=== PATIENT | male | born 1985 | race Caucasian/White ===

== ENCOUNTER 2022-04-19 17:43 | Inpatient (IN) | payer MEDICAID, SELFPAY ==
[2022-04-19] VITALS (17 sets, daily range): BP systolic 105–155; BP diastolic 72–86; PULSE 92–107; RESP 14–41; TEMP 36.7–38.2; O2SAT 83–100; BMI 80.5; BMI 76.5
--- NOTE | 2022-04-19 18:05 | EKG12_ITS ---
Test Reason : SOB Blood Pressure : / mmHG Vent. Rate : 100 BPM Atrial Rate : 100 BPM P-R Int : 174 ms QRS Dur : 108 ms QT Int : 366 ms P-R-T Axes : 039 -44 072 degrees QTc Int : 472 ms Normal sinus rhythm Possible Left atrial enlargement Left axis deviation Abnormal ECG Confirmed by JOANNA KIRKPATRICK, AGNES ([id number]), editor index ANGELIKA RYAN ([id number]) on 04/22/2022 1:54:27 PM Referred By: Confirmed By:AGNES MARSHALL MD
--- NOTE | 2022-04-19 18:06 | ED.VIS.DYS ---
HPI History of Present Illness Chief Complaint: Shortness of Breath Informant: patient, spouse/S.O. and other Narrative Narrative: Brought in by EMS from home increasing respiratory distress today. He reports this morning had migraine headaches he slept he states he woke up confused, he was on the couch sleeping they report he is taking short fast breaths home. EMS was contacted. History of sleep apnea last hospitalization 18 months ago at [facility] he was told he needed a sleep mask however due to cost over thousand dollars he did not pick this up. He chews tobacco. 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 Reported recent increasing leg swelling. He moved recently to the area with his significant other. Significant others daughter also present. He is hypoxic from EMS arrival. Reports cough when he chews tobacco however no upper respiratory illness. Prior similar symptoms: Yes [facility] Medical History (Updated 04/20/22 @ 00:[address] Yrn Ghosh DO) Horseshoe kidney Sleep apnea Home Medications NK 04/19/22 [History Last Taken Unknown] Allergy/AdvReac Type Severity Reaction Status Date / Time No Known Allergies Allergy Verified 04/19/22 17:45 Social History Smoking Status: Current every day smoker tobacco type: smokeless tobacco ROS ROS ED Constitutional Constitutional ED: Denies chills, fever(s) or sweats Eyes Eyes: Denies change in vision ENT ENT ED: Denies dysphagia or sore throat Cardiovascular Cardiovascular: Denies chest pain, leg edema, palpitations or racing heartbeat Respiratory/Chest Respiratory/Chest: Reports dyspnea; Denies cough or dyspnea on exertion Gastrointestinal Gastrointestinal: Denies abdominal pain, diarrhea, nausea or vomiting Genitourinary Genitourinary ED: Denies dysuria, hematuria or urinary frequency Musculoskeletal Musculoskeletal: Denies back pain, extremity pain or neck pain Integumentary Denies rash or wounds Neurologic Neurologic: Reports headache(s); Denies paresthesias or weakness EXAM Physical Exam Const Vital Signs: 04/19/22 17:45 04/19/22 17:51 04/19/22 17:50 Temperature 98.1 F 98.1 F Temperature Source Temporal Temporal Pulse Rate 107 H 99 Respiratory Rate 41 H 29 H Respiratory Effort Respiratory Pattern Blood Pressure 155/86 H Blood Pressure Mean 109 Pulse Ox 83 99 99 Oxygen Delivery Method Nasal Cannula Non-Rebreather Non-Rebreather Oxygen Flow Rate (L/min) 5 15 15 Fraction of Inspired Oxygen (FIO2) 04/19/22 18:00 04/19/22 18:05 04/19/22 18:45 Temperature Temperature Source Pulse Rate 98 Respiratory Rate 17 Respiratory Effort Respiratory Pattern Tachypnea Normal Blood Pressure Blood Pressure Mean Pulse Ox 94 Oxygen Delivery Method Room Air Oxygen Flow Rate (L/min) Fraction of Inspired Oxygen (FIO2) 50 04/19/22 19:24 04/19/22 19:43 04/19/22 19:46 Temperature Temperature Source Pulse Rate 94 Respiratory Rate 17 15 Respiratory Effort Short of Breath Head Bobbing Respiratory Pattern Gasping Blood Pressure 105/73 Blood Pressure Mean 83 Pulse Ox 97 95 Oxygen Delivery Method Oxygen Flow Rate (L/min) Fraction of Inspired Oxygen (FIO2) 04/19/22 19:50 04/19/22 20:00 04/19/22 19:50 Temperature 99.3 F H Temperature Source Core Pulse Rate 96 94 95 Respiratory Rate 19 H 19 H 16 Respiratory Effort Respiratory Pattern Blood Pressure 105/73 Blood Pressure Mean 83 Pulse Ox 97 95 100 Oxygen Delivery Method Mechanical Ventilator Oxygen Flow Rate (L/min) Fraction of Inspired Oxygen (FIO2) 04/19/22 19:25 Temperature Temperature Source Pulse Rate 100 Respiratory Rate 18 Respiratory Effort Respiratory Pattern Normal Blood Pressure Blood Pressure Mean Pulse Ox 98 Oxygen Delivery Method Oxygen Flow Rate (L/min) Fraction of Inspired Oxygen (FIO2) 100 Positive obese Constitutional Narrative: Nonrebreather 15 L, no respiratory distress. Nutritional Appearance: obese HEENT Reports moist mucous membranes normocephalic and atraumatic Eyes PERRL, EOMs intact bilaterally and conjunctivae normal General Eye ED: Yes normal appearance of both eyes Neck no lymphadenopathy and supple General: Negative for tenderness Chest Wall Chest: Negative for tenderness Resp Resp Narrative: Shallow breath diminished at the bases. Effort and Inspection: Negative for respiratory distress Cardio regular rate, regular rhythm and no murmurs Peripheral Pulses: pulses 2+ throughout GI normal to inspection, nondistended, normoactive bowel sounds and non-tender Palpation: Negative for guarding or rebound tenderness present Back/Spine no CVA tenderness and no thoracic nor lumbar tenderness Extremity normal to inspection Extremity Narrative: Signs andMinimal swelling lower extremities. Tach x4. General Extremety ED: Yes edema; Negative for tenderness General Extremity: edema Neuro oriented x3 and no sensory deficits noted Sensorium / Orientation: awake and alert Skin no rashes or lesions noted and no wounds MDM MDM MDM Narrative Medical decision making narrative: Interventions / MDM: Differential diagnosis: Hypercapnia, hypoxia, SYMONE, OHS, pneumonia Diagnosis considered but do not suspect: Pneumothorax however symmetric breath sounds. My EKG interpretation: Sinus rate of 100, no ST changes, isolated T wave version in aVL. Nonspecific. Imaging independently reviewed and interpreted by myself: 1 view chest x-ray: No infiltrate. Post chest x-ray x-ray confirms ET tube above the kishan. KUB 1 view notes OG tube in place. External documents reviewed: N/A Test considered but not ordered:N/A ED course: Arrival hypoxic on nasal cannula he was placed on a nonrebreather with improved oxygenation. He is alert and oriented during my evaluation. History concern for hypercapnia with reported confusion throughout the day. He denies any cough symptoms except when he chews tobacco there is been no fevers. Chest x-ray is no infiltrates. ABG noted pH of 7.08, CO2 of 136 PO2 of 222. He is placed on a BiPAP by respiratory due to hypercapnia. Labs with a white count 11 hemoglobin 14.4 creatinine 1.13.4 EKG did not have any abnormality. BNP 58. Re-evaluation: While on the BiPAP, patient unresponsive, more obtunded. Decision was made to intubate. Post chest x-ray confirmed positioning. Reported by respiratory while moving the patient, tube did progress therefore pulled back. COVID testing negative. I discussed with hospitalist for admission to ICU. Butterfield catheter placed for I's and O's. Disposition discussed with patient/family/significant other: Family Case discussed with consulting clinician: Hospitalist, Dr. Plasencia Procedure note: Intubation: Emergent due to hypercapnia now obtunded. Patient preoxygenated with his BiPAP in the 90s. Maintain an upright position, after mass was removed, plan with out sedation, however manipulation jawline he was clenching his eyes start opening he was not responsive. He was given 30 mg of etomidate, sedation achieved, MAC 4 blade was used direct visualization of the cords, 7.5 [place] tube was placed 26 cm at the lips. Held and secured by hand, I cannot auscultate bilateral breath sounds due to patient's body habitus. During this time, there was condensation pulse ox briefly dipped to the 60s went up to the 80s and low 90s. Prior to securing the tube, attempted to visualize tube through a bronchoscope nasally on the left side however due to secretions I could not see this directly with this. Suctioning around the tube due to emesis. While tube was held and secured, he was given succinylcholine 100 mg IV, he is more relaxed, I placed the glide a scope in and directly visualized that the tube was originally in place and secured. Tube was secured down by respiratory. Post chest x-ray films confirmed positioning. Lab Data Attestation: I reviewed the patient's lab results. Labs: Laboratory Results - last 24 hr 04/19/22 04/19/22 04/19/22 18:00 18:00 18:00 WBC 11.1 H RBC 5.02 Hgb 14.4 Hct 49.3 MCV 98.2 H MCH 28.7 MCHC 29.2 L RDW Std Deviation 53.9 H RDW Coeff of Zulma 15.0 H Plt Count 309 MPV 9.7 Immature Gran % (Auto) 3.100 H Neut % (Auto) 78.1 H Lymph % (Auto) 10.7 L [place] % (Auto) 6.9 Eos % (Auto) 0.4 Baso % (Auto) 0.8 Absolute Neuts (auto) 8.7 H Absolute Lymphs (auto) 1.19 Nucleated RBC % 1.6 PT 14.8 INR 1.2 APTT 26.8 Sodium 137 Potassium 5.4 H Chloride 97 L Carbon Dioxide 31.0 Anion Gap 9 BUN 10 Creatinine 1.03 Estim Creat Clear Calc 93.59 Est GFR (MDRD) Af Amer 105 Est GFR (MDRD) Non-Af 87 BUN/Creatinine Ratio 9.7 L Glucose 220 H Calcium 8.9 Total Bilirubin 0.40 AST 76 H ALT 90 H Alkaline Phosphatase 94 Total Creatine Kinase B-Natriuretic Peptide Total Protein 7.7 Albumin 2.7 L Globulin 5.0 H Albumin/Globulin Ratio 0.5 L Triglycerides 04/19/22 04/19/22 18:00 18:00 WBC RBC Hgb Hct MCV MCH MCHC RDW Std Deviation RDW Coeff of Zulma Plt Count MPV Immature Gran % (Auto) Neut % (Auto) Lymph % (Auto) [place] % (Auto) Eos % (Auto) Baso % (Auto) Absolute Neuts (auto) Absolute Lymphs (auto) Nucleated RBC % PT INR APTT Sodium Potassium Chloride Carbon Dioxide Anion Gap BUN Creatinine Estim Creat Clear Calc Est GFR (MDRD) Af Amer Est GFR (MDRD) Non-Af BUN/Creatinine Ratio Glucose Calcium Total Bilirubin AST ALT Alkaline Phosphatase Total Creatine Kinase 87 B-Natriuretic Peptide 58.4 Total Protein Albumin Globulin Albumin/Globulin Ratio Triglycerides 107 ABG Data ABG results: ABG 04/19/22 18:26 Specimen Type ART Sample Site R Radial pH 7.08 L* Bicarbonate Actual 40.4 H Total CO2 45 Base Excess 10 H O2 Saturation 99 ABG pCO2 136.5 H* ABG pO2 222 H Raza Test Positive O2 Delivery Device NRB Liter Flow 15.0 Crit Call To/Read Back Yes Blood Gas Notified Whom Le Radiography Diagnostic Testing: Clinical Impression(s) from Imaging Studies Chest X-Ray 04/19/22 18:30 IMPRESSION: 1. Cardiomegaly, mild vascular congestion without tanya interstitial edema. 2. Bibasilar atelectasis mild volume loss without focal infiltrate. Electronically Signed: Abdoul Matthew MD at 18:56 EST , Chest X-Ray 04/19/22 19:31 IMPRESSION: 1. ET tube and NG tube placed in the interval projecting in normal position. 2. Stable cardiomegaly, no evidence congestive failure. 3. Shallow inspiration bibasilar atelectasis with moderate worsening. Superimposed infiltrates are a consideration. Electronically Signed: Abdoul Matthew MD at 20:15 EST , KUB X-Ray 04/19/22 19:49 IMPRESSION: 1. NG tube extends into the proximal stomach. 2. Non-obstructive bowel gas pattern. Electronically Signed: Abdoul Matthew MD at 20:19 EST , EKG Initial EKG: Attestation: I personally reviewed and interpreted this EKG as follows: Comments: Sinus rate of 100, no ST changes, isolated T wave version in aVL. Nonspecific. Critical Care Time Critical Care Time: Yes Critical care time (excluding procedures): 30-74 minutes, Discussing w/Patient &/or Family/Radioisotope Technician, Discussing w/Consultants, Arranging Admission or Transfer, Performing Direct Patient Care at Bedside and - (40 minutes) Discharge Plan Dx/Rx/DC Orders Clinical Impression: Acute respiratory failure with hypoxia and hypercapnia, Sleep apnea, Chews tobacco Disposition Disposition: Acute Care Hospital [facility] Discharge Date/Time: 04/19/22 21:29
[2022-04-19 18:30] LABS: Allen Test Positive; Base Excess 10 mmol/L (-2 to +2); Bicarbonate 40.4 mmol/L (22-26); Blood Gas Specimen Type ART; O2 Delivery Device NRB; PO2 222 mmHG (75-100); SITE R Radial; SO2 99 % (95-99); Total Carbon Dioxide 45 mmol/L; pCO2 136.5 mmHg (35-45); pH 7.08 (7.35-7.45)
--- NOTE | 2022-04-19 18:30 | RAD_ITS ---
INDICATION: sob EXAMINATION/TECHNIQUE: X-RAY - XR Chest 1 View COMPARISON: No previous relevant examinations available for comparison.. FINDINGS: LIFE-SUPPORT AND LINES: 1. None HEART AND VESSELS: Cardiac silhouette is large, there is mild vascular congestion without tanya interstitial edema. LUNGS AND PLEURAL SPACES: Shallow inspiration crowding of bronchovascular markings without focal infiltrate or consolidation. No pulmonary mass is noted. MEDIASTINUM AND HILAR REGIONS: No masses adenopathy noted. No areas of calcification. Visualized upper airway is normal in position. BONY ELEMENTS: No acute bony changes noted. RAD/Chest 1 View (Portable) IMPRESSION: 1. Cardiomegaly, mild vascular congestion without tanya interstitial edema. 2. Bibasilar atelectasis mild volume loss without focal infiltrate. Electronically Signed: Abdoul Matthew MD at 18:56 EST ,
[2022-04-19 18:36] LABS: Absolute Lymphocyte Count 1.19 X10^3/uL (0.83-4.51); Absolute Neutrophil Count 8.7 X10^3/uL (2.0-7.7); Basophil# 0.09 X10^3/uL; Basophil% 0.8 % (0-1); Eosinophil# 0.04 X10^3/uL; Eosinophils% 0.4 % (0-5); Hematocrit 49.3 % (40-54); Hemoglobin 14.4 g/dL (13.0-16.5); Lymphocyte # 1.19 X10^3/ul (0.83-4.51); Lymphocyte % 10.7 % (19-41); Mean Corp Hgb Conc 29.2 g/dL (32-36); Mean Corpuscular Hgb 28.7 pg (27.0-32.0); Mean Corpuscular Volume 98.2 fL (80-94); Mean Platelet Vol. 9.7 fl (6.2-12.0); Monocyte# 0.77 X10^3/uL; Monocyte% 6.9 % (0-10); NRBC Flagged by Analyzer 1.6 % (0-5); Neutrophil # 8.69 X10^3/uL (2.7-7.7); Neutrophil % 78.1 % (47-70); Platelet Count 309 K/mm3 (150-450); RBC Distribution Width SD 53.9 fl (35.1-43.9); Red Blood Count 5.02 M/mm3 (4.6-6.2); White Blood Count 11.1 K/mm3 (4.4-11.0)
[2022-04-19 18:42] LABS: ALB/GLOB Ratio 0.5 RATIO (0.9-2.4); AST(SGOT) 76 U/L (15-37); Alanine Aminotransfer ALT/SGPT 90 U/L (16-61); Albumin, Serum 2.7 g/dL (3.2-5.0); Alkaline Phosphatase 94 U/L (45-117); Anion Gap 9 (5-15); BUN 10 mg/dL (7-18); BUN/Creat Ratio 9.7 RATIO (10-20); Calcium,Total 8.9 mg/dL (8.5-10.1); Chloride 97 mmol/L (98-107); Creatinine, Serum 1.03 mg/dL (0.70-1.30); EST Glomerular Filtration Rate 87 mL/min (>60); Est Glom Filt Rate - Afr Amer 105 mL/min (>60); Estimated Creatinine Clearance 93.59 ml/min; Glucose 220 mg/dL (74-106); Potassium 5.4 mmol/L (3.5-5.1); Protein, Total 7.7 g/dL (6.4-8.2); Sodium Level 137 mmol/L (136-145)
[2022-04-19 19:00] LABS: BNP,B-Type NATRIURETIC PEPTIDE 58.4 pg/mL (0-100)
[2022-04-19] MEDS: Etomidate 20 MG/10 ML Vial 30 MG IV (19:16)
[2022-04-19 19:17] LABS: International Normalized Ratio 1.2; Prothrombin Time (Protime)PT. 14.8 SECONDS (11.7-14.9)
[2022-04-19 19:18] LABS: Partial Thromboplast Time 26.8 Seconds (24.1-36.2)
[2022-04-19] MEDS: Succinylcholine Chloride 200 MG/10 ML SYRINGE 100 MG IV (19:26)
--- NOTE | 2022-04-19 19:31 | RAD_ITS ---
INDICATION: intubation EXAMINATION/TECHNIQUE: X-RAY - XR Chest 1 View COMPARISON: Earlier same date at 6:27 PM, 04/19/2022 FINDINGS: LIFE-SUPPORT AND LINES: 1. ET tube is in place the interval, projecting level of the aortic knob, approximately 2.3 cm above the kishan in normal position. 2. Interval placement of NG tube extending below the LEFT hemidiaphragm projecting within the stomach. HEART AND VESSELS: Cardiac silhouette is large, vascular congestion. No tanya congestive failure. LUNGS AND PLEURAL SPACES: Shallow inspiration bibasilar atelectasis with mild worsening at the lung bases. No consolidation, no effusion. No pulmonary mass is noted. MEDIASTINUM AND HILAR REGIONS: No masses adenopathy noted. No areas of calcification. Visualized upper airway is normal in position. BONY ELEMENTS: No acute bony changes noted. RAD/Chest 1 View (Portable) IMPRESSION: 1. ET tube and NG tube placed in the interval projecting in normal position. 2. Stable cardiomegaly, no evidence congestive failure. 3. Shallow inspiration bibasilar atelectasis with moderate worsening. Superimposed infiltrates are a consideration. Electronically Signed: Abdoul Matthew MD at 20:15 EST ,
--- NOTE | 2022-04-19 19:49 | RAD_ITS ---
INDICATION: NG Insertion EXAMINATION/TECHNIQUE: X-RAY - XR Abdomen 1 View COMPARISON: None FINDINGS: Tubes and lines: 1. NG tube extends into the proximal stomach.. BOWEL GAS PATTERN: Non-obstructive. No bowel or stomach distention. FREE AIR: Not assessed on a single supine view. ORGANOMEGALY: Not seen. CALCIFICATIONS: No abnormal calcifications observed. LOWER CHEST: No acute pathology. BONES AND SOFT TISSUES: No acute pathology. RAD/Abdomen Single View (Portable) IMPRESSION: 1. NG tube extends into the proximal stomach. 2. Non-obstructive bowel gas pattern. Electronically Signed: Abdoul Matthew MD at 20:19 EST ,
--- NOTE | 2022-04-19 20:05 | PCM.HP.STD ---
HPI - General General Date of Admission: 04/19/22 Date of Service: 04/19/22 Chief Complaint: Confusion HPI Narrative ISELA MORRISSEY, is a 36 M with hx of SYMONE who presented to [facility] 04/19/22 w/ confusion after waking up this afternoon from a nap. He was seen at [facility] around 18 months ago and they advised he obtain a cpap but it was too expensive and he has yet to obtain one. EMS arrived at his home at 630 and put him on oxygen and brought him to the ED where he was placed on BiPAP, initially in ED was alert and oriented x3 however progressively became more lethargic and required intubation secondary to acute combined respiratory failure. Hospitalist consulted for admission. Spoke with patient's family at bedside as he is intubated and sedated and they report that he was in his usual health until last night when he had a headache and slept on the couch, in the morning he was tired and was not eating well and waxed and waned throughout the day but frequently was sleeping. He then around 430 was progressively more confused and EMS was contacted shortly thereafter and he was brought to the ED. 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 Per family member at bedside he uses Breathe Right nasal strips which were helping his breathing but they ran out and he also recently gained weight and has been doing worse since that time. He has also had some intermittent swelling in his feet noticed by family and family member noted that previously he had taken a water pill every other day but has not for some time. Chews tobacco but no other tobacco products or drugs, used to drink but has not for the past 1 year since living with a family member. [facility] Medical History (Updated 04/19/22 @ 20:[address] Agueda Plasencia MD) Horseshoe kidney Sleep apnea Home Medications NK 04/19/22 [History Last Taken Unknown] Allergy/AdvReac Type Severity Reaction Status Date / Time No Known Allergies Allergy Verified 04/19/22 17:45 Social History Smoking Status: Current every day smoker tobacco type: smokeless tobacco ROS ROS Narrative Unable to obtain ROS secondary to intubated and sedated Vital Signs Vital Signs Vital Signs: 04/19/22 17:45 04/19/22 17:51 04/19/22 17:50 Temperature 98.1 F 98.1 F Temperature Source Temporal Temporal Pulse Rate 107 H 99 Respiratory Rate 41 H 29 H Respiratory Effort Respiratory Pattern Blood Pressure 155/86 H Blood Pressure Mean 109 Pulse Ox 83 99 99 Oxygen Delivery Method Nasal Cannula Non-Rebreather Non-Rebreather Oxygen Flow Rate (L/min) 5 15 15 Fraction of Inspired Oxygen (FIO2) 04/19/22 18:00 04/19/22 18:05 04/19/22 18:45 Temperature Temperature Source Pulse Rate 98 Respiratory Rate 17 Respiratory Effort Respiratory Pattern Tachypnea Normal Blood Pressure Blood Pressure Mean Pulse Ox 94 Oxygen Delivery Method Room Air Oxygen Flow Rate (L/min) Fraction of Inspired Oxygen (FIO2) 50 04/19/22 19:24 Temperature Temperature Source Pulse Rate Respiratory Rate Respiratory Effort Short of Breath Head Bobbing Respiratory Pattern Gasping Blood Pressure Blood Pressure Mean Pulse Ox Oxygen Delivery Method Oxygen Flow Rate (L/min) Fraction of Inspired Oxygen (FIO2) Weight Weight: 233.3 kg Body Mass Index (BMI) 80.5 Physical Exam Narrative General: Presently intubated and sedated HEENT: Atraumatic, normocephalic Eyes: Initially opening eyes spontaneously while OG being placed but is more comfortable reevaluation Neck: Large circumference Respiratory: Mechanically ventilated, diminished breath sounds largely due to body habitus Cardiovascular: Regular rate and rhythm GI: Soft, nontender, nondistended Extremities: Swelling lower extremities only trace pitting Musculoskeletal: Presently intubated and sedated, swelling as above Neuro: Unable to participate in neuro exam due to intubated and sedated but did have cough and would wake up to stimulation Skin: Multiple superficial wounds on face which family reports is chronic Psych: Unable to cooperate secondary to intubated and sedated Results Lab / Micro Data Result Diagrams: 04/19/22 18:00 04/19/22 18:00 Labs: Laboratory Results - last 24 hr 04/19/22 18:00: WBC 11.1 H, RBC 5.02, Hgb 14.4, Hct 49.3, MCV 98.2 H, MCH 28.7, MCHC 29.2 L, RDW Std Deviation 53.9 H, RDW Coeff of Zulma 15.0 H, Plt Count 309, MPV 9.7, Immature Gran % (Auto) 3.100 H, Neut % (Auto) 78.1 H, Lymph % (Auto) 10.7 L, [place] % (Auto) 6.9, Eos % (Auto) 0.4, Baso % (Auto) 0.8, Absolute Neuts (auto) 8.7 H, Absolute Lymphs (auto) 1.19, Nucleated RBC % 1.6 04/19/22 18:00: PT 14.8, INR 1.2, APTT 26.8 04/19/22 18:00: Sodium 137, Potassium 5.4 H, Chloride 97 L, Carbon Dioxide 31.0, Anion Gap 9, BUN 10, Creatinine 1.03, Estim Creat Clear Calc 93.59, Est GFR (MDRD) Af Amer 105, Est GFR (MDRD) Non-Af 87, BUN/Creatinine Ratio 9.7 L, Glucose 220 H, Calcium 8.9, Total Bilirubin 0.40, AST 76 H, ALT 90 H, Alkaline Phosphatase 94, Total Protein 7.7, Albumin 2.7 L, Globulin 5.0 H, Albumin/Globulin Ratio 0.5 L 04/19/22 18:00: B-Natriuretic Peptide 58.4 Micro: Microbiology 04/19/22 18:20 Nasal Secretion SARS-CoV-2 Antigen (Rapid) - Final ABG Data ABG results: ABG 04/19/22 18:26 Specimen Type ART Sample Site R Radial pH 7.08 L* Bicarbonate Actual 40.4 H Total CO2 45 Base Excess 10 H O2 Saturation 99 ABG pCO2 136.5 H* ABG pO2 222 H Raza Test Positive O2 Delivery Device NRB Liter Flow 15.0 Crit Call To/Read Back Yes Blood Gas Notified Whom Le Radiology Impression Chest X-Ray 04/19/22 18:30 IMPRESSION: 1. Cardiomegaly, mild vascular congestion without tanya interstitial edema. 2. Bibasilar atelectasis mild volume loss without focal infiltrate. Electronically Signed: Abdoul Matthew MD at 18:56 EST , Assessment & Plan Assessment/Plan (1) Acute respiratory failure with hypoxia and hypercapnia: PLAN: Plan #Acute combined hypoxic and hypercapnic respiratory failure and suspect component of chronic hypercarbic respiratory failure given SYMONE noncompliant with treatment -In ED initially improved with O2 and BiPAP however progressively became more lethargic and blood gas showed pH of 7.08 with PCO2 of 136 -Chest x-ray demonstrated cardiomegaly with mild vascular congestion without tanya interstitial edema and demonstrated bibasilar atelectasis without focal infiltrate -Presently intubated and sedated, will repeat ABG, nebs ordered -Suspect patient's headache and lethargy were due to hypercapnia due to untreated SYMONE with subsequent small shallow breaths contributing to hypoxia -We will obtain sputum culture, COVID-negative, will obtain respiratory panel and flu -We will obtain echo given some concomitant swelling -No antibiotics started as no infiltrate does not seem to have acute infection -Pulm/ICU consulted #Mild increase in LFTs -Given obesity but also alcohol history will obtain right upper quadrant #DVT ppx: Lovenox SQ twice daily Agueda Plasencia MD Time spent in the patient's overall evaluation,decision-making process, review of diagnostic data, adjustment of management, discussion with other providers, nursing nursing and ancillary staff involved in patient's care documentation, 60 minutes Charges/Coding Visit Charges Inpatient E&M: 11303 Init Hosp L2
[2022-04-19] MEDS: Propofol 10MG/Ml 1,000 MG/100 ML Bottle 14 MG CONT INF (20:13)
--- NOTE | 2022-04-19 20:49 | ECHOD_ITS ---
Reason For Study: DYSPNEA Procedure This was a 2D Doppler, Color Flow transthoracic echocardiogram. The study was technically difficult. Contrast deferred due to no on axis apical windows. Patient scanned supine. Exam performed portable in ICU/CCU. Left Ventricle Normal LV size. Moderate concentric left ventricular hypertrophy. The left ventricular ejection fraction is 55 %. Unable to assess diastolic function based on available data. Right Ventricle Normal right ventricle. Atria The left atrium is moderately enlarged. Normal right atrium. Mitral Valve Mitral valve not well visualized. The mitral valve is structurally normal. No prolapse or stenosis seen. Tricuspid Valve The tricuspid valve is not well visualized. Trivial tricuspid valve insufficiency. Unable to estimate RV systolic pressure due to insufficient tricuspid regurgitant envelope. Aortic Valve Trisinus/trileaflet aortic valve. Trivial aortic valve insufficiency. Pulmonic Valve The pulmonic valve is not well visualized. Great Vessels Mild to moderately dilated aortic root. Pericardium/Pleural No pericardial effusion. MMode/2D Measurements & Calculations LVIDd: 5.0 cm IVSd: 1.6 cm Ao root diam: 4.4 cm LVIDs: 3.6 cm LVPWd: 1.6 cm FS: 29.4 % LA dimension(2D): 4.5 cm Time Measurements MV dec time: 0.06 sec Doppler Measurements & Calculations MV E max bentley: 80.6 cm/sec Lat Peak E' Bentley: 8.0 cm/sec Med Peak E' Bentley: 11.1 cm/sec MV A max bentley: 45.2 cm/sec E/E' lat: 10.1 E/E' med: 7.3 MV E/A: 1.8 MV V2 max: 68.3 cm/sec Ao V2 max: 119.9 cm/sec MV max P.9 mmHg MV dec slope: 1360 cm/sec2 Ao max P.8 mmHg MV V2 mean: 48.1 cm/sec Ao V2 mean: 85.9 cm/sec MV mean P.0 mmHg Ao mean P.3 mmHg MV V2 VTI: 14.1 cm Ao V2 VTI: 21.6 cm AV (velocity ratio): 0.68 LV V1 max: 70.8 cm/sec PA V2 max: 94.8 cm/sec LV V1 max P.0 mmHg PA V2 mean: 69.1 cm/sec LV V1 mean P.0 mmHg LV V1 mean: 46.0 cm/sec LV V1 VTI: 14.6 cm ECHO/Echo Complete Interpretation Summary The study was technically difficult. Moderate concentric left ventricular hypertrophy. The left ventricular ejection fraction is 55 %. Mild to moderately dilated aortic root. Ordering Physician: Agueda Plasencia Referring Physician: CARMEN PCP Performed By: Kymberly Chaves RCS
[2022-04-19 21:05] LABS: CPK Total, Creatine Kinase 87 U/L (39-308); Triglycerides 107 mg/dL
[2022-04-19 21:56] LABS: Base Excess 7 mmol/L (-2 to +2); Blood Gas Specimen Type ART; FI02 40; Mode AC; O2 Delivery Device ET Tube; PEEP 5; PO2 73 mmHG (75-100); RR 16; SITE L Brach; SO2 92 % (95-99); Total Carbon Dioxide 35 mmol/L; Vt 500; pCO2 66.3 mmHg (35-45); pH 7.31 (7.35-7.45)
[2022-04-19] MEDS: Chlorhexidine 15 ML PO (22:31)
[2022-04-19] MEDS: CHLORHEXIDINE GLUC 2% CLOTH 1 EACH TOWELETTE TOPICAL (22:37)
[2022-04-19] MEDS: Enoxaparin 40 MG/0.4 ML Syringe SC (22:37)
[2022-04-20] VITALS (31 sets, daily range): BP systolic 105–162; BP diastolic 44–89; PULSE 82–100; RESP 13–24; TEMP 36.9–38.8; O2SAT 91–99
[2022-04-20 00:01] LABS: Bedside Glucose 97 mg/dL (74-106)
[2022-04-20] MEDS: Propofol 10MG/Ml 1,000 MG/100 ML Bottle 14 MG CONT INF (01:30)
[2022-04-20] MEDS: Ipratropium/Albuterol Sulfate 3 ML AMPUL.NEB INHALATION ×4 (02:13→19:01)
[2022-04-20 04:05] LABS: Absolute Lymphocyte Count 1.75 X10^3/uL (0.83-4.51); Absolute Neutrophil Count 7.1 X10^3/uL (2.0-7.7); Basophil# 0.05 X10^3/uL; Basophil% 0.5 % (0-1); Eosinophil# 0.04 X10^3/uL; Eosinophils% 0.4 % (0-5); Hematocrit 45.3 % (40-54); Hemoglobin 13.2 g/dL (13.0-16.5); Lymphocyte # 1.75 X10^3/ul (0.83-4.51); Lymphocyte % 16.4 % (19-41); Mean Corp Hgb Conc 29.1 g/dL (32-36); Mean Corpuscular Hgb 28.1 pg (27.0-32.0); Mean Corpuscular Volume 96.4 fL (80-94); Mean Platelet Vol. 10.9 fl (6.2-12.0); Monocyte# 1.62 X10^3/uL; Monocyte% 15.2 % (0-10); NRBC Flagged by Analyzer 1.9 % (0-5); Neutrophil # 7.09 X10^3/uL (2.7-7.7); Neutrophil % 66.5 % (47-70); POSITIVE COUNT YES; POSITIVE DIFFERENTIAL YES; Platelet Count 250 K/mm3 (150-450); RBC Distribution Width SD 52.8 fl (35.1-43.9); White Blood Count 10.7 K/mm3 (4.4-11.0)
[2022-04-20 04:07] LABS: Differential Indicated SCAN CRITERIA MET
[2022-04-20 04:13] LABS: Mucous, Urine 0 SEEN /hpf (<or=2+)
[2022-04-20 04:14] LABS: Color, Urine Yellow (Yellow); Glucose, Dipstick Normal (Normal); Ketone-Dipstick Negative (Negative); Leukocyte Esterase-Dipstick 100 /ul (Negative); Nitrite-Dipstick Negative (Negative); Occult Blood-Urine 50 /ul (Negative); Protein-Dipstick 100 mg/dl (Negative); Urine Bilirubin Dipstick Negative (Negative); Urine Clarity Clear (Clear); Urine Urobilinogen 1 mg/dl (Normal)
[2022-04-20 04:29] LABS: Amorphous Sediment 1+; Bacteria 2+ /hpf (None Seen); Red Blood Cells-Urine 0-5 SEEN /hpf (0-5); Squamous Epithelial Cells - UA 0-5 SEEN /hpf (0-5); White Blood Cells 0-5 SEEN /hpf (0-5)
[2022-04-20 04:32] LABS: ALB/GLOB Ratio 0.5 RATIO (0.9-2.4); AST(SGOT) 76 U/L (15-37); Alanine Aminotransfer ALT/SGPT 93 U/L (16-61); Albumin, Serum 2.3 g/dL (3.2-5.0); Alkaline Phosphatase 82 U/L (45-117); Anion Gap 6 (5-15); BUN 15 mg/dL (7-18); BUN/Creat Ratio 12.4 RATIO (10-20); Calcium,Total 8.7 mg/dL (8.5-10.1); Chloride 97 mmol/L (98-107); Creatinine, Serum 1.21 mg/dL (0.70-1.30); EST Glomerular Filtration Rate 72 mL/min (>60); Est Glom Filt Rate - Afr Amer 87 mL/min (>60); Estimated Creatinine Clearance 76.89 ml/min; Globulin 4.2 g/dL (2.2-4.2); Glucose 100 mg/dL (74-106); Potassium 4.5 mmol/L (3.5-5.1); Procalcitonin 0.37 ng/mL (0.00-0.09); Protein, Total 6.5 g/dL (6.4-8.2); Sodium Level 139 mmol/L (136-145); Thyroid Stim Hormone (TSH) 8.81 uIU/mL (0.358-3.74)
[2022-04-20] MEDS: 0.9% Saline Lock 10 ML Syringe IV ×5 (04:52→22:50)
--- NOTE | 2022-04-20 05:05 | PCM.RX.CS ---
Consult Pharmacy has been consulted to manage selected antiobiotic: Vancomycin Type of Consult: New start Prior Doses of Antibiotics Received/Current Regimen: Medications Vancomycin HCl 1,500 mg/ (Sodium Chloride) 530 mls @ 250 mls/hr IV Q8H ELSA Vancomycin HCl 2,000 mg/ (Sodium Chloride) 540 mls @ 250 mls/hr IV X1 ONE Stop: 04/20/22 06:39 Last Admin: 04/20/22 05:00 Dose: 250 mls/hr Labs: Sodium 139 mmol/L (136-145) 04/20/22 03:20 Potassium 4.5 mmol/L (3.5-5.1) 04/20/22 03:20 Chloride 97 mmol/L (98-107) L 04/20/22 03:20 Carbon Dioxide 36.0 mmol/L (21.0-32.0) H 04/20/22 03:20 Anion Gap 6 (5-15) 04/20/22 03:20 BUN 15 mg/dL (7-18) 04/20/22 03:20 Creatinine 1.21 mg/dL (0.70-1.30) 04/20/22 03:20 Est GFR (MDRD) Af Amer 87 mL/min (>60) 04/20/22 03:20 Est GFR (MDRD) Non-Af 72 mL/min (>60) 04/20/22 03:20 BUN/Creatinine Ratio 12.4 RATIO (10-20) 04/20/22 03:20 Glucose 100 mg/dL (74-106) 04/20/22 03:20 Microbiology: Microbiology 04/19/22 21:35 Mucosa - Nasopharyngeal Respiratory Panel (PCR) - Final 04/19/22 21:35 Mucosa - Nasopharyngeal Influenza Types A,B Direct FA (TARYN) - Final 04/19/22 18:20 Nasal Secretion SARS-CoV-2 Antigen (Rapid) - Final Weight used for dosin kg Goal Trough: 15-20 mcg/mL Pharmacy Plan for Drug Dosing: Pharmacy Service will continue to monitor and adjust dosing as required. Follow-Up Labs: Trough Vancomycin Labs to be done on [date and time ordered]: 04/21/22 @[id number]
[2022-04-20] MEDS: Propofol 10MG/Ml 1,000 MG/100 ML Bottle 21 MG CONT INF ×2 (06:17→10:25)
[2022-04-20 06:19] LABS: Differential Comment SCANNED
[2022-04-20 06:20] LABS: Platelet Estimate ADEQUATE (ADEQ)
[2022-04-20 06:25] LABS: Lactic Acid 1.4 mmol/L (0.4-1.9)
--- NOTE | 2022-04-20 07:09 | PN.HOSP_ITS ---
Reason for Visit Reason for Visit: Diagnoses Acute hypoxic and hypercapnic respiratory failure Subjective Subjective Is a 36 old morbidly obese white male who presented to the emergency department on 04/19/2019 3 in the evening after waking up in the afternoon from his nap with confusion. He was seen at [facility] around 18 months ago and they advised he obtain a CPAP for nocturnally but it was too expensive and he had not obtain 1. He was placed on BiPAP initially in the emergency department and was initially alert and oriented x3 however progressed to became more lethargic and required intubation secondary to acute hypoxic and hypercapnic respiratory failure. Patient was evidently in his usual state of health until last evening when he developed a headache and fell asleep on the couch. In the morning he was tired and was not eating well and was napping frequently. Patient is now alert and oriented. Follows all commands. Denies any complaints at this time. Pannus was noted to be fairly erythematous and concern for infect ion and therefore antibiotics were started through the night. Cultures were obtained prior to antibiotic usage. Objective Data Objective Data Vital Signs: Vital Signs Temp Pulse Resp BP Pulse Ox O2 Del Method O2 Flow Rate 100.5 F H 90 16 119/73 94 Mechanical Ventilator 15 04/20/22 06:00 04/20/22 06:00 04/20/22 06:00 04/20/22 06:00 04/20/22 06:00 04/20/22 06:00 04/19/22 17:51 FiO2 40 04/20/22 06:00 Oxygen Flow Rate (L/min) 15 Oxygen Delivery Method Mechanical Ventilator Weight: 217.9 kg Body Mass Index (BMI) 76.5 Intake & Output: Intake and Output for Last 24 Hours 04/18/22 04/19/22 04/20/22 23:59 23:59 23:59 Intake Total 43.13 / 59.63 198.75 / 198.75 Output Total 1450 / 1450 Balance 43.13 / 59.63 -1251.25 / -1251.25 Lab / Micro Data Result Diagrams: 04/20/22 03:20 04/20/22 03:20 Labs: Laboratory Results - last 24 hr 04/19/22 18:00: WBC 11.1 H, RBC 5.02, Hgb 14.4, Hct 49.3, MCV 98.2 H, MCH 28.7, MCHC 29.2 L, RDW Std Deviation 53.9 H, RDW Coeff of Zulma 15.0 H, Plt Count 309, MPV 9.7, Immature Gran % (Auto) 3.100 H, Neut % (Auto) 78.1 H, Lymph % (Auto) 10.7 L, Dawson % (Auto) 6.9, Eos % (Auto) 0.4, Baso % (Auto) 0.8, Absolute Neuts (auto) 8.7 H, Absolute Lymphs (auto) 1.19, Nucleated RBC % 1.6 04/19/22 18:00: PT 14.8, INR 1.2, APTT 26.8 04/19/22 18:00: Sodium 137, Potassium 5.4 H, Chloride 97 L, Carbon Dioxide 31.0, Anion Gap 9, BUN 10, Creatinine 1.03, Estim Creat Clear Calc 93.59, Est GFR (MDRD) Af Amer 105, Est GFR (MDRD) Non-Af 87, BUN/Creatinine Ratio 9.7 L, Glucose 220 H, Calcium 8.9, Total Bilirubin 0.40, AST 76 H, ALT 90 H, Alkaline Phosphatase 94, Total Protein 7.7, Albumin 2.7 L, Globulin 5.0 H, Albumin/Globulin Ratio 0.5 L 04/19/22 18:00: B-Natriuretic Peptide 58.4 04/19/22 18:00: Total Creatine Kinase 87, Triglycerides 107 04/19/22 23:37: POC Glucose 97 04/20/22 03:20: WBC 10.7, RBC 4.70, Hgb 13.2, Hct 45.3, MCV 96.4 H, MCH 28.1, MCHC 29.1 L, RDW Std Deviation 52.8 H, RDW Coeff of Zulma 15.0 H, Plt Count 250, MPV 10.9, Immature Gran % (Auto) 1.000 H, Neut % (Auto) 66.5, Lymph % (Auto) 16.4 L, Dawson % (Auto) 15.2 H, Eos % (Auto) 0.4, Baso % (Auto) 0.5, Absolute Neuts (auto) 7.1, Absolute Lymphs (auto) 1.75, Nucleated RBC % 1.9, Differential Comment SCANNED, Platelet Estimate ADEQUATE 04/20/22 03:20: Sodium 139, Potassium 4.5, Chloride 97 L, Carbon Dioxide 36.0 H, Anion Gap 6, BUN 15, Creatinine 1.21, Estim Creat Clear Calc 76.89, Est GFR (MDRD) Af Amer 87, Est GFR (MDRD) Non-Af 72, BUN/Creatinine Ratio 12.4, Glucose 100, Calcium 8.7, Total Bilirubin 0.30, AST 76 H, ALT 93 H, Alkaline Phosphatase 82, Total Protein 6.5, Albumin 2.3 L, Globulin 4.2, Albumin/Globulin Ratio 0.5 L , TSH 8.81 H 04/20/22 03:20: Procalcitonin 0.37 H 04/20/22 04:00: Urine Color Yellow, Urine Clarity Clear, Urine pH 6.0, Ur Specific Epworth 1.010, Urine Protein 100 H, Urine Glucose (UA) Normal, Urine Ketones Negative, Urine Occult Blood 50 H, Urine Nitrite Negative, Urine Bilirubin Negative, Urine Urobilinogen 1 H, Ur Leukocyte Esterase 100 H, Urine RBC 0-5 SEEN, Urine WBC 0-5 SEEN, Ur Squamous Epith Cells 0-5 SEEN, Amorphous Sediment 1+, Urine Bacteria 2+, Urine Mucus 0 SEEN 04/20/22 05:15: Lactic Acid 1.4 Micro: Microbiology 04/19/22 21:35 Mucosa - Nasopharyngeal Respiratory Panel (PCR) - Final 04/19/22 21:35 Mucosa - Nasopharyngeal Influenza Types A,B Direct FA (TARYN) - Final 04/19/22 18:20 Nasal Secretion SARS-CoV-2 Antigen (Rapid) - Final ABG Data ABG results: ABG 04/19/22 04/19/22 18:26 21:53 Specimen Type ART ART Sample Site R Radial L Brach pH 7.08 L* 7.31 L Bicarbonate Actual 40.4 H 33.0 H Total CO2 45 35 Base Excess 10 H 7 H O2 Saturation 99 92 L O2 % 40 ABG pCO2 136.5 H* 66.3 H ABG pO2 222 H 73 L Raza Test Positive N/A Respiration Rate 16 O2 Delivery Device NRB ET Tube Liter Flow 15.0 Vent Mode AC Tidal Volume 500 POC PEEP 5 Crit Call To/Read Back Yes Blood Gas Notified Whom Le Radiography Diagnostic Testing: Radiology Impression Chest X-Ray 04/19/22 18:30 IMPRESSION: 1. Cardiomegaly, mild vascular congestion without tanya interstitial edema. 2. Bibasilar atelectasis mild volume loss without focal infiltrate. Electronically Signed: Abdoul Matthew MD at 18:56 EST , Chest X-Ray 04/19/22 19:31 IMPRESSION: 1. ET tube and NG tube placed in the interval projecting in normal position. 2. Stable cardiomegaly, no evidence congestive failure. 3. Shallow inspiration bibasilar atelectasis with moderate worsening. Superimposed infiltrates are a consideration. Electronically Signed: Abdoul Matthew MD at 20:15 EST , KUB X-Ray 04/19/22 19:49 IMPRESSION: 1. NG tube extends into the proximal stomach. 2. Non-obstructive bowel gas pattern. Electronically Signed: Abdoul Matthew MD at 20:19 EST , Physical Exam Const alert, oriented x3, no apparent distress and well nourished Constitutional Narrative: Morbidly obese, young middle-aged white male, sitting up in bed watching television, currently intubated but follows commands HEENT head/scalp atraumatic and moist oral mucous membranes HEENT Narrative: ET tube and OG in place Head and Scalp: normocephalic Resp normal respiratory effort, no retractions, no use of accessory muscles and clear to auscultation bilaterally Resp Narrative: Diminished, breath sounds are distant but no adventitious sounds noted Auscultation: Negative for rales, rhonchi or wheezes Cardio regular rate, regular rhythm, S1 normal heart sound, S2 normal heart sound, no murmurs, no rub, no gallops, no clicks and no JVD GI normal to inspection, nondistended, normoactive bowel sounds, soft to palpation and non-tender GI Narrative: Large protuberant abdomen Extremity Extremity Narrative: Abdomen with erythematous area at distal pannus with edema that seems to be pitting in nature and tenderness, no open areas noted, chronic bilateral lower extremity edema, no cyanosis or clubbing Skin Skin Narrative: Bilateral lower extremity erythema consistent with chronic venous stasis, pannus as noted above Neuro CN's II-XII intact bilaterally, moves all extremities and no focal motor deficits Neuro Narrative: Patient intubated-unable to assess speech Psych Psych Narrative: Difficult to assess however eye contact is good and patient is awake Assessment & Plan Assessment/Plan (1) Acute respiratory failure with hypoxia and hypercapnia: (2) Transaminitis: (3) Elevated TSH: (4) Cellulitis: PLAN: Plan Acute hypoxic and hypercapnic respiratory failure -Suspect baseline hypercapnic respiratory failure however no documentation of this -Required intubation prior to admission with initial pH of 7.08 and a PCO2 of 136 -Chest x-ray demonstrated cardiomegaly with mild vascular congestion and no tanya interstitial edema with bibasilar atelectasis and no focal infiltrate -Repeat ABG shows improvement -Respiratory viral panel was unremarkable -COVID and flu were negative -Sputum sample and blood cultures are pending -UA is unremarkable not consistent with infection -Hold on empiric antibiotics -Procalcitonin was slight elevation at 0.37--> Vanco and Zosyn started -Pulmonary/CCM consulted Pannicular cellulitis -Patient had a fever overnight -Pro-Jaison is slightly elevated at 0.37 -Continue vancomycin and Zosyn -Cultures are pending Transaminitis -Etiology unclear -Suspect may be related to fatty liver disease based on body weight -Check ultrasound of right upper quadrant -We will likely need outpatient GI follow-up to address suspected fatty liver Elevated TSH -TSH was 8.81 -No documented history of hypothyroidism -Check free T4 Morbid Obesity -BMI 75.4 -Recommend wgt loss -Complicates treatment, prognosis, and outcomes DVT prophylaxis -Lovenox 40 mg BID Code status -Full Code Charges/Coding Visit Charges Inpatient E&M: 13393 Subs Hosp L2
--- NOTE | 2022-04-20 07:26 | US_ITS ---
EXAM: US ABDOMEN LIMITED, RIGHT UPPER QUADRANT CLINICAL INDICATION: Transaminitis TECHNIQUE: Real-time ultrasound of the right upper quadrant with image documentation. This report was created using [employer] report ROXIMITY technology. COMPARISON: None. FINDINGS: LIVER: The liver is increased in echogenicity. The liver measures 16.8 cm. No intrahepatic biliary ductal dilation. GALLBLADDER: The gallbladder wall measures 2 mm. No shadowing gallstone. No pericholecystic fluid. Negative sonographic Rowell''s sign. COMMON BILE DUCT: Common bile duct measures 3 mm. The proximal common bile duct is within normal limits for the patient''s age. PANCREAS: The pancreas is obscured by overlying bowel gas. RIGHT KIDNEY: The right kidney measures 11.1 x 4.7 x 6.6 cm. There is no hydronephrosis. No shadowing calculus. No focal lesion or perinephric collection is demonstrated. US/Abdomen Limited IMPRESSION: Increased echogenicity in the liver compatible with fatty infiltration. No other abnormalities identified. Electronically Signed: Geovani Villar MD at 16:03 [facility] ,
[2022-04-20 07:42] LABS: T4 Free Direct 1.24 ng/dL (0.76-1.46)
[2022-04-20] MEDS: CHLORHEXIDINE GLUC 2% CLOTH 1 EACH TOWELETTE TOPICAL (08:11)
[2022-04-20] MEDS: Nystatin Powder 15gm Bottle 1 APPLIC TOPICAL ×3 (08:11→22:50)
--- NOTE | 2022-04-20 08:29 | CON.PCM.CC_ITS ---
Assessment & Plan Assessment/Plan (1) Acute respiratory failure with hypoxia and hypercapnia: PLAN: Plan RECOMMENDATIONS: 1. Agree with empiric antibiotics 2. Spontaneous breathing and awakening trials per protocol 3. Initiate diuretic therapy 4. Obtain echocardiogram for evaluation of pulmonary hypertension 5. Monitor electrolytes for repletion IMPRESSIONS: 1. Acute on chronic combined respiratory failure Exact etiology is unclear at this time. Some concern for cor pulmonale, but obesity hypoventilation syndrome would also be a concern. Patient did not have significant congestion noted on chest x-ray, but this is limited secondary to body habitus. Sputum culture has been sent. Viral work-up has been unr emarkable. Pulmonary hypertension secondary to nocturnal hypoxia secondary to failure to control SYMONE would be a consideration. Spontaneous breathing and awakening trials per protocol. Patient does not have a significant leukocytosis, but did spike a fever overnight. We will treat with empiric an tibiotics until cultures available 2. Mild hepatitis/super morbid obesity/poor history/lack of insurance and PCP Complicates care, management, recovery and prognosis. Unknown social history outside of smokeless tobacco. Patient reportedly is not a drinker. Patient may have FORD or congestive hepatology. Patient did present with an elevated blood sugar and may need a work-up for diabetes in the future. Social work and case management to help with outpatient issues TIME: 34 minutes critical care time spent addressing patient's respiratory failure, hepatitis, review of all data and collaboration with care team HPI Consult Data Date of Consult: 04/20/22 HPI Narrative Reason for Consultation: Respiratory failure HPI Narrative: ISELA MORRISSEY is a 36 M, with past medical history listed below, who presents to [facility] on 04/19/2022 secondary to increasing respiratory distress and change in mental status. Patient reportedly has been told in the past they have sleep apnea, but due to insurance issues has not been able to initiate therapy. Patient reportedly has had progressive shortness of breath along with increased lower extremity edema. Patient does not have any history of previous lung issues, but was noted to be hypoxic on EMS arrival. Patient reportedly does use smokeless tobacco on a routine basis. On presentation to the ER, patient was afebrile, but tachycardic at 107 bpm and tachypneic at 41 breaths/min. Patient was saturating 83% on 5 L nasal cannula. Patient was then placed on a nonrebreather and saturations improved to 99%. Laboratory work-up showed a white blood cell count of 11.1, hemoglobin 14.4 and platelets of 309. Coagulation studies were within normal limits. Chemistry showed a potassium of 5.4, but renal function was normal at 1. Glucose is elevated at 220. BNP CK and triglycerides were all within normal limits. An ABG was obtained showing acute on chronic respiratory acidosis with increased AA gradient. Chest x-ray showed cardiomegaly with mild vascular congestion and bibasilar atelectasis. Unable to obtain additional information and review of systems secondary to intubation. COUNT INCLUDES [facility] Medical History Horseshoe kidney Sleep apnea Home Medications NK 04/19/22 [History Last Taken Unknown] Allergy/AdvReac Type Severity Reaction Status Date / Time No Known Allergies Allergy Verified 04/19/22 17:45 Social History Smoking Status: Current every day smoker tobacco type: smokeless tobacco ROS Review of Systems ROS Unobtainable: due to mental status Physical Exam Const no apparent distress Constitutional Narrative: Good vent synchrony. RASS -2. Morbidly obese General Appearance: patient mechanically ventilated HEENT normocephalic and head/scalp atraumatic HEENT Narrative: Glasses in place Mouth: endotracheal tube in place and OG tube in place Eyes PERRL, EOMs intact bilaterally and conjunctivae normal Eyes Narrative: Scleral injection noted Neck full ROM Neck Narrative: Unable to assess JVD secondary to body habitus Resp Auscultation: rales and diminished lung sounds; Negative for rhonchi or wheezes Cardio regular rate, regular rhythm, S1 normal heart sound, S2 normal heart sound, no murmurs, no rub and no gallops GI normal to inspection, nondistended, normoactive bowel sounds GI Narrative: Exam limited secondary to body habitus Extremity General Extremity: edema bilateral (4+) lower extremity Skin Skin Narrative: Some erythema of the pannus General Skin Exam: venous stasis Neuro no focal motor deficits Sensorium / Orientation: sedated on vent Psych Mood & Affect: flat affect Medical Records Data Attestation: I reviewed the patient's medical records Lab / Micro Data Attestation: I reviewed the patient's lab results. Result Diagrams: 04/20/22 03:20 04/20/22 03:20 Labs: Laboratory Results - last 24 hr 04/19/22 18:00: WBC 11.1 H, RBC 5.02, Hgb 14.4, Hct 49.3, MCV 98.2 H, MCH 28.7, MCHC 29.2 L, RDW Std Deviation 53.9 H, RDW Coeff of Zulma 15.0 H, Plt Count 309, MPV 9.7, Immature Gran % (Auto) 3.100 H, Neut % (Auto) 78.1 H, Lymph % (Auto) 10.7 L, Haskell % (Auto) 6.9, Eos % (Auto) 0.4, Baso % (Auto) 0.8, Absolute Neuts (auto) 8.7 H, Absolute Lymphs (auto) 1.19, Nucleated RBC % 1.6 04/19/22 18:00: PT 14.8, INR 1.2, APTT 26.8 04/19/22 18:00: Sodium 137, Potassium 5.4 H, Chloride 97 L, Carbon Dioxide 31.0, Anion Gap 9, BUN 10, Creatinine 1.03, Estim Creat Clear Calc 93.59, Est GFR (MDRD) Af Amer 105, Est GFR (MDRD) Non-Af 87, BUN/Creatinine Ratio 9.7 L, Glucose 220 H, Calcium 8.9, Total Bilirubin 0.40, AST 76 H, ALT 90 H, Alkaline Phosphatase 94, Total Protein 7.7, Albumin 2.7 L, Globulin 5.0 H, Albumin/G lobulin Ratio 0.5 L 04/19/22 18:00: B-Natriuretic Peptide 58.4 04/19/22 18:00: Total Creatine Kinase 87, Triglycerides 107 04/19/22 23:37: POC Glucose 97 04/20/22 03:20: WBC 10.7, RBC 4.70, Hgb 13.2, Hct 45.3, MCV 96.4 H, MCH 28.1, MCHC 29.1 L, RDW Std Deviation 52.8 H, RDW Coeff of Zulma 15.0 H, Plt Count 250, MPV 10.9, Immature Gran % (Auto) 1.000 H, Neut % (Auto) 66.5, Lymph % (Auto) 16.4 L, Haskell % (Auto) 15.2 H, Eos % (Auto) 0.4, Baso % (Auto) 0.5, Absolute Neuts (auto) 7.1, Absolute Lymphs (auto) 1.75, Nucleated RBC % 1.9, Differential Comment SCANNED, Platelet Estimate ADEQUATE 04/20/22 03:20: Sodium 139, Potassium 4.5, Chloride 97 L, Carbon Dioxide 36.0 H, Anion Gap 6, BUN 15, Creatinine 1.21, Estim Creat Clear Calc 76.89, Est GFR (MDRD) Af Amer 87, Est GFR (MDRD) Non-Af 72, BUN/Creatinine Ratio 12.4, Glucose 100, Calcium 8.7, Total Bilirubin 0.30, AST 76 H, ALT 93 H, Alkaline Phosphatase 82, Total Protein 6.5, Albumin 2.3 L, Globulin 4.2, Albumin/Globulin Ratio 0.5 L , TSH 8.81 H 04/20/22 03:20: Procalcitonin 0.37 H 04/20/22 03:20: Free T4 1.24 04/20/22 04:00: Urine Color Yellow, Urine Clarity Clear, Urine pH 6.0, Ur Specific [place] 1.010, Urine Protein 100 H, Urine Glucose (UA) Normal, Urine Ketones Negative, Urine Occult Blood 50 H, Urine Nitrite Negative, Urine Bilirubin Negative, Urine Urobilinogen 1 H, Ur Leukocyte Esterase 100 H, Urine RBC 0-5 SEEN, Urine WBC 0-5 SEEN, Ur Squamous Epith Cells 0-5 SEEN, Amorphous Sediment 1+, Urine Bacteria 2+, Urine Mucus 0 SEEN 04/20/22 05:15: Lactic Acid 1.4 Micro: Microbiology 04/19/22 21:35 Mucosa - Nasopharyngeal Respiratory Panel (PCR) - Final 04/19/22 21:35 Mucosa - Nasopharyngeal Influenza Types A,B Direct FA (TARYN) - Final 04/19/22 18:20 Nasal Secretion SARS-CoV-2 Antigen (Rapid) - Final ABG Data ABG results: ABG 04/19/22 04/19/22 18:26 21:53 Specimen Type ART ART Sample Site R Radial L Brach pH 7.08 L* 7.31 L Bicarbonate Actual 40.4 H 33.0 H Total CO2 45 35 Base Excess 10 H 7 H O2 Saturation 99 92 L O2 % 40 ABG pCO2 136.5 H* 66.3 H ABG pO2 222 H 73 L Raza Test Positive N/A Respiration Rate 16 O2 Delivery Device NRB ET Tube Liter Flow 15.0 Vent Mode AC Tidal Volume 500 POC PEEP 5 Crit Call To/Read Back Yes Blood Gas Notified Whom Le Attestation: I personally reviewed and interpreted this ABG as follows: (See HPI. Good response to ventilation with improved acute on chronic respiratory acidosis) Radiology Impression Chest X-Ray 04/19/22 18:30 IMPRESSION: 1. Cardiomegaly, mild vascular congestion without tanya interstitial edema. 2. Bibasilar atelectasis mild volume loss without focal infiltrate. Electronically Signed: Abdoul Matthew MD at 18:56 EST , Chest X-Ray 04/19/22 19:31 IMPRESSION: 1. ET tube and NG tube placed in the interval projecting in normal position. 2. Stable cardiomegaly, no evidence congestive failure. 3. Shallow inspiration bibasilar atelectasis with moderate worsening. Superimposed infiltrates are a consideration. Electronically Signed: Abdoul Matthew MD at 20:15 EST , KUB X-Ray 04/19/22 19:49 IMPRESSION: 1. NG tube extends into the proximal stomach. 2. Non-obstructive bowel gas pattern. Electronically Signed: Abdoul Matthew MD at 20:19 EST , Charges/Coding Procedures Hospitalists Procedures: [id number] Critial Care 1st Hr
--- NOTE | 2022-04-20 09:34 | NURSING ---
project associate called for PICC placement.
[2022-04-20] MEDS: Chlorhexidine 15 ML PO ×2 (10:09→22:49)
[2022-04-20] MEDS: Furosemide 40 MG/4 ML Vial IV ×2 (10:09→22:49)
[2022-04-20] MEDS: Enoxaparin 40 MG/0.4 ML Syringe SC ×2 (10:12→22:49)
[2022-04-20 10:50] LABS: Bedside Glucose 92 mg/dL (74-106)
[2022-04-20] MEDS: Vital High Protein 1,000 ML 70 ML GT (12:06)
[2022-04-20 13:15] LABS: M R Staph aureus DNA By PCR Negative (Negative); Probe Check PASS; Specimen Processing Control PASS
[2022-04-20] MEDS: Propofol 10MG/Ml 1,000 MG/100 ML Bottle 28 MG CONT INF ×3 (14:43→21:27)
[2022-04-20 15:11] LABS: Bedside Glucose 103 mg/dL (74-106)
[2022-04-20 18:56] LABS: Bedside Glucose 122 mg/dL (74-106)
[2022-04-20 23:10] LABS: Bedside Glucose 100 mg/dL (74-106)
[2022-04-21] VITALS (30 sets, daily range): BP systolic 95–173; BP diastolic 59–122; PULSE 81–102; RESP 13–24; TEMP 36.9–37.6; O2SAT 89–99
[2022-04-21] MEDS: Ipratropium/Albuterol Sulfate 3 ML AMPUL.NEB INHALATION ×3 (01:35→19:12)
[2022-04-21] MEDS: Propofol 10MG/Ml 1,000 MG/100 ML Bottle 28 MG CONT INF (01:35)
[2022-04-21 04:57] LABS: Absolute Lymphocyte Count 1.34 X10^3/uL (0.83-4.51); Absolute Neutrophil Count 8.3 X10^3/uL (2.0-7.7); Basophil# 0.05 X10^3/uL; Basophil% 0.5 % (0-1); Eosinophils% 1.8 % (0-5); Hematocrit 42.1 % (40-54); Hemoglobin 12.7 g/dL (13.0-16.5); Lymphocyte # 1.34 X10^3/ul (0.83-4.51); Lymphocyte % 12.2 % (19-41); Mean Corp Hgb Conc 30.2 g/dL (32-36); Mean Corpuscular Hgb 27.9 pg (27.0-32.0); Mean Corpuscular Volume 92.5 fL (80-94); Monocyte# 0.97 X10^3/uL; Monocyte% 8.8 % (0-10); NRBC Flagged by Analyzer 0 % (0-5); Neutrophil # 8.34 X10^3/uL (2.7-7.7); Neutrophil % 76.1 % (47-70); Platelet Count 237 K/mm3 (150-450); RBC Distribution Width CV 15.7 % (11.6-14.6); RBC Distribution Width SD 51.8 fl (35.1-43.9); Red Blood Count 4.55 M/mm3 (4.6-6.2)
[2022-04-21 05:25] LABS: ALB/GLOB Ratio 0.5 RATIO (0.9-2.4); AST(SGOT) 34 U/L (15-37); Alanine Aminotransfer ALT/SGPT 65 U/L (16-61); Alkaline Phosphatase 72 U/L (45-117); Anion Gap 6 (5-15); BUN 19 mg/dL (7-18); BUN/Creat Ratio 19.7 RATIO (10-20); Calcium,Total 8.2 mg/dL (8.5-10.1); Chloride 98 mmol/L (98-107); Creatinine, Serum 0.97 mg/dL (0.70-1.30); EST Glomerular Filtration Rate 94 mL/min (>60); Est Glom Filt Rate - Afr Amer 113 mL/min (>60); Estimated Creatinine Clearance 95.92 ml/min; Glucose 122 mg/dL (74-106); Potassium 3.6 mmol/L (3.5-5.1); Sodium Level 141 mmol/L (136-145)
[2022-04-21 05:26] LABS: Vancomycin, Trough Level 18.1 ug/mL (5.0-15.0)
[2022-04-21] MEDS: Nystatin Powder 15gm Bottle 1 APPLIC TOPICAL ×2 (05:31→21:55)
[2022-04-21] MEDS: Furosemide 40 MG/4 ML Vial IV ×3 (05:31→21:54)
--- NOTE | 2022-04-21 05:42 | PHA.PHARE_ITS ---
Consult Pharmacy has been consulted to manage selected antiobiotic: Vancomycin Type of Consult: Follow-up Prior Doses of Antibiotics Received/Current Regimen: Medications Vancomycin HCl 1,500 mg/ (Sodium Chloride) 530 mls @ 250 mls/hr IV Q8H ELSA Last Admin: 04/21/22 05:31 Dose: 250 mls/hr Labs: Sodium 141 mmol/L (136-145) 04/21/22 04:40 Potassium 3.6 mmol/L (3.5-5.1) 04/21/22 04:40 Chloride 98 mmol/L (98-107) 04/21/22 04:40 Carbon Dioxide 37.0 mmol/L (21.0-32.0) H 04/21/22 04:40 Anion Gap 6 (5-15) 04/21/22 04:40 BUN 19 mg/dL (7-18) H 04/21/22 04:40 Creatinine 0.97 mg/dL (0.70-1.30) 04/21/22 04:40 Est GFR (MDRD) Af Amer 113 mL/min (>60) 04/21/22 04:40 Est GFR (MDRD) Non-Af 94 mL/min (>60) 04/21/22 04:40 BUN/Creatinine Ratio 19.7 RATIO (10-20) 04/21/22 04:40 Glucose 122 mg/dL (74-106) H 04/21/22 04:40 Vancomycin Trough 18.1 ug/mL (5.0-15.0) H 04/21/22 04:40 Microbiology: Microbiology 04/19/22 20:06 Sputum, Tracheal Aspirate Respiratory Culture - Preliminary Appears to be normal respiratory kolton. Further studies to follow. 04/19/22 21:35 Mucosa - Nasopharyngeal Respiratory Panel (PCR) - Final 04/19/22 21:35 Mucosa - Nasopharyngeal Influenza Types A,B Direct FA (TARYN) - Final 04/19/22 18:20 Nasal Secretion SARS-CoV-2 Antigen (Rapid) - Final Weight used for dosin.9 kg Estimated Creatinine Clearance: >120 Goal Trough: 15-20 mcg/mL Pharmacy Plan for Drug Dosing: Vancomycin trough level of 18.1, drawn 7.3 hours post-dose, was 18.1. This is within the target range of 15-20. Will continue dosing at 1500mg q8h, and re- draw a trough in two days. Pharmacy Service will continue to monitor and adjust dosing as required. Follow-Up Labs: Trough Vancomycin Labs to be done on [date and time ordered]: 04/23/22 @[id number]
[2022-04-21 05:55] LABS: Bedside Glucose 119 mg/dL (74-106)
--- NOTE | 2022-04-21 07:13 | PCM.PN.INT ---
Assessment & Plan Assessment/Plan (1) Acute respiratory failure with hypoxia and hypercapnia: PLAN: Plan RECOMMENDATIONS: 1. Agree with empiric antibiotics pending cultures 2. Spontaneous breathing and awakening trials per protocol. Possible extubation later today 3. Continue diuretic therapy 4. Initiate BiPAP with sleep if extubated 5. Monitor electrolytes for repletion IMPRESSIONS: 1. Acute on chronic combined respiratory failure Exact etiology is unclear at this time. Some concern for cor pulmonale, but obesity hypoventilation syndrome would also be a concern. Patient did not have significant congestion noted on chest x-ray, but this is limited secondary to body habitus. We will continue with antibiotics pending cultures. Viral work-up has been unremarkable. Pulmonary hypertension secondary to nocturnal hypoxia secondary to failure to control SYMONE would be a consideration. Spontaneous breathing and awakening trials per protocol. Patient may be able to be extubated later this morning. Patient does not have a significant leukocytosis, but did spike a fever overnight. Anticipate continuing diuresis even if extubated. We will discontinue vancomycin and keep Zosyn until culture negative 2. Mild hepatitis/super morbid obesity/poor history/lack of insurance and PCP Complicates care, management, recovery and prognosis. Unknown social history outside of smokeless tobacco. Patient reportedly is not a drinker. Abdominal ultrasound does show some signs of fatty liver disease. Patient did present with an elevated blood sugar and may need a work-up for diabetes in the future. Social work and case management to help with outpatient issues TIME: 32 minutes critical care time spent addressing patient's respiratory failure, hepatitis, review of all data and collaboration with care team Subjective Subjective Patient did well overnight. No acute issues were reported. Patient currently on a spontaneous breathing trial and tolerating well. Patient did have a mild fever overnight. Patient is not reporting any distress on spontaneous breathing trial. No pain is been reported. Objective Data Objective Data Vital Signs: Vital Signs Temp Pulse Resp BP Pulse Ox O2 Del Method O2 Flow Rate 37.1 C 86 16 172/97 H 95 Mechanical Ventilator 15 04/21/22 07:00 04/21/22 07:00 04/21/22 07:00 04/21/22 07:00 04/21/22 07:00 04/21/22 07:00 04/19/22 17:51 FiO2 30 04/21/22 07:00 Oxygen Flow Rate (L/min) 15 Oxygen Delivery Method Mechanical Ventilator Weight: 117.3 kg Body Mass Index (BMI) 76.5 Intake & Output: Intake and Output for Last 24 Hours 04/19/22 04/20/22 04/21/22 23:59 23:59 23:59 Intake Total 43.13 / 59.63 2645.10 / 2675.60 1138.52 / 1138.52 Output Total 4900 / 5900 3000 / 3000 Balance 43.13 / 59.63 -2254.90 / -3224.40 -1861.48 / -1861.48 Lab / Micro Data Attestation: I reviewed the patient's lab results. Result Diagrams: 04/21/22 04:40 04/21/22 04:40 Labs: Laboratory Results - last 24 hr 04/20/22 03:20: Free T4 1.24 04/20/22 10:08: POC Glucose 92 04/20/22 11:20: MRSA (PCR) Negative 04/20/22 14:46: POC Glucose 103 04/20/22 18:34: POC Glucose 122 H 04/20/22 22:37: POC Glucose 100 04/21/22 04:40: Vancomycin Trough 18.1 H 04/21/22 04:40: WBC 11.0, RBC 4.55 L, Hgb 12.7 L, Hct 42.1, MCV 92.5, MCH 27.9, MCHC 30.2 L, RDW Std Deviation 51.8 H, RDW Coeff of Zulma 15.7 H, Plt Count 237, MPV 10.0, Immature Gran % (Auto) 0.600, Neut % (Auto) 76.1 H, Lymph % (Auto) 12.2 L, [place] % (Auto) 8.8, Eos % (Auto) 1.8, Baso % (Auto) 0.5, Absolute Neuts (auto) 8.3 H, Absolute Lymphs (auto) 1.34, Nucleated RBC % 0 04/21/22 04:40: Sodium 141, Potassium 3.6, Chloride 98, Carbon Dioxide 37.0 H, Anion Gap 6, BUN 19 H, Creatinine 0.97, Estim Creat Clear Calc 95.92, Est GFR (MDRD) Af Amer 113, Est GFR (MDRD) Non-Af 94, BUN/Creatinine Ratio 19.7, Glucose 122 H, Calcium 8.2 L, Total Bilirubin 0.60, AST 34, ALT 65 H, Alkaline Phosphatase 72, Total Protein 6.0 L, Albumin 2.0 L, Globulin 4.0, Albumin/Globulin Ratio 0.5 L 04/21/22 05:34: POC Glucose 119 H Micro: Microbiology 04/19/22 20:06 Sputum, Tracheal Aspirate Respiratory Culture - Preliminary Appears to be normal respiratory kolton. Further studies to follow. 04/19/22 21:35 Mucosa - Nasopharyngeal Respiratory Panel (PCR) - Final 04/19/22 21:35 Mucosa - Nasopharyngeal Influenza Types A,B Direct FA (TARYN) - Final 04/19/22 18:20 Nasal Secretion SARS-CoV-2 Antigen (Rapid) - Final Radiography Diagnostic Testing: Radiology Impression Echocardiogram 04/19/22 20:49 Interpretation Summary The study was technically difficult. Moderate concentric left ventricular hypertrophy. The left ventricular ejection fraction is 55 %. Mild to moderately dilated aortic root. Ordering Physician: Agueda Plasencia Referring Physician: NO PCP Performed By: Kymberly Chaves RCS Abdomen Ultrasound 04/20/22 07:26 IMPRESSION: Increased echogenicity in the liver compatible with fatty infiltration. No other abnormalities identified. Electronically Signed: Geovani Villar MD at 16:03 EST , Physical Exam Const alert, oriented x3 and no apparent distress Constitutional Narrative: Good vent synchrony. RASS 0. Morbidly obese General Appearance: patient mechanically ventilated HEENT normocephalic and head/scalp atraumatic Eyes PERRL, EOMs intact bilaterally and conjunctivae normal Eyes Narrative: Scleral injection noted Neck full ROM Neck Narrative: Unable to assess JVD secondary to body habitus Resp Auscultation: rales and diminished lung sounds; Negative for rhonchi or wheezes Cardio regular rate, regular rhythm, S1 normal heart sound, S2 normal heart sound, no murmurs, no rub and no gallops GI normal to inspection, nondistended, normoactive bowel sounds GI Narrative: Exam limited secondary to body habitus Extremity General Extremity: edema bilateral (4+) lower extremity Skin Skin Narrative: Some erythema of the pannus that appears grossly unchanged compared to previous General Skin Exam: venous stasis Neuro CN's II-XII intact bilaterally, moves all extremities and no focal motor deficits Psych Mood & Affect: flat affect Charges/Coding Procedures Hospitalists Procedures: 01900 Critial Care 1st Hr
[2022-04-21 07:20] LABS: Allen Test Positive; Base Excess 13 mmol/L (-2 to +2); Bicarbonate 36.5 mmol/L (22-26); Blood Gas Specimen Type ART; FI02 30; Mode CPAP/PS; O2 Delivery Device Adult Vent; PEEP 5; PO2 68 mmHG (75-100); PS 5; SITE R Radial; SO2 94 % (95-99); Total Carbon Dioxide 38 mmol/L; pCO2 52.1 mmHg (35-45); pH 7.45 (7.35-7.45)
--- NOTE | 2022-04-21 07:48 | PN.HOSP_ITS ---
Reason for Visit Reason for Visit: Shortness of breath Subjective Subjective Is feeling very well this morning. Was extubated this morning. Thanks us for saving his life. No complaints at this time. Denies any abdominal pain in the area of his cellulitis and erythema does look overall better. Objective Data Objective Data Vital Signs: Vital Signs Temp Pulse Resp BP Pulse Ox O2 Del Method O2 Flow Rate 98.7 F 86 16 172/97 H 95 Mechanical Ventilator 15 04/21/22 07:00 04/21/22 07:00 04/21/22 07:00 04/21/22 07:00 04/21/22 07:00 04/21/22 07:00 04/19/22 17:51 FiO2 30 04/21/22 07:00 Oxygen Flow Rate (L/min) 15 Oxygen Delivery Method Mechanical Ventilator Weight: 117.3 kg Body Mass Index (BMI) 76.5 Intake & Output: Intake and Output for Last 24 Hours 04/19/22 04/20/22 04/21/22 23:59 23:59 23:59 Intake Total 43.13 / 59.63 2645.10 / 2675.60 1138.52 / 1138.52 Output Total 4900 / 5900 3000 / 3000 Balance 43.13 / 59.63 -2254.90 / -3224.40 -1861.48 / -1861.48 Lab / Micro Data Result Diagrams: 04/21/22 04:40 04/21/22 04:40 Labs: Laboratory Results - last 24 hr 04/20/22 10:08: POC Glucose 92 04/20/22 11:20: MRSA (PCR) Negative 04/20/22 14:46: POC Glucose 103 04/20/22 18:34: POC Glucose 122 H 04/20/22 22:37: POC Glucose 100 04/21/22 04:40: Vancomycin Trough 18.1 H 04/21/22 04:40: WBC 11.0, RBC 4.55 L, Hgb 12.7 L, Hct 42.1, MCV 92.5, MCH 27.9, MCHC 30.2 L, RDW Std Deviation 51.8 H, RDW Coeff of Zulma 15.7 H, Plt Count 237, MPV 10.0, Immature Gran % (Auto) 0.600, Neut % (Auto) 76.1 H, Lymph % (Auto) 12.2 L, [place] % (Auto) 8.8, Eos % (Auto) 1.8, Baso % (Auto) 0.5, Absolute Neuts (auto) 8.3 H, Absolute Lymphs (auto) 1.34, Nucleated RBC % 0 04/21/22 04:40: Sodium 141, Potassium 3.6, Chloride 98, Carbon Dioxide 37.0 H, Anion Gap 6, BUN 19 H, Creatinine 0.97, Estim Creat Clear Calc 95.92, Est GFR (MDRD) Af Amer 113, Est GFR (MDRD) Non-Af 94, BUN/Creatinine Ratio 19.7, Glucose 122 H, Calcium 8.2 L, Total Bilirubin 0.60, AST 34, ALT 65 H, Alkaline Phosphatase 72, Total Protein 6.0 L, Albumin 2.0 L, Globulin 4.0, Albumin/Globulin Ratio 0.5 L 04/21/22 05:34: POC Glucose 119 H Micro: Microbiology 04/19/22 20:06 Sputum, Tracheal Aspirate Respiratory Culture - Preliminary Appears to be normal respiratory kolton. Further studies to follow. 04/19/22 21:35 Mucosa - Nasopharyngeal Respiratory Panel (PCR) - Final 04/19/22 21:35 Mucosa - Nasopharyngeal Influenza Types A,B Direct FA (TARYN) - Final 04/19/22 18:20 Nasal Secretion SARS-CoV-2 Antigen (Rapid) - Final ABG Data ABG results: ABG 04/21/22 07:14 Specimen Type ART Sample Site R Radial pH 7.45 Bicarbonate Actual 36.5 H Total CO2 38 Base Excess 13 H O2 Saturation 94 L O2 % 30 ABG pCO2 52.1 H ABG pO2 68 L Raza Test Positive O2 Delivery Device Adult Vent Vent Mode CPAP/PS POC PEEP 5 POC Pressure Suppt 5 Radiography Diagnostic Testing: Radiology Impression Echocardiogram 04/19/22 20:49 Interpretation Summary The study was technically difficult. Moderate concentric left ventricular hypertrophy. The left ventricular ejection fraction is 55 %. Mild to moderately dilated aortic root. Ordering Physician: Agueda Plasencia Referring Physician: NO PCP Performed By: Kymberly Chaves RCS Abdomen Ultrasound 04/20/22 07:26 IMPRESSION: Increased echogenicity in the liver compatible with fatty infiltration. No other abnormalities identified. Electronically Signed: Geovani Villar MD at 16:03 EST , Physical Exam Const alert, oriented x3, no apparent distress and well nourished Constitutional Narrative: Morbidly obese, young middle-aged white male, sitting up in bed watching television, extubated this morning, very pleasant, appears comfortable and nontoxic HEENT head/scalp atraumatic and moist oral mucous membranes HEENT Narrative: Mallampati 3-4 Head and Scalp: normocephalic Resp normal respiratory effort, no retractions, no use of accessory muscles and clear to auscultation bilaterally Resp Narrative: Diminished, breath sounds are distant but no adventitious sounds noted Auscultation: Negative for rales, rhonchi or wheezes Cardio regular rate, regular rhythm, S1 normal heart sound, S2 normal heart sound, no murmurs, no rub, no gallops, no clicks and no JVD GI normal to inspection, nondistended, normoactive bowel sounds, soft to palpation and non-tender GI Narrative: Large protuberant abdomen Extremity Extremity Narrative: Abdomen with significantly less erythema at cheerier pannus with edema that seems to be pitting in nature and tenderness, no open areas noted, chronic bilateral lower extremity edema, no cyanosis or clubbing Skin Skin Narrative: Bilateral lower extremity erythema consistent with chronic venous stasis, pannus as noted above Neuro oriented x3, moves all extremities and no focal motor deficits Speech: speech normal Psych affect normal Psych Narrative: Very pleasant and appropriately interactive Assessment & Plan Assessment/Plan (1) Acute respiratory failure with hypoxia and hypercapnia: (2) Transaminitis: (3) Elevated TSH: (4) Cellulitis: (5) Dilated aortic root: (6) Elevated blood pressure reading: PLAN: Plan Acute hypoxic and hypercapnic respiratory failure -This is SYMONE untreated/cor pulmonale/obesity hypoventilation syndrome -Highly doubt infectious etiology -Suspect baseline hypercapnic respiratory failure however no documentation of this -Required intubation prior to admission with initial pH of 7.08 and a PCO2 of 136 -Chest x-ray demonstrated cardiomegaly with mild vascular congestion and no tanya interstitial edema with bibasilar atelectasis and no focal infiltrate -Respiratory viral panel was unremarkable -COVID and flu were negative -Sputum sample showing only normal oral kolton -Continue empiric antibiotics for now but narrowed to Zosyn only -Continue Lasix 40 mg IV push 3 times daily -When diet initiated will fluid restrict to 1750 and sodium restricted to 2 g daily -Echocardiogram performed and shows an EF of 55% with mildly to moderately dilated aortic root and moderate concentric LVH -Pulmonary/CCM consulted Pannicular cellulitis -Patient had a fever overnight -Pro-Jaison is slightly elevated at 0.37 -Continue Zosyn -Stop vancomycin -Blood cultures are pending Dilated aortic root -4.4 cm on echocardiogram -Will need outpatient follow-up after discharge -Could consider CTA for better examination of aortic root -Maximize blood pressure control Elevated blood pressure -Patient without history of hypertension however postextubation blood pressures are elevated -Coreg 12.5 mg p.o. twice daily added -Monitor for additional needs -Suspect baseline hypertension exists Transaminitis -Etiology unclear -Trending down with normalized AST and ALT is almost normalized at 65 -Suspect may be related to fatty liver disease based on body weight -Right upper quadrant ultrasound shows fatty liver with no other identified abnormalities -We will likely need outpatient GI follow-up to address suspected fatty liver Elevated TSH -TSH was 8.81 -Free T4 was within normal limits -Euthyroid sick syndrome Morbid Obesity -BMI 40.6 -Recommend wgt loss -Complicates treatment, prognosis, and outcomes DVT prophylaxis -Continue Lovenox 40 mg BID Code status -Full Code Charges/Coding Visit Charges Inpatient E&M: 67440 Subs Hosp L2
[2022-04-21] MEDS: Labetalol (Prefilled) 20 MG/4 ML 10 MG IV (09:01)
[2022-04-21] MEDS: 0.9% Saline Lock 10 ML Syringe IV ×3 (09:01→21:55)
[2022-04-21] MEDS: Enoxaparin 40 MG/0.4 ML Syringe SC ×2 (10:27→21:54)
[2022-04-21 10:51] LABS: Bedside Glucose 109 mg/dL (74-106)
[2022-04-21] MEDS: Carvedilol 12.5 MG Tablet PO ×2 (12:57→21:54)
[2022-04-21] MEDS: CHLORHEXIDINE GLUC 2% CLOTH 1 EACH TOWELETTE TOPICAL (14:31)
[2022-04-21 14:46] LABS: Bedside Glucose 124 mg/dL (74-106)
[2022-04-22] VITALS (18 sets, daily range): BP systolic 106–144; BP diastolic 54–86; PULSE 83–99; RESP 12–23; TEMP 37.6–38.3; O2SAT 89–96
[2022-04-22] MEDS: Ipratropium/Albuterol Sulfate 3 ML AMPUL.NEB INHALATION ×4 (01:36→19:17)
[2022-04-22] MEDS: Furosemide 40 MG/4 ML Vial IV ×3 (05:25→22:44)
[2022-04-22] MEDS: Nystatin Powder 15gm Bottle 1 APPLIC TOPICAL ×2 (05:26→22:43)
[2022-04-22] MEDS: Acetaminophen 325 MG Tablet 650 MG PO (05:33)
[2022-04-22 05:35] LABS: Absolute Lymphocyte Count 1.65 X10^3/uL (0.83-4.51); Absolute Neutrophil Count 7.6 X10^3/uL (2.0-7.7); Basophil# 0.04 X10^3/uL; Basophil% 0.4 % (0-1); Eosinophil# 0.29 X10^3/uL; Eosinophils% 2.7 % (0-5); Hemoglobin 12.5 g/dL (13.0-16.5); Lymphocyte # 1.65 X10^3/ul (0.83-4.51); Lymphocyte % 15.1 % (19-41); Mean Corp Hgb Conc 30.5 g/dL (32-36); Mean Corpuscular Hgb 28.2 pg (27.0-32.0); Mean Corpuscular Volume 92.6 fL (80-94); Mean Platelet Vol. 9.7 fl (6.2-12.0); Monocyte% 11.9 % (0-10); NRBC Flagged by Analyzer 0 % (0-5); Neutrophil # 7.57 X10^3/uL (2.7-7.7); Neutrophil % 69.4 % (47-70); Platelet Count 213 K/mm3 (150-450); RBC Distribution Width CV 15.3 % (11.6-14.6); RBC Distribution Width SD 51.1 fl (35.1-43.9); Red Blood Count 4.43 M/mm3 (4.6-6.2); White Blood Count 10.9 K/mm3 (4.4-11.0)
[2022-04-22 05:52] LABS: ALB/GLOB Ratio 0.5 RATIO (0.9-2.4); AST(SGOT) 21 U/L (15-37); Alanine Aminotransfer ALT/SGPT 45 U/L (16-61); Alkaline Phosphatase 63 U/L (45-117); Anion Gap 6 (5-15); BUN 18 mg/dL (7-18); BUN/Creat Ratio 21.4 RATIO (10-20); Calcium,Total 8.3 mg/dL (8.5-10.1); Chloride 98 mmol/L (98-107); Creatinine, Serum 0.84 mg/dL (0.70-1.30); EST Glomerular Filtration Rate 110 mL/min (>60); Est Glom Filt Rate - Afr Amer 133 mL/min (>60); Estimated Creatinine Clearance 110.76 ml/min; Glucose 104 mg/dL (74-106); Phosphorus 3.7 mg/dL (2.5-4.9); Potassium 3.5 mmol/L (3.5-5.1); Sodium Level 140 mmol/L (136-145)
--- NOTE | 2022-04-22 06:14 | PCM.PN.INT ---
Assessment & Plan Assessment/Plan (1) Acute respiratory failure with hypoxia and hypercapnia: PLAN: Plan RECOMMENDATIONS: 1. Continue diuresis as tolerated by hemodynamics and renal function. 2. Continue antibiotics for an additional 24 hours. If cultures remain negative tomorrow, antibiotics can be discontinued. 3. Wean supplemental oxygen to maintain saturations 88 to 92%. 4. Continue AVAPS therapy with naps and nightly. 5. Encourage incentive spirometer use and mobilize patient as tolerated. 6. Outpatient PSG and PCP follow-up is recommended. IMPRESSIONS: 1. Acute on chronic combined respiratory failure Most likely secondary to decompensated heart failure with preserved ejection fraction coupled with alveolar hypoventilation secondary to obesity and probable sleep apnea. Infectious work-up has been unrevealing thus far. However, I would continue antimicrobials for an additional 24 hours. If cultures remain negative tomorrow, antibiotics will be discontinued. In the interim, recommend continuing diuretics as tolerated by hemodynamics and renal function. Continue to wean supplemental oxygen to maintain saturations 88 to 92%. The patient needs to be continued on AVAPS therapy with naps and nightly. Encourage incentive spirometer use and mobilize patient as tolerated. 2. Morbid obesity/high risk for sleep apnea/transaminitis likely secondary to fatty liver disease Complicates care, management, recovery and prognosis. Continue supportive measures as noted above. I strongly recommended the patient establish care with a primary care provider after discharge from the hospital. Continue PT/OT. This note was generated with [employer] dictation software. It may contain incorrect words, spelling, and punctuation that were not noted in checking the note before signing. Subjective Subjective The patient was seen and examined at the bedside this morning. Events from the last 24 hours have been reviewed. The patient is currently afebrile, hemodynamically stable and maintaining appropriate oxygen saturations on 6 L/min via nasal cannula. The patient has been tolerant of nocturnal AVAPS therapy. The patient is currently documented to be overall net -7.4 L for the hospitalization. Serum bicarbonate remains elevated at 36. Creatinine is within normal limits. The patient did report that it was previously recommended to him that he have an outpatient sleep study. However, he has never undergone a formal PSG. Therefore, he has never been prescribed any form of nocturnal Pap therapy. The patient is also in need of establishing care with a PCP. Objective Data Objective Data The patient's most recent lab work, culture data and imaging studies have all been personally reviewed. Surface echocardiogram demonstrated normal LV size with moderate concentric LVH and an ejection fraction of 55%. Infectious work-up has been unrevealing to date. Vital Signs: Vital Signs Temp Pulse Resp BP Pulse Ox O2 Del Method O2 Flow Rate 100.5 F H 97 20 H 123/71 H 89 Bi-pap 6 04/22/22 06:00 04/22/22 06:00 04/22/22 06:00 04/22/22 06:00 04/22/22 06:00 04/22/22 06:00 04/22/22 04:48 FiO2 45 04/22/22 06:00 Oxygen Flow Rate (L/min) 6 Oxygen Delivery Method Bi-pap Weight: 260 lb 5.855 oz Body Mass Index (BMI) 76.5 Intake & Output: Intake and Output for Last 24 Hours 04/20/22 04/21/22 04/22/22 23:59 23:59 23:59 Intake Total 2645.10 / 2675.60 2618.52 / 2618.52 290 / 290 Output Total 4900 / 5900 7500 / 7500 600 / 600 Balance -2254.90 / -3224.40 -4881.48 / -4881.48 -310 / -310 Lab / Micro Data Attestation: I reviewed the patient's lab results. Result Diagrams: 04/22/22 05:30 04/22/22 05:30 Labs: Laboratory Results - last 24 hr 04/21/22 10:23: POC Glucose 109 H 04/21/22 14:22: POC Glucose 124 H 04/22/22 05:30: WBC 10.9, RBC 4.43 L, Hgb 12.5 L, Hct 41.0, MCV 92.6, MCH 28.2, MCHC 30.5 L, RDW Std Deviation 51.1 H, RDW Coeff of Zulma 15.3 H, Plt Count 213, MPV 9.7, Immature Gran % (Auto) 0.500, Neut % (Auto) 69.4, Lymph % (Auto) 15.1 L, [place] % (Auto) 11.9 H, Eos % (Auto) 2.7, Baso % (Auto) 0.4, Absolute Neuts (auto) 7.6, Absolute Lymphs (auto) 1.65, Nucleated RBC % 0 04/22/22 05:30: Sodium 140, Potassium 3.5, Chloride 98, Carbon Dioxide 36.0 H, Anion Gap 6, BUN 18, Creatinine 0.84, Estim Creat Clear Calc 110.76, Est GFR (MDRD) Af Amer 133, Est GFR (MDRD) Non-Af 110, BUN/Creatinine Ratio 21.4 H, Glucose 104, Calcium 8.3 L, Phosphorus 3.7, Magnesium 2.0, Total Bilirubin 0.70, AST 21, ALT 45, Alkaline Phosphatase 63, Total Protein 6.0 L, Albumin 2.0 L, Globulin 4.0, Albumin/Globulin Ratio 0.5 L Micro: Microbiology 04/19/22 20:06 Sputum, Tracheal Aspirate Gram Stain - Final 04/19/22 20:06 Sputum, Tracheal Aspirate Respiratory Culture - Final Mixed normal respiratory kolton. No Streptococcus pneumoniae, beta-hemolytic Streptococcus or Staphylococcus aureus isolated. 04/20/22 05:15 Blood Culture (Wb) - Chest Bacteria Detection (PCR) - Final Staphylococcus epidermidis 04/20/22 05:15 Blood Culture (Wb) - Chest Blood Culture - Preliminary 04/19/22 21:35 Mucosa - Nasopharyngeal Respiratory Panel (PCR) - Final 04/19/22 21:35 Mucosa - Nasopharyngeal Influenza Types A,B Direct FA (TARYN) - Final 04/19/22 18:20 Nasal Secretion SARS-CoV-2 Antigen (Rapid) - Final ABG Data ABG results: ABG 04/21/22 07:14 Specimen Type ART Sample Site R Radial pH 7.45 Bicarbonate Actual 36.5 H Total CO2 38 Base Excess 13 H O2 Saturation 94 L O2 % 30 ABG pCO2 52.1 H ABG pO2 68 L Raza Test Positive O2 Delivery Device Adult Vent Vent Mode CPAP/PS POC PEEP 5 POC Pressure Suppt 5 Physical Exam Const alert and no apparent distress Constitutional Narrative: Morbidly obese General Appearance: cooperative HEENT normocephalic and head/scalp atraumatic Eyes PERRL, EOMs intact bilaterally and conjunctivae normal Neck supple General: trachea midline Chest inspection of chest normal Resp normal respiratory effort Auscultation: diminished lung sounds; Negative for rales, rhonchi or wheezes Cardio regular rate and regular rhythm GI normal to inspection, nondistended, normoactive bowel sounds Extremity General Extremity: edema bilateral lower extremity Skin General Skin Exam: venous stasis and dermatitis Neuro CN's II-XII intact bilaterally and no focal motor deficits Psych cooperative and affect normal Charges/Coding Visit Charges Inpatient E&M: 04637 Subs Hosp L3
--- NOTE | 2022-04-22 07:40 | RAD_ITS ---
STUDY: X-RAY CHEST REASON FOR EXAM: Male, 36 years old. Fever and cough TECHNIQUE: Single AP portable view of the chest. COMPARISON: 04/19/2022 FINDINGS: EKG leads overlie the chest. Stable appearance of the right-sided PICC line. Since the previous study, the patient has been extubated and NG tube removed. Lungs are expanded, near complete resolution of previously noted patchy opacifications in both lung rogers. Continued follow-up recommended to ensure complete resolution. Stable focal eventration of the right hemidiaphragm Stable cardiomegaly which may be positional. Normal mediastinum and ada. Normal visualized pulmonary arteries. Normal visualized aortic arch and descending thoracic aorta. Normal visualized thoracic spine. Normal visualized ribs, clavicles, and shoulders. There is no demonstrated abnormality of the visualized soft tissue structures of the upper abdomen. RAD/Chest 1 View (Portable) IMPRESSION: Near complete resolution of previously noted airspace opacifications in both lung rogers. Continued follow-up recommended to ensure complete resolution. Since previous study patient has been extubated and NG tube removed Electronically Signed: Karson Zhu MD at 11:22 EST ,
[2022-04-22] MEDS: CHLORHEXIDINE GLUC 2% CLOTH 1 EACH TOWELETTE TOPICAL (08:46)
[2022-04-22] MEDS: Carvedilol 12.5 MG Tablet PO ×2 (08:46→22:43)
[2022-04-22] MEDS: Enoxaparin 40 MG/0.4 ML Syringe SC ×2 (08:46→22:43)
[2022-04-22] MEDS: Potassium Chloride Oral Tablet 20 MEQ 40 MEQ PO (08:52)
--- NOTE | 2022-04-22 09:45 | CASEMGMT ---
Addendum entered by Ruy Riley 04/22/22 10:22: AMEE GARCIA back to room. Pt girlfriend, Nelida, is now @ bedside, as well as Deana. Discussed possible need of O2 @ d/c. They state no preference of DME co, should he qualify for O2 and made aware [employer] is affiliated w/[facility]. They choose [employer]. Pt does not have a pulse ox. Questions answered. Addendum to below: Pt did say he is able to bath and dress himself, but Nelida assists him w/donning socks and shoes. Original Note: RN?CM?HIDE DYER?CM?to room to meet with patient for initial transition planning/care coordination?assessment.?RN?CM?introduced self and role at [facility].? Pt voices understanding and consents to?assessment?at this time.? Pt resting in bed in no distress at this time.?Deana, pt's girlfriend's dtr, @ bedside and pt agreeable to her being present during assessment. Pt is A/O at this time and answers all questions appropriately.?? Care providers, pharmacy, and demographics verified/updated at this time. PCP: No PCP. Provided w/list of local PCP's Specialists: none Preferred Pharmacy:[facility] Retail Insurance: [facility] Prescription Benefit:?Yes Living Will/HPOA:?Pt does not currently have LW/HCPOA and is interested in completing. GERMAN, Jolene, made aware. Pt states he would like either Deana or his uncle to be POA. LNOK: No children and parents are . Pt has one sister, whom he states he would not want her involved in making medical decisions for him Living Arrangements: Lives w/GF, Nelida, in condo w/basement. 1-2 steps to enter home. Pt states he rarely has to go to the basement. Pt is independent w/ADL's and IADL's. He does most of the cooking and pt and Nelida share other home mgmt tasks. Transportation:?Pt does not drive. He is in the process of getting his permit. Either Nelida or Deana provide transportation. DME: ? Denies using any DME. Deana states they do have a lot of DME available, if needed: walker, W/C, hosp bed, shower chair, toilet siderails. There are grab bars in the bathroom. Pt states when he was discharged from [facility] about 1 1/2 hrs ago, he was told he was supposed to wear a PAP. He states he did not end up following through with this, as he didn't think he needed it, and also didn't think his insurance would pay for it. (He had Adarsh YUDELKA at that time). He did not look into it and he did not have any type of sleep-study done. He states he would be willing to do what I have to do now. HHC/SNF: No hx of either. Pt wishes to return home and states has no concerns with going home at time of discharge.? CM?to follow for home oxygen needs and any further discharge planning/needs.? Pt and Deana voice no further concerns/needs at this time.? Advised them to ask for?CM?if any further questions/concerns/needs arise.? Voices understanding. PLAN:??Home. Follow for any oxygen needs @ d/c. Follow for therapy recommendations. Fady BSN?RN?CM
--- NOTE | 2022-04-22 10:00 | PCM.RX.CS ---
Consult Pharmacy has been consulted to manage selected antiobiotic: Vancomycin Type of Consult: New start Prior Doses of Antibiotics Received/Current Regimen: Medications Vancomycin HCl 2,000 mg/ (Sodium Chloride) 540 mls @ 250 mls/hr IV X1 ONE Stop: 04/22/22 12:09 Last Admin: 04/22/22 09:55 Dose: 250 mls/hr Labs: Sodium 140 mmol/L (136-145) 04/22/22 05:30 Potassium 3.5 mmol/L (3.5-5.1) 04/22/22 05:30 Chloride 98 mmol/L (98-107) 04/22/22 05:30 Carbon Dioxide 36.0 mmol/L (21.0-32.0) H 04/22/22 05:30 Anion Gap 6 (5-15) 04/22/22 05:30 BUN 18 mg/dL (7-18) 04/22/22 05:30 Creatinine 0.84 mg/dL (0.70-1.30) 04/22/22 05:30 Est GFR (MDRD) Af Amer 133 mL/min (>60) 04/22/22 05:30 Est GFR (MDRD) Non-Af 110 mL/min (>60) 04/22/22 05:30 BUN/Creatinine Ratio 21.4 RATIO (10-20) H 04/22/22 05:30 Glucose 104 mg/dL (74-106) 04/22/22 05:30 Vancomycin Trough 18.1 ug/mL (5.0-15.0) H 04/21/22 04:40 Microbiology: Microbiology 04/20/22 05:15 Blood Culture (Wb) - Chest Bacteria Detection (PCR) - Final Staphylococcus epidermidis 04/20/22 05:15 Blood Culture (Wb) - Chest Blood Culture - Preliminary Coag Negative Staph 04/19/22 20:06 Sputum, Tracheal Aspirate Gram Stain - Final 04/19/22 20:06 Sputum, Tracheal Aspirate Respiratory Culture - Final Mixed normal respiratory kolton. No Streptococcus pneumoniae, beta-hemolytic Streptococcus or Staphylococcus aureus isolated. 04/19/22 21:35 Mucosa - Nasopharyngeal Respiratory Panel (PCR) - Final 04/19/22 21:35 Mucosa - Nasopharyngeal Influenza Types A,B Direct FA (TARYN) - Final 04/19/22 18:20 Nasal Secretion SARS-CoV-2 Antigen (Rapid) - Final Weight used for dosin kg Estimated Creatinine Clearance: > 100 Goal Trough: 15-20 mcg/mL Pharmacy Plan for Drug Dosing: Vancomycin 2000mg IV x1 followed by 1500mg IV q8h per policy with trough prior to 4th dose. Patient had previously been maintained on this regimen this admission with first trough level in goal range. Pharmacy Service will continue to monitor and adjust dosing as required. Follow-Up Labs: Trough Vancomycin - 04/23 @ 0930
--- NOTE | 2022-04-22 10:59 | CASEMGMT ---
Social Work Consult: No PCP, insurance questions, advanced directives. Referral source: Nursing and RN CM. This social sciences department chair met with patient in room. Introduced self and social sciences department chair role. Patient agreeable to speak with this social sciences department chair. Patient girlfriend, Nelida and Nelida's daughter, Deana present. Patient provided verbal permission for this social sciences department chair to speak openly with Nelida and Deana present. This social sciences department chair inquired about primary care doctor (PCP) for patient, patient confirms to have no PCP. Patient agreeable to this social sciences department chair providing patient with list of in-network PCP's that are local to patient geographical region. Patient reports plan to attempt to get in with Dr. Alexis Peralta, Nelida has already reached out to Dr. Peralta's office to start paperwork. This social sciences department chair able to confirm that Dr. Peralta is in-network with patient insurance. Patient reports to have no insurance questions, was more in regards to PCP and this social sciences department chair was able to answer questions. This social sciences department chair broached conversation of advanced directives. Patient confirms to want documents completed but not at this time and would like to speak with a family member prior to having documents completed. Patient request for social work to follow up later today or tomorrow. Social Work to continue to follow. Hema GALVEZ, LOYDA
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
--- NOTE | 2022-04-22 14:56 | CASEMGMT ---
SW completed a Healthcare Power of Pneumatic Press Hand with patient. Copies were made and given to patient along with original. SW also placed a copy in patient's chart. Patient named his girlfriend, Nelida as his Healthcare Power of Pneumatic Press Hand. Zhane GONZALEZ
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
[2022-04-23] VITALS (12 sets, daily range): BP systolic 118–143; BP diastolic 68–80; PULSE 76–99; RESP 12–22; TEMP 37.7–38.4; O2SAT 92–96
[2022-04-23] MEDS: Ipratropium/Albuterol Sulfate 3 ML AMPUL.NEB INHALATION ×4 (01:43→19:37)
[2022-04-23 04:54] LABS: Absolute Lymphocyte Count 1.72 X10^3/uL (0.83-4.51); Absolute Neutrophil Count 6.6 X10^3/uL (2.0-7.7); Basophil# 0.03 X10^3/uL; Basophil% 0.3 % (0-1); Eosinophil# 0.32 X10^3/uL; Eosinophils% 3.2 % (0-5); Hematocrit 41.1 % (40-54); Hemoglobin 12.6 g/dL (13.0-16.5); Lymphocyte # 1.72 X10^3/ul (0.83-4.51); Lymphocyte % 17.3 % (19-41); Mean Corp Hgb Conc 30.7 g/dL (32-36); Mean Corpuscular Hgb 28.4 pg (27.0-32.0); Mean Corpuscular Volume 92.8 fL (80-94); Monocyte# 1.27 X10^3/uL; Monocyte% 12.8 % (0-10); NRBC Flagged by Analyzer 0 % (0-5); Neutrophil # 6.58 X10^3/uL (2.7-7.7); Platelet Count 190 K/mm3 (150-450); RBC Distribution Width CV 14.7 % (11.6-14.6); RBC Distribution Width SD 49.6 fl (35.1-43.9); Red Blood Count 4.43 M/mm3 (4.6-6.2)
[2022-04-23 05:11] LABS: Magnesium 2.3 mg/dL (1.6-2.6)
--- NOTE | 2022-04-23 05:58 | PN.CC_ITS ---
Assessment & Plan Assessment/Plan (1) Acute respiratory failure with hypoxia and hypercapnia: PLAN: Plan RECOMMENDATIONS: 1. Continue diuresis as tolerated by hemodynamics and renal function. 2. Antibiotics can be discontinued from my perspective. 3. Wean supplemental oxygen to maintain saturations 88 to 92%. 4. Continue AVAPS therapy with naps and nightly. 5. Encourage incentive spirometer use and mobilize patient as tolerated. 6. Outpatient PSG and PCP follow-up is recommended. IMPRESSIONS: 1. Acute on chronic combined respiratory failure Most likely secondary to decompensated heart failure with preserved ejection f raction coupled with alveolar hypoventilation secondary to obesity and probable sleep apnea. Infectious work-up has been unrevealing thus far. Antibiotics can be discontinued from my perspective. Recommend continuing diuretics as tolerated by hemodynamics and renal function. Continue to wean supplemental oxygen to maintain saturations 88 to 92%. The patient needs to be continued on AVAPS therapy with naps and nightly. Encourage incentive spirometer use and mobilize patient as tolerated. 2. Morbid obesity/high risk for sleep apnea/transaminitis likely secondary to fatty liver disease Complicates care, management, recovery and prognosis. Continue supportive me asures as noted above. I strongly recommended the patient establish care with a primary care provider after discharge from the hospital. Continue PT/OT. This note was generated with [employer] dictation software. It may contain incorrect words, spelling, and punctuation that were not noted in checking the note before signing. Subjective Subjective The patient was seen and examined at the bedside this morning. Events from the last 24 hours have been reviewed. The patient is currently afebrile, hemodynamically stable and maintaining appropriate oxygen saturations on 3 L/min via nasal cannula. The patient is documented to be overall net -10 L for the hospitalization. The patient was tolerant of AVAPS therapy overnight. Objective Data Objective Data The patient's most recent lab work, culture data and imaging studies have all been personally reviewed. Surface echocardiogram demonstrated normal LV size with moderate concentric LVH and an ejection fraction of 55%. Infectious work- up has been unrevealing to date. Vital Signs: Vital Signs Temp Pulse Resp BP Pulse Ox O2 Del Method O2 Flow Rate 101 F H 76 19 H 122/86 H 94 Bi-pap 6 04/22/22 20:03 04/23/22 04:46 04/23/22 04:46 04/22/22 20:03 04/23/22 04:46 04/23/22 02:00 04/22/22 20:03 FiO2 45 04/23/22 04:46 Oxygen Flow Rate (L/min) 6 Oxygen Delivery Method Bi-pap Weight: 260 lb 5.855 oz Body Mass Index (BMI) 76.5 Intake & Output: Intake and Output for Last 24 Hours 04/21/22 04/22/22 04/23/22 23:59 23:59 23:59 Intake Total 2618.52 / 2618.52 930 / 930 Output Total 7500 / 7500 3800 / 3800 Balance -4881.48 / -4881.48 -2870 / -2870 Lab / Micro Data Attestation: I reviewed the patient's lab results. Result Diagrams: 04/23/22 04:40 04/22/22 05:30 Labs: Laboratory Results - last 24 hr 04/23/22 04:40: WBC 10.0, RBC 4.43 L, Hgb 12.6 L, Hct 41.1, MCV 92.8, MCH 28.4, MCHC 30.7 L, RDW Std Deviation 49.6 H, RDW Coeff of Zulma 14.7 H, Plt Count 190, MPV 10.0, Immature Gran % (Auto) 0.400, Neut % (Auto) 66.0, Lymph % (Auto) 17.3 L, [place] % (Auto) 12.8 H, Eos % (Auto) 3.2, Baso % (Auto) 0.3, Absolute Neuts (auto) 6.6, Absolute Lymphs (auto) 1.72, Nucleated RBC % 0 04/23/22 04:40: Magnesium 2.3 Micro: Microbiology 04/20/22 05:05 Blood Culture (Wb) - Right Hand Blood Culture - Preliminary No growth in 48 hours. 04/20/22 05:15 Blood Culture (Wb) - Chest Bacteria Detection (PCR) - Final Staphylococcus epidermidis 04/20/22 05:15 Blood Culture (Wb) - Chest Blood Culture - Preliminary No growth in 48 hours. 04/19/22 20:06 Sputum, Tracheal Aspirate Gram Stain - Final 04/19/22 20:06 Sputum, Tracheal Aspirate Respiratory Culture - Final Mixed normal respiratory kolton. No Streptococcus pneumoniae, beta-hemolytic Streptococcus or Staphylococcus aureus isolated. 04/19/22 21:35 Mucosa - Nasopharyngeal Respiratory Panel (PCR) - Final 04/19/22 21:35 Mucosa - Nasopharyngeal Influenza Types A,B Direct FA (TARYN) - Final 04/19/22 18:20 Nasal Secretion SARS-CoV-2 Antigen (Rapid) - Final ABG Data ABG results: ABG 04/21/22 07:14 Specimen Type ART Sample Site R Radial pH 7.45 Bicarbonate Actual 36.5 H Total CO2 38 Base Excess 13 H O2 Saturation 94 L O2 % 30 ABG pCO2 52.1 H ABG pO2 68 L Raza Test Positive O2 Delivery Device Adult Vent Vent Mode CPAP/PS POC PEEP 5 POC Pressure Suppt 5 Radiography Diagnostic Testing: Radiology Impression Chest X-Ray 04/22/22 07:40 IMPRESSION: Near complete resolution of previously noted airspace opacifications in both lung rogers. Continued follow-up recommended to ensure complete resolution. Since previous study patient has been extubated and NG tube removed Electronically Signed: Karsno Zhu MD at 11:22 EST , Physical Exam Const alert and no apparent distress Constitutional Narrative: Morbidly obese General Appearance: cooperative HEENT normocephalic and head/scalp atraumatic Eyes PERRL, EOMs intact bilaterally and conjunctivae normal Neck supple General: trachea midline Chest inspection of chest normal Resp normal respiratory effort Auscultation: diminished lung sounds; Negative for rales, rhonchi or wheezes Cardio regular rate and regular rhythm GI normal to inspection, nondistended, normoactive bowel sounds Extremity General Extremity: edema bilateral lower extremity Skin General Skin Exam: venous stasis and dermatitis Neuro CN's II-XII intact bilaterally and no focal motor deficits Psych cooperative and affect normal Charges/Coding Visit Charges Inpatient E&M: 50718 Subs Hosp L2
[2022-04-23] MEDS: Furosemide 40 MG/4 ML Vial IV ×3 (06:19→21:24)
[2022-04-23] MEDS: Nystatin Powder 15gm Bottle 1 APPLIC TOPICAL ×2 (06:19→21:17)
[2022-04-23] MEDS: Carvedilol 12.5 MG Tablet PO ×2 (08:53→21:24)
[2022-04-23] MEDS: Enoxaparin 40 MG/0.4 ML Syringe SC ×2 (08:53→21:27)
--- NOTE | 2022-04-23 10:15 | PCM.PN.ID ---
Physical Exam Narrative Feeling ok, denies any fever or chills, no cough, no abd pain, no n/v/d. Const alert and no apparent distress Resp clear to auscultation bilaterally Auscultation: diminished lung sounds Cardio regular rate and regular rhythm GI soft to palpation, non-tender and non-distended Extremity General Extremity: edema Skin no rashes or lesions noted ID ID: Route of nutrition/ use of supplements: [] Nutritional Intake: [] IV Site: [] Butterfield Catheter: [] Assessment & Plan Assessment/Plan (1) Acute respiratory failure with hypoxia and hypercapnia: PLAN: Bcx neg. Still low grade fever here. MRSA pcr neg. Cont zosyn for now. Pt says temp at baseline is elevated. Will follow
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
--- NOTE | 2022-04-23 15:09 | PCM.PN.HOSP ---
Reason for Visit Reason for Visit: Shortness of breath Subjective Subjective Patient states he is feeling much better overall. Down 11.5 L for his hospitalization. Oxygen has been weaned from 6 L to 3.5 L. Objective Data Objective Data Vital Signs: Vital Signs Temp Pulse Resp BP Pulse Ox O2 Del Method O2 Flow Rate 99.8 F H 84 19 H 134/69 H 93 Nasal Cannula 3.5 04/23/22 14:00 04/23/22 14:00 04/23/22 14:00 04/23/22 14:00 04/23/22 14:00 04/23/22 14:47 04/23/22 14:47 FiO2 45 04/23/22 04:46 Oxygen Flow Rate (L/min) 3.5 Oxygen Delivery Method Nasal Cannula Weight: 118.1 kg Body Mass Index (BMI) 76.5 Intake & Output: Intake and Output for Last 24 Hours 04/21/22 04/22/22 04/23/22 23:59 23:59 23:59 Intake Total 2618.52 / 2618.52 930 / 930 100 / 100 Output Total 7500 / 7500 3800 / 3800 2900 / 2900 Balance -4881.48 / -4881.48 -2870 / -2870 -2800 / -2800 Lab / Micro Data Result Diagrams: 04/23/22 04:40 04/22/22 05:30 Labs: Laboratory Results - last 24 hr 04/23/22 04:40: WBC 10.0, RBC 4.43 L, Hgb 12.6 L, Hct 41.1, MCV 92.8, MCH 28.4, MCHC 30.7 L, RDW Std Deviation 49.6 H, RDW Coeff of Zulma 14.7 H, Plt Count 190, MPV 10.0, Immature Gran % (Auto) 0.400, Neut % (Auto) 66.0, Lymph % (Auto) 17.3 L, [place] % (Auto) 12.8 H, Eos % (Auto) 3.2, Baso % (Auto) 0.3, Absolute Neuts (auto) 6.6, Absolute Lymphs (auto) 1.72, Nucleated RBC % 0 04/23/22 04:40: Magnesium 2.3 Micro: Microbiology 04/20/22 05:15 Blood Culture (Wb) - Chest Bacteria Detection (PCR) - Final Staphylococcus epidermidis 04/20/22 05:15 Blood Culture (Wb) - Chest Blood Culture - Preliminary Coag Negative Staph 04/20/22 05:05 Blood Culture (Wb) - Right Hand Blood Culture - Preliminary No growth in 48 hours. 04/19/22 20:06 Sputum, Tracheal Aspirate Gram Stain - Final 04/19/22 20:06 Sputum, Tracheal Aspirate Respiratory Culture - Final Mixed normal respiratory kolton. No Streptococcus pneumoniae, beta-hemolytic Streptococcus or Staphylococcus aureus isolated. 04/19/22 21:35 Mucosa - Nasopharyngeal Respiratory Panel (PCR) - Final 04/19/22 21:35 Mucosa - Nasopharyngeal Influenza Types A,B Direct FA (TARYN) - Final 04/19/22 18:20 Nasal Secretion SARS-CoV-2 Antigen (Rapid) - Final Physical Exam Const alert, oriented x3, no apparent distress and well nourished Constitutional Narrative: Morbidly obese, young middle-aged white male, sitting up in a chair at the bedside, talking on his cell phone, eating breakfast, very pleasant, appears comfortable and nontoxic HEENT head/scalp atraumatic and moist oral mucous membranes HEENT Narrative: Mallampati 4, no thrush Head and Scalp: normocephalic Resp normal respiratory effort, no retractions, no use of accessory muscles and clear to auscultation bilaterally Resp Narrative: Diminished, breath sounds are distant but no adventitious sounds noted-exam is limited by body habitus Auscultation: Negative for rales, rhonchi or wheezes Cardio regular rate, regular rhythm, S1 normal heart sound, S2 normal heart sound, no murmurs, no rub, no gallops, no clicks and no JVD GI normal to inspection, nondistended, normoactive bowel sounds, soft to palpation and non-tender GI Narrative: Large protuberant abdomen Extremity Extremity Narrative: Still with pitting edema however starting to have some wrinkling in his skin related to ongoing diuresis Neuro oriented x3, moves all extremities and no focal motor deficits Neuro Narrative: Significant weakness Speech: speech normal Psych affect normal Psych Narrative: Very pleasant and appropriately interactive Assessment & Plan Assessment/Plan (1) Acute respiratory failure with hypoxia and hypercapnia: (2) Transaminitis: (3) Elevated TSH: (4) Cellulitis: (5) Dilated aortic root: (6) Elevated blood pressure reading: PLAN: Plan Acute hypoxic and hypercapnic respiratory failure -This is SYMONE untreated/cor pulmonale/obesity hypoventilation syndrome -Highly doubt infectious etiology as infectious work-up has been negative thus far -Suspect baseline hypercapnic respiratory failure however no documentation of this -Required intubation prior to admission with initial pH of 7.08 and a PCO2 of 136 -Chest x-ray demonstrated cardiomegaly with mild vascular congestion and no tanya interstitial edema with bibasilar atelectasis and no focal infiltrate -Continue Lasix 40 mg IV push 3 times daily -Fluid restricted diet to 1750 daily -Sodium restricted diet to 2 g daily -Patient down 11.513 L for his hospital stay -Echocardiogram performed and shows an EF of 55% with mildly to moderately dilated aortic root and moderate concentric LVH -Pulmonary/CCM following-appreciate input -Dietitian has been consulted and is following for recommendations with a low sodium diet -Will need trilogy at discharge Pannicular cellulitis -No further fevers -Continue Zosyn -Cultures all remain negative -ID is following Dilated aortic root -4.4 cm on echocardiogram -Will need outpatient follow-up after discharge -Could consider CTA for better examination of aortic root as an outpatient -Maximize blood pressure control--> control has been good at this time Hypertension -Patient without history of hypertension however postextubation blood pressures are elevated -Continue Coreg 12.5 mg p.o. twice daily--> he will need this prescription at discharge -May need additional medication however will monitor with ongoing diuresis as he will likely go home with oral Lasix -Blood pressure control is better Hepatosteatosis -GI referral at discharge Elevated TSH -TSH was 8.81 -Free T4 was within normal limits -Euthyroid sick syndrome Morbid Obesity -BMI 40.6 -Recommend wgt loss -Complicates treatment, prognosis, and outcomes DVT prophylaxis -Continue Lovenox 40 mg BID Code status -Full Code Charges/Coding Visit Charges Inpatient E&M: 08455 Subs Hosp L2
--- NOTE | 2022-04-23 16:54 | CASEMGMT ---
Addendum entered by Ruy Riley 04/23/22 17:13: Pt does not have PCP. AMEE GARCIA to room. Pt and Nelida made aware HHC unable to see pt until he is established w/a PCP, who would then follow for HHC orders. They voice understanding. Nelida states they are in the process of getting paperwork to Dr Peralta's office so they can get an appt scheduled for pt to get established as a new patient. Original Note: AMEE GARCIA NOTE: Per Dr Hernandez, pt may qualify for trilogy unit. AMEE GARCIA to room. Pt sitting up in chair. Sig other, Nelida, @ bedside. Discussed trilogy and questions answered. They state [employer] for DME co. Call placed to April @ [employer] re: trilogy unit/referral. She states she will review information. Also discussed HHC w/pt and Nelida. Pt states he would like [facility]. A list of [facility] providers including quality and resource use data and consistent with the patient?s preferred geographic region, medical needs, and insurance network were provided from the [facility] Guide. 1st choice is [facility], 2nd is [facility], and 3rd is [facility]. Referrals sent to these 3 [facility] agencies via [facility]. Fady GARCIA RN, CM
[2022-04-23] MEDS: Acetaminophen 325 MG Tablet 650 MG PO (21:47)
[2022-04-24] VITALS (12 sets, daily range): BP systolic 128–135; BP diastolic 65–82; PULSE 71–114; RESP 10–32; TEMP 37.2–38.3; O2SAT 92–97; BMI 73.7
[2022-04-24] MEDS: Ipratropium/Albuterol Sulfate 3 ML AMPUL.NEB INHALATION ×4 (01:35→18:48)
[2022-04-24] MEDS: Acetaminophen 325 MG Tablet 650 MG PO ×3 (04:34→18:01)
[2022-04-24 04:58] LABS: Anion Gap 4 (5-15); BUN 22 mg/dL (7-18); BUN/Creat Ratio 23.7 RATIO (10-20); Calcium,Total 8.9 mg/dL (8.5-10.1); Chloride 95 mmol/L (98-107); Creatinine, Serum 0.93 mg/dL (0.70-1.30); EST Glomerular Filtration Rate 98 mL/min (>60); Est Glom Filt Rate - Afr Amer 119 mL/min (>60); Estimated Creatinine Clearance 100.04 ml/min; Glucose 115 mg/dL (74-106); Potassium 3.6 mmol/L (3.5-5.1); Sodium Level 136 mmol/L (136-145)
[2022-04-24] MEDS: Furosemide 40 MG/4 ML Vial IV ×3 (05:28→21:14)
[2022-04-24] MEDS: Nystatin Powder 15gm Bottle 1 APPLIC TOPICAL ×3 (05:29→21:15)
--- NOTE | 2022-04-24 06:55 | PN.CC_ITS ---
Assessment & Plan Assessment/Plan (1) Acute respiratory failure with hypoxia and hypercapnia: PLAN: Plan RECOMMENDATIONS: 1. Continue diuresis as tolerated by hemodynamics and renal function. 2. Wean supplemental oxygen to maintain saturations 88 to 92%. 3. Continue AVAPS therapy with naps and nightly. 4. Encourage incentive spirometer use and mobilize patient as tolerated. 5. Outpatient PSG and PCP follow-up is recommended. 6. We will sign off from a critical care perspective. Please call with any additional questions. IMPRESSIONS: 1. Acute on chronic combined respiratory failure Most likely secondary to decompensated heart failure with preserved ejection fraction coupled with alveolar hypoventilation secondary to obesity and probable sleep apnea. Infectious work-up has been unrevealing thus far. Antibiotics can be discontinued from my perspective. Recommend continuing diuretics as tolerated by hemodynamics and renal function. Continue to wean supplemental oxygen to maintain saturations 88 to 92%. The patient needs to be continued on AVAPS therapy with naps and nightly. Encourage incentive spirometer use and mobilize patient as tolerated. 2. Morbid obesity/high risk for sleep apnea/transaminitis likely secondary to fatty liver disease Complicates care, management, recovery and prognosis. Continue supportive measures as noted above. I strongly recommended the patient establish care with a primary care provider after discharge from the hospital. Continue PT/OT. This note was generated with [employer] dictation software. It may contain incorrect words, spelling, and punctuation that were not noted in checking the note before signing. Subjective Subjective The patient was seen and examined at the bedside this morning. Events from the last 24 hours have been reviewed. The patient is currently afebrile, hemodynamically stable and maintaining appropriate oxygen saturations on nasal cannula. The patient has been mostly tolerant of AVAPS therapy overnight. He is documented to be overall net -15.7 L for the hospitalization. Creatinine remains stable. Objective Data Objective Data The patient's most recent lab work, culture data and imaging studies have all been personally reviewed. Surface echocardiogram demonstrated normal LV size with moderate concentric LVH and an ejection fraction of 55%. Infectious work- up has been unrevealing to date. Vital Signs: Vital Signs Temp Pulse Resp BP Pulse Ox O2 Del Method O2 Flow Rate 99.5 F H 83 18 135/82 H 95 Bi-pap 4 04/24/22 04:43 04/24/22 04:43 04/24/22 04:43 04/24/22 04:43 04/24/22 04:43 04/24/22 04:43 04/24/22 02:00 FiO2 45 04/24/22 04:30 Oxygen Flow Rate (L/min) 4 Oxygen Delivery Method Bi-pap Weight: 260 lb 5.855 oz Body Mass Index (BMI) 76.5 Intake & Output: Intake and Output for Last 24 Hours 04/22/22 04/23/22 04/24/22 23:59 23:59 23:59 Intake Total 930 / 930 350 / 350 290 / 290 Output Total 3800 / 3800 4600 / 4600 1800 / 1800 Balance -2870 / -2870 -4250 / -4250 -1510 / -1510 Lab / Micro Data Attestation: I reviewed the patient's lab results. Result Diagrams: 04/23/22 04:40 04/24/22 04:30 Labs: Laboratory Results - last 24 hr 04/24/22 04:30: Sodium 136, Potassium 3.6, Chloride 95 L, Carbon Dioxide 37.0 H, Anion Gap 4 L, BUN 22 H, Creatinine 0.93, Estim Creat Clear Calc 100.04, Est GFR (MDRD) Af Amer 119, Est GFR (MDRD) Non-Af 98, BUN/Creatinine Ratio 23.7 H, Glucose 115 H, Calcium 8.9 Micro: Microbiology 04/20/22 05:15 Blood Culture (Wb) - Chest Bacteria Detection (PCR) - Final Staphylococcus epidermidis 04/20/22 05:15 Blood Culture (Wb) - Chest Blood Culture - Preliminary Coag Negative Staph 04/20/22 05:05 Blood Culture (Wb) - Right Hand Blood Culture - Preliminary No growth in 48 hours. 04/19/22 20:06 Sputum, Tracheal Aspirate Gram Stain - Final 04/19/22 20:06 Sputum, Tracheal Aspirate Respiratory Culture - Final Mixed normal respiratory kolton. No Streptococcus pneumoniae, beta-hemolytic Streptococcus or Staphylococcus aureus isolated. 04/19/22 21:35 Mucosa - Nasopharyngeal Respiratory Panel (PCR) - Final 04/19/22 21:35 Mucosa - Nasopharyngeal Influenza Types A,B Direct FA (TARYN) - Final 04/19/22 18:20 Nasal Secretion SARS-CoV-2 Antigen (Rapid) - Final ABG Data ABG results: ABG 04/21/22 07:14 Specimen Type ART Sample Site R Radial pH 7.45 Bicarbonate Actual 36.5 H Total CO2 38 Base Excess 13 H O2 Saturation 94 L O2 % 30 ABG pCO2 52.1 H ABG pO2 68 L Raza Test Positive O2 Delivery Device Adult Vent Vent Mode CPAP/PS POC PEEP 5 POC Pressure Suppt 5 Radiography Diagnostic Testing: Radiology Impression Chest X-Ray 04/22/22 07:40 IMPRESSION: Near complete resolution of previously noted airspace opacifications in both lung rogers. Continued follow-up recommended to ensure complete resolution. Since previous study patient has been extubated and NG tube removed Electronically Signed: Karson Zhu MD at 11:22 EST , Physical Exam Const alert and no apparent distress Constitutional Narrative: Morbidly obese. Sitting in bedside recliner. General Appearance: cooperative HEENT normocephalic and head/scalp atraumatic Eyes PERRL, EOMs intact bilaterally and conjunctivae normal Neck supple General: trachea midline Chest inspection of chest normal Resp normal respiratory effort Auscultation: diminished lung sounds; Negative for rales, rhonchi or wheezes Cardio regular rate and regular rhythm GI normal to inspection, nondistended, normoactive bowel sounds Extremity General Extremity: edema bilateral lower extremity Skin General Skin Exam: venous stasis and dermatitis Neuro CN's II-XII intact bilaterally and no focal motor deficits Psych cooperative and affect normal Charges/Coding Visit Charges Inpatient E&M: 49731 Subs Hosp L2
[2022-04-24] MEDS: Potassium Chloride Oral Tablet 20 MEQ 40 MEQ PO (07:49)
--- NOTE | 2022-04-24 08:46 | CASEMGMT ---
Addendum entered by Ruy Riley 04/24/22 09:26: AMEE GARCIA to room. Pt updated on the below information. He states he was talking w/his GF and GF's daughter this AM, and he is now considering SNF @ d/c. He states wants to talk things over with them some more before making final decision. GERMAN, Dianelys, made aware. Per message via [facility], [facility] unable to accept pt d/t staffing. Original Note: AMEE GARCIA NOTE: Call placed to Dr Peralta's office to inquire if AMEE GARCIA can assist w/getting pt an appt to get established as a new patient. Per financial secretary, they have a new patient intake form that needs completed that will be reviewed by Dr Peralta before deciding to accept pt and the soonest appt available would be the week of May 06. She states she will pass along the info that pt would need an appt TENZIN d/t need of [facility], as Dr Peralta may be able to get him in sooner. Pt's sig other aware of need of paperwork and informed AMEE GARCIA she was planning on going to Dr Peralta's office this AM to complete. Fady FREEDN AMEE GARCIA
[2022-04-24] MEDS: Enoxaparin 40 MG/0.4 ML Syringe SC ×2 (09:42→21:15)
[2022-04-24] MEDS: Carvedilol 12.5 MG Tablet PO ×2 (09:42→21:14)
--- NOTE | 2022-04-24 09:56 | CASEMGMT ---
Social Work SW spoke w/CM, pt is now thinking SNF will be a good idea. SW met w/pt, provided to pt a list of long term facilities via [employer], in pt's preferred geographic area and that takes his insurance, complete with quality and resource use data. SW explained to pt to look through list and let SW know 3-4 choices that he would consider. SW did explain some places may not have the appropriate sized bed for him so having 3-4 choices would be helpful. Pt states understanding. Pt states will speak w/his girlfriend and let this SW know choices. SW gave pt this SW's number and the SW in PCU's number as pt will be moving to PCU later today most likely. Plan: SNF, referral to be made once pt lets SW know choices. LOYDA Brownlee
--- NOTE | 2022-04-24 13:59 | CASEMGMT ---
RN RADHA NOTE: VM received from Consuelo, ICU elementary secretary, that pt has some questions. Kathy Edmonds RN CM, made aware, as this RN CM is leaving for the day. Fady FREEDN AMEE CM
--- NOTE | 2022-04-24 14:46 | PCM.PN.ID ---
Physical Exam Narrative Feeling better, denies fever, breathing improved, no n/v/d. Const alert and no apparent distress General Appearance: cooperative Resp normal air movement and clear to auscultation bilaterally Cardio regular rate and regular rhythm GI soft to palpation, non-tender and non-distended Extremity General Extremity: edema Skin Skin Narrative: improved erythema ID ID: Route of nutrition/ use of supplements: [] Nutritional Intake: [] IV Site: [] [place] Catheter: [] Assessment & Plan Assessment/Plan (1) Acute respiratory failure with hypoxia and hypercapnia: PLAN: Bcx neg. Still low grade fever here. MRSA pcr neg. Will stop zosyn. Pt says temp at baseline is elevated. Will follow
--- NOTE | 2022-04-24 15:26 | CASEMGMT ---
SW received patient's [facility] facility choices. Patient's choices are: [facility], [facility], [facility], and [facility]. [employer] obtained an accurate weight for patient. Patient is 469 this will limit which facility he will be able to go to. [facility] and [facility] have weight limits of 300-350. SW did call [facility] and they agreed to look at the referral. SW sent referrals to [facility] and [facility] via [employer]. Zhane Abarca [employer]
--- NOTE | 2022-04-24 15:46 | PN.HOSP_ITS ---
Reason for Visit Reason for Visit: Mental status change Subjective Subjective Oxygen has been weaned to 4 L. Patient continues to diurese well at negative almost 16 L for his hospital stay. No signs of change in his BUN or creatinine as of yet. Plan to diurese aggressively until we start to affect his renal function and then will back off to oral diuretics. Patient states he is feeling better. Planning on going to SNF at discharge to improve his strength. Objective Data Objective Data Vital Signs: Vital Signs Temp Pulse Resp BP Pulse Ox O2 Del Method O2 Flow Rate 99.7 F H 81 10 L 131/72 H 95 Nasal Cannula 4 04/24/22 10:00 04/24/22 12:26 04/24/22 12:26 04/24/22 10:00 04/24/22 10:00 04/24/22 14:00 04/24/22 14:00 FiO2 45 04/24/22 06:58 Oxygen Flow Rate (L/min) 4 Oxygen Delivery Method Nasal Cannula Weight: 212.962 kg Body Mass Index (BMI) 73.7 Intake & Output: Intake and Output for Last 24 Hours 04/22/22 04/23/22 04/24/22 23:59 23:59 23:59 Intake Total 930 / 930 350 / 350 340 / 340 Output Total 3800 / 3800 4600 / 4600 2800 / 2800 Balance -2870 / -2870 -4250 / -4250 -2460 / -2460 Lab / Micro Data Result Diagrams: 04/23/22 04:40 04/24/22 04:30 Labs: Laboratory Results - last 24 hr 04/24/22 04:30: Sodium 136, Potassium 3.6, Chloride 95 L, Carbon Dioxide 37.0 H, Anion Gap 4 L, BUN 22 H, Creatinine 0.93, Estim Creat Clear Calc 100.04, Est GFR (MDRD) Af Amer 119, Est GFR (MDRD) Non-Af 98, BUN/Creatinine Ratio 23.7 H, Glucose 115 H, Calcium 8.9 Micro: Microbiology 04/20/22 05:15 Blood Culture (Wb) - Chest Bacteria Detection (PCR) - Final Staphylococcus epidermidis 04/20/22 05:15 Blood Culture (Wb) - Chest Blood Culture - Final Coag Negative Staph 04/20/22 05:05 Blood Culture (Wb) - Right Hand Blood Culture - Preliminary No growth in 48 hours. 04/19/22 20:06 Sputum, Tracheal Aspirate Gram Stain - Final 04/19/22 20:06 Sputum, Tracheal Aspirate Respiratory Culture - Final Mixed normal respiratory kolton. No Streptococcus pneumoniae, beta-hemolytic Streptococcus or Staphylococcus aureus isolated. 04/19/22 21:35 Mucosa - Nasopharyngeal Respiratory Panel (PCR) - Final 04/19/22 21:35 Mucosa - Nasopharyngeal Influenza Types A,B Direct FA (TARYN) - Final 04/19/22 18:20 Nasal Secretion SARS-CoV-2 Antigen (Rapid) - Final Physical Exam Const alert, oriented x3, no apparent distress and well nourished Constitutional Narrative: Morbidly obese, young middle-aged white male, sitting up in a chair at the bedside, watching television, eating breakfast, very pleasant, appears comfortab le and nontoxic HEENT head/scalp atraumatic and moist oral mucous membranes HEENT Narrative: Tara 4, no thrush Head and Scalp: normocephalic Resp normal respiratory effort, no retractions, no use of accessory muscles and clear to auscultation bilaterally Resp Narrative: Diminished, breath sounds are distant but no adventitious sounds noted-exam is limited by body habitus Auscultation: Negative for rales, rhonchi or wheezes Cardio regular rate, regular rhythm, S1 normal heart sound, S2 normal heart sound, no murmurs, no rub, no gallops, no clicks and no JVD GI normal to inspection, nondistended, normoactive bowel sounds, soft to palpation and non-tender GI Narrative: Large protuberant abdomen Extremity Extremity Narrative: Pitting edema still present-2+, skin is starting to wrinkle more Neuro oriented x3, moves all extremities and no focal motor deficits Neuro Narrative: Significant weakness Speech: speech normal Psych affect normal Psych Narrative: Very pleasant and appropriately interactive Assessment & Plan Assessment/Plan (1) Acute respiratory failure with hypoxia and hypercapnia: (2) Transaminitis: (3) Elevated TSH: (4) Cellulitis: (5) Dilated aortic root: (6) Elevated blood pressure reading: PLAN: Plan Acute hypoxic and hypercapnic respiratory failure -This is SYMONE untreated/cor pulmonale/obesity hypoventilation syndrome -Highly doubt infectious etiology as infectious work-up has been negative thus far -Suspect baseline hypercapnic respiratory failure however no documentation of this -Required intubation prior to admission with initial pH of 7.08 and a PCO2 of 136 -Chest x-ray demonstrated cardiomegaly with mild vascular congestion and no tanya interstitial edema with bibasilar atelectasis and no focal infiltrate -Continue Lasix 40 mg IV push 3 times daily -Fluid restricted diet to 1750 daily -Sodium restricted diet to 2 g daily -Patient down 15.7-3 L for his hospital stay -Renal function remained stable so we will continue aggressive diuresis -Echocardiogram performed and shows an EF of 55% with mildly to moderately dilated aortic root and moderate concentric LVH -Pulmonary/CCM following-appreciate input -Dietitian has been consulted and is following for recommendations with a low sodium diet -Will need trilogy at discharge -We will need to check room air pulse ox when she is optimized from a heart failure standpoint to assess for obesity hypoventilation syndrome Pannicular cellulitis -No further fevers -Continue Zosyn -Cultures all remain negative -ID is following Dilated aortic root -4.4 cm on echocardiogram -Will need outpatient follow-up after discharge -Could consider CTA for better examination of aortic root as an outpatient -Maximize blood pressure control--> control has been good at this time Hypertension -Continue Coreg 12.5 mg p.o. twice daily--> he will need this prescription at discharge -May need additional medication however will monitor with ongoing diuresis as he will likely go home with oral Lasix -Blood pressure control is better Hepatosteatosis -GI referral at discharge Elevated TSH -TSH was 8.81 -Free T4 was within normal limits -Euthyroid sick syndrome Morbid Obesity -BMI 40.6 -Recommend wgt loss -Complicates treatment, prognosis, and outcomes DVT prophylaxis -Continue Lovenox 40 mg BID Code status -Full Code Charges/Coding Visit Charges Inpatient E&M: 59072 Subs Hosp L2
[2022-04-24 20:33] LABS: C-Peptide 5.2 ng/mL (1.1-4.4)
[2022-04-25] VITALS (11 sets, daily range): BP systolic 123–139; BP diastolic 72–86; PULSE 80–93; RESP 12–97; TEMP 37.7–38.4; O2SAT 92–96
[2022-04-25] MEDS: Acetaminophen 325 MG Tablet 650 MG PO ×3 (01:00→22:04)
[2022-04-25] MEDS: Ipratropium/Albuterol Sulfate 3 ML AMPUL.NEB INHALATION ×4 (01:38→19:32)
[2022-04-25] MEDS: Furosemide 40 MG/4 ML Vial IV ×3 (04:58→21:53)
[2022-04-25 05:20] LABS: Anion Gap 5 (5-15); BUN 22 mg/dL (7-18); BUN/Creat Ratio 26.9 RATIO (10-20); Calcium,Total 8.8 mg/dL (8.5-10.1); Chloride 96 mmol/L (98-107); Creatinine, Serum 0.82 mg/dL (0.70-1.30); EST Glomerular Filtration Rate 114 mL/min (>60); Est Glom Filt Rate - Afr Amer 137 mL/min (>60); Estimated Creatinine Clearance 113.47 ml/min; Glucose 116 mg/dL (74-106); Potassium 3.7 mmol/L (3.5-5.1); Sodium Level 137 mmol/L (136-145)
[2022-04-25] MEDS: Nystatin Powder 15gm Bottle 1 APPLIC TOPICAL ×2 (05:44→21:54)
--- NOTE | 2022-04-25 09:00 | CPS ---
Changed from AVAPS to BIPAP which took pressures of 22/10 w/4lpm (or 35%)
[2022-04-25] MEDS: Enoxaparin 40 MG/0.4 ML Syringe SC ×2 (09:06→21:53)
[2022-04-25] MEDS: Carvedilol 12.5 MG Tablet PO ×2 (09:06→21:53)
--- NOTE | 2022-04-25 12:23 | PCM.PN.HOSP ---
Reason for Visit Reason for Visit: Mental status change Subjective Subjective Patient requiring only between 2 and 4 L of oxygen depending on exertional level. Continues to diurese well. No elevated renal function as of yet despite aggressive diuresis with Lasix 40 mg IV push 3 times daily. Currently -18.32 L for his hospitalization. I plan to continue to push IV diuretics until he starts to have an elevation in his serum creatinine then transition to oral diuretics at discharge. Current plan is for discharge to skilled facility at discharge. Pre-CERT was initiated today. Objective Data Objective Data Vital Signs: Vital Signs Temp Pulse Resp BP Pulse Ox O2 Del Method O2 Flow Rate 99.8 F H 88 18 123/74 H 93 Nasal Cannula 4 04/25/22 09:42 04/25/22 09:42 04/25/22 09:42 04/25/22 09:42 04/25/22 09:42 04/25/22 09:42 04/25/22 09:42 FiO2 40 04/25/22 09:00 Oxygen Flow Rate (L/min) 4 Oxygen Delivery Method Nasal Cannula Weight: 212.962 kg Body Mass Index (BMI) 73.7 Intake & Output: Intake and Output for Last 24 Hours 04/23/22 04/24/22 04/25/22 23:59 23:59 23:59 Intake Total 350 / 350 1150 / 1150 240 / 240 Output Total 4600 / 4600 4600 / 4600 900 / 900 Balance -4250 / -4250 -3450 / -3450 -660 / -660 Lab / Micro Data Result Diagrams: 04/23/22 04:40 04/25/22 04:56 Labs: Laboratory Results - last 24 hr 04/23/22 08:40: C-Peptide 5.2 H 04/25/22 04:56: Sodium 137, Potassium 3.7, Chloride 96 L, Carbon Dioxide 36.0 H, Anion Gap 5, BUN 22 H, Creatinine 0.82, Estim Creat Clear Calc 113.47, Est GFR (MDRD) Af Amer 137, Est GFR (MDRD) Non-Af 114, BUN/Creatinine Ratio 26.9 H, Glucose 116 H, Calcium 8.8 Micro: Microbiology 04/20/22 05:05 Blood Culture (Wb) - Right Hand Blood Culture - Final No growth in 5 days. 04/20/22 05:15 Blood Culture (Wb) - Chest Bacteria Detection (PCR) - Final Staphylococcus epidermidis 04/20/22 05:15 Blood Culture (Wb) - Chest Blood Culture - Final Coag Negative Staph 04/19/22 20:06 Sputum, Tracheal Aspirate Gram Stain - Final 04/19/22 20:06 Sputum, Tracheal Aspirate Respiratory Culture - Final Mixed normal respiratory kolton. No Streptococcus pneumoniae, beta-hemolytic Streptococcus or Staphylococcus aureus isolated. 04/19/22 21:35 Mucosa - Nasopharyngeal Respiratory Panel (PCR) - Final 04/19/22 21:35 Mucosa - Nasopharyngeal Influenza Types A,B Direct FA (ATRYN) - Final 04/19/22 18:20 Nasal Secretion SARS-CoV-2 Antigen (Rapid) - Final Physical Exam Const alert, oriented x3, no apparent distress and well nourished Constitutional Narrative: Morbidly obese, young middle-aged white male, sitting up in a chair at the bedside, talking on the phone with his significant other, very pleasant, appears comfortable and nontoxic HEENT head/scalp atraumatic and moist oral mucous membranes HEENT Narrative: Mallampati 3-4, no thrush Head and Scalp: normocephalic Resp normal respiratory effort, no retractions, no use of accessory muscles and clear to auscultation bilaterally Resp Narrative: Diminished, breath sounds are distant but no adventitious sounds noted-exam is limited by body habitus Auscultation: Negative for rales, rhonchi or wheezes Cardio regular rate, regular rhythm, S1 normal heart sound, S2 normal heart sound, no murmurs, no rub, no gallops, no clicks and no JVD GI normal to inspection, nondistended, normoactive bowel sounds, soft to palpation and non-tender GI Narrative: Large protuberant abdomen Extremity Extremity Narrative: Pitting edema still present-2+, skin is starting to wrinkle more and legs are now soft instead of hard Neuro oriented x3, moves all extremities and no focal motor deficits Speech: speech normal Psych affect normal Psych Narrative: Very pleasant and appropriately interactive, very gracious and thankful for care Assessment & Plan Assessment/Plan (1) Acute respiratory failure with hypoxia and hypercapnia: (2) Transaminitis: (3) Elevated TSH: (4) Cellulitis: (5) Dilated aortic root: (6) Elevated blood pressure reading: (7) Debility: PLAN: Plan Acute hypoxic and hypercapnic respiratory failure -This is SYMONE untreated/cor pulmonale/obesity hypoventilation syndrome -Highly doubt infectious etiology as infectious work-up has been negative thus far -Suspect baseline hypercapnic respiratory failure however no documentation of this -Required intubation prior to admission with initial pH of 7.08 and a PCO2 of 136 -Chest x-ray demonstrated cardiomegaly with mild vascular congestion and no tanya interstitial edema with bibasilar atelectasis and no focal infiltrate -Continue Lasix 40 mg IV push 3 times daily -Fluid restricted diet to 1750 daily -Sodium restricted diet to 2 g daily -Patient down 18.3 to L for his hospital stay -Renal function remained stable so we will continue aggressive diuresis -Echocardiogram performed and shows an EF of 55% with mildly to moderately dilated aortic root and moderate concentric LVH -Pulmonary/CCM following-appreciate input -Dietitian has been consulted and is following for recommendations with a low sodium diet -Will need trilogy at discharge--> settings are 21/02 -We will need to check room air pulse ox when she is optimized from a heart failure standpoint to assess for obesity hypoventilation syndrome--> I need to wait to do this until he is completely medically optimized from a diuresis standpoint Pannicular cellulitis -No further fevers -Zosyn was discontinued by infectious disease yesterday -Monitor clinically -Cultures all remain negative -ID is still following Dilated aortic root -4.4 cm on echocardiogram -Will need outpatient follow-up after discharge -Could consider CTA for better examination of aortic root as an outpatient -Overall blood pressure control has been within goal range ideally less than 130/80 Hypertension -Continue Coreg 12.5 mg p.o. twice daily--> he will need this prescription at discharge -Blood pressure control is better -Goal range is less than 130/80 Hepatosteatosis -GI referral at discharge Elevated TSH -TSH was 8.81 -Free T4 was within normal limits -Euthyroid sick syndrome Debility -Patient has significant weakness -Plan is for discharge to skilled facility per OT/PT recommendations -Pre-CERT was initiated on 04/25/2022 Morbid Obesity -BMI 73.7 -Recommend wgt loss -Complicates treatment, prognosis, and outcomes DVT prophylaxis -Continue Lovenox 40 mg BID Code status -Full Code Charges/Coding Visit Charges Inpatient E&M: 07043 Subs Hosp L2
--- NOTE | 2022-04-25 14:00 | CASEMGMT ---
SW spoke with patient and his significant other. SW let them know [facility] are not able to take patient as patient is over their weight limit. SW let them know [facility] can take him. SW is still waiting on [facility] to get back to SW. SW asked if they want to go with [facility] or wait on [facility]. They wanted to wait on [facility]. SW let them know if SW does not hear from [facility] by the end of the day we will need to proceed with [facility]. SW explained that patient's insurance has to approve him and we need to get this process started. They verbalized understanding. Zhane Abarca [employer] CARLOS
--- NOTE | 2022-04-25 14:10 | CASEMGMT ---
GERMAN spoke with Loli at [facility] and she said her router setter stepped out for a little bit, but she should be back anytime now. She will go over referral with her and get back to GERMAN soon. Zhane Abarca OR MANAGER CARLOS
--- NOTE | 2022-04-25 16:08 | CASEMGMT ---
Addendum entered by Zhane Abarca 04/25/22 16:16: SW notified patient about not hearing back from [facility] and patient was in agreement with [facility]. Zhane GONZALEZ Original Note: SW has not heard back from Loli at [facility]. SW tried to call her, but there was no answer. GERMAN asked [facility] to please start the pre-cert. SW will notify patient. Plan: d/c to [facility] pending insurance approval. Zhane GONZALEZ
[2022-04-26] VITALS (14 sets, daily range): BP systolic 104–154; BP diastolic 64–89; PULSE 86–103; RESP 12–28; TEMP 36.6–38.2; O2SAT 90–98; BMI 73.3
[2022-04-26] MEDS: Ipratropium/Albuterol Sulfate 3 ML AMPUL.NEB INHALATION ×3 (01:30→12:36)
[2022-04-26 04:53] LABS: Absolute Lymphocyte Count 1.62 X10^3/uL (0.83-4.51); Absolute Neutrophil Count 6.2 X10^3/uL (2.0-7.7); Basophil# 0.03 X10^3/uL; Basophil% 0.3 % (0-1); Eosinophil# 0.31 X10^3/uL; Eosinophils% 3.2 % (0-5); Hematocrit 38.2 % (40-54); Hemoglobin 11.6 g/dL (13.0-16.5); Lymphocyte # 1.62 X10^3/ul (0.83-4.51); Lymphocyte % 16.7 % (19-41); Mean Corp Hgb Conc 30.4 g/dL (32-36); Mean Corpuscular Hgb 28.3 pg (27.0-32.0); Mean Corpuscular Volume 93.2 fL (80-94); Mean Platelet Vol. 10.4 fl (6.2-12.0); Monocyte# 1.44 X10^3/uL; Monocyte% 14.9 % (0-10); NRBC Flagged by Analyzer 0 % (0-5); Neutrophil # 6.24 X10^3/uL (2.7-7.7); Neutrophil % 64.5 % (47-70); Platelet Count 201 K/mm3 (150-450); RBC Distribution Width CV 14.3 % (11.6-14.6); RBC Distribution Width SD 48.2 fl (35.1-43.9); White Blood Count 9.7 K/mm3 (4.4-11.0)
[2022-04-26 05:09] LABS: Anion Gap 4 (5-15); BUN 18 mg/dL (7-18); BUN/Creat Ratio 25.2 RATIO (10-20); Calcium,Total 8.9 mg/dL (8.5-10.1); Chloride 95 mmol/L (98-107); Creatinine, Serum 0.72 mg/dL (0.70-1.30); EST Glomerular Filtration Rate 132 mL/min (>60); Est Glom Filt Rate - Afr Amer 160 mL/min (>60); Estimated Creatinine Clearance 129.22 ml/min; Glucose 106 mg/dL (74-106); Magnesium 2.3 mg/dL (1.6-2.6); Potassium 3.5 mmol/L (3.5-5.1); Sodium Level 137 mmol/L (136-145)
[2022-04-26 05:18] LABS: Phosphorus 3.2 mg/dL (2.5-4.9)
[2022-04-26] MEDS: Nystatin Powder 15gm Bottle 1 APPLIC TOPICAL ×3 (05:45→21:37)
[2022-04-26] MEDS: Furosemide 40 MG/4 ML Vial IV (05:46)
[2022-04-26] MEDS: Potassium Chloride Oral Tablet 20 MEQ 60 MEQ PO ×2 (08:16→14:52)
--- NOTE | 2022-04-26 10:39 | CASEMGMT ---
Addendum entered by Dianelys Cummings 04/26/22 11:45: Social Work SW did check w/physician on when pt may be ready, he may be ready on the weekend. SW checked w/SNF about their maximum capability for oxygen, it is 10LPM. Plan continues to be for pt to go to [facility] skilled once medically ready and precert is attained. LOYDA Brownlee Original Note: Social Work SW spoke w/pt in room to let him know we are still waiting for precert to [facility]. SW sent a message to [facility] [employer] inquiring about precert, and asking them to call the unit directly if they get precert over the weekend. SW completed PAS/RR, placed this on chart along w/transport forms and green sheet in event pt is discharged on the weekend. LOYDA Brownlee
--- NOTE | 2022-04-26 10:50 | CASEMGMT ---
Social Work Pt completed POA paperwork while here, pt put girlfriend as POA. LOYDA Brownlee
[2022-04-26] MEDS: Enoxaparin 40 MG/0.4 ML Syringe SC ×2 (10:54→21:37)
[2022-04-26] MEDS: Carvedilol 12.5 MG Tablet PO ×2 (10:54→21:37)
--- NOTE | 2022-04-26 11:21 | PCM.PN.HOSP ---
Reason for Visit Reason for Visit: Mental status change Subjective Subjective No issues overnight. Patient is on 2 to 4 L of oxygen at rest. Has requiring 6 L today with exertion. Is down almost to 20 L for his hospital course. Febrile overnight. ID is managing antibiotics and no source of infection has been found. Patient has no subjective complaints. I am going to push diuresis today and started Lasix drip at a high rate to see if we can push him a little bit more to get more fluid off aggressively. Objective Data Objective Data Vital Signs: Vital Signs Temp Pulse Resp BP Pulse Ox O2 Del Method O2 Flow Rate 99.7 F H 101 H 20 H 131/64 H 98 Nasal Cannula 4 04/26/22 09:30 04/26/22 09:30 04/26/22 09:30 04/26/22 09:30 04/26/22 10:05 04/26/22 09:30 04/26/22 10:05 FiO2 40 04/26/22 06:42 Oxygen Flow Rate (L/min) 4 Oxygen Delivery Method Nasal Cannula Weight: 212 kg Body Mass Index (BMI) 73.3 Intake & Output: Intake and Output for Last 24 Hours 04/24/22 04/25/22 04/26/22 23:59 23:59 23:59 Intake Total 1150 / 1150 1060 / 1060 Output Total 4600 / 4600 1650 / 3150 5050 / 5050 Balance -3450 / -3450 -590 / -2090 -5050 / -5050 Lab / Micro Data Result Diagrams: 04/26/22 04:45 04/26/22 04:45 Labs: Laboratory Results - last 24 hr 04/26/22 04:45: Sodium 137, Potassium 3.5, Chloride 95 L, Carbon Dioxide 38.0 H, Anion Gap 4 L, BUN 18, Creatinine 0.72, Estim Creat Clear Calc 129.22, Est GFR (MDRD) Af Amer 160, Est GFR (MDRD) Non-Af 132, BUN/Creatinine Ratio 25.2 H, Glucose 106, Calcium 8.9, Magnesium 2.3 04/26/22 04:45: WBC 9.7, RBC 4.10 L, Hgb 11.6 L, Hct 38.2 L, MCV 93.2, MCH 28.3, MCHC 30.4 L, RDW Std Deviation 48.2 H, RDW Coeff of Zulma 14.3, Plt Count 201, MPV 10.4, Immature Gran % (Auto) 0.400, Neut % (Auto) 64.5, Lymph % (Auto) 16.7 L, [place] % (Auto) 14.9 H, Eos % (Auto) 3.2, Baso % (Auto) 0.3, Absolute Neuts (auto) 6.2, Absolute Lymphs (auto) 1.62, Nucleated RBC % 0 04/26/22 04:45: Phosphorus 3.2 Micro: Microbiology 04/20/22 05:05 Blood Culture (Wb) - Right Hand Blood Culture - Final No growth in 5 days. 04/20/22 05:15 Blood Culture (Wb) - Chest Bacteria Detection (PCR) - Final Staphylococcus epidermidis 04/20/22 05:15 Blood Culture (Wb) - Chest Blood Culture - Final Coag Negative Staph 04/19/22 20:06 Sputum, Tracheal Aspirate Gram Stain - Final 04/19/22 20:06 Sputum, Tracheal Aspirate Respiratory Culture - Final Mixed normal respiratory kolton. No Streptococcus pneumoniae, beta-hemolytic Streptococcus or Staphylococcus aureus isolated. 04/19/22 21:35 Mucosa - Nasopharyngeal Respiratory Panel (PCR) - Final 04/19/22 21:35 Mucosa - Nasopharyngeal Influenza Types A,B Direct FA (TARYN) - Final 04/19/22 18:20 Nasal Secretion SARS-CoV-2 Antigen (Rapid) - Final Physical Exam Const alert, oriented x3, no apparent distress and well nourished Constitutional Narrative: Morbidly obese, young middle-aged white male, lying in bed, watching television, nursing at bedside for repositioning, very pleasant, appears comfortable and nontoxic HEENT head/scalp atraumatic and moist oral mucous membranes HEENT Narrative: Mallampati 4, no thrush, dentition is good anteriorly-difficult to see posteriorly Head and Scalp: normocephalic Resp normal respiratory effort, no retractions, no use of accessory muscles and clear to auscultation bilaterally Resp Narrative: Diminished, breath sounds are distant but no adventitious sounds noted-exam is limited by body habitus Auscultation: Negative for rales, rhonchi or wheezes Cardio regular rate, regular rhythm, S1 normal heart sound, S2 normal heart sound, no murmurs, no rub, no gallops, no clicks and no JVD GI normal to inspection, nondistended, normoactive bowel sounds, soft to palpation and non-tender GI Narrative: Large protuberant abdomen, pannus was evaluated fully today and no signs of erythema or infection Extremity Extremity Narrative: Patient was still significant pitting edema in bilateral lower extremities however skin is much softer than it was on admission as he continues to diurese Neuro oriented x3, moves all extremities and no focal motor deficits Neuro Narrative: Significant weakness Speech: speech normal Psych affect normal Psych Narrative: Very pleasant, continued to be appreciative of care Assessment & Plan Assessment/Plan (1) Acute respiratory failure with hypoxia and hypercapnia: (2) Transaminitis: (3) Elevated TSH: (4) Cellulitis: (5) Dilated aortic root: (6) Elevated blood pressure reading: (7) Debility: PLAN: Plan Acute hypoxic and hypercapnic respiratory failure -This is SYMONE untreated/cor pulmonale/obesity hypoventilation syndrome -Suspect baseline hypercapnic respiratory failure however no documentation of this -Required intubation prior to admission with initial pH of 7.08 and a PCO2 of 136--> was able to be extubated quite quickly -Continue diuresis but I will put him on a high intensity Lasix drip as fluid removal has been ongoing but slow -Continue fluid restricted diet to 1750 daily -Continue sodium restricted diet to 2 g daily -Patient down 19.753 to L for his hospital stay -Renal function remained stable so we will continue aggressive diuresis -Echocardiogram performed and shows an EF of 55% with mildly to moderately dilated aortic root and moderate concentric LVH -Pulmonary/CCM following-appreciate input -Dietitian has been consulted and is following for recommendations with a low sodium diet -Will need trilogy at discharge--> settings are 21/02 -We will need to check room air pulse ox when she is optimized from a heart failure standpoint to assess for obesity hypoventilation syndrome--> I need to wait to do this until he is completely medically optimized from a diuresis standpoint -Potassium remains normal however with aggressive diuresis will give 40 mill equivalents potassium is 3.5 today and I expect to drop with more aggressive diuresis Pannicular cellulitis -Patient with recurrent fevers overnight -Zosyn was discontinued by infectious disease yesterday -Monitor clinically -Cultures all remain negative -ID is still following--> await input with fever overnight Dilated aortic root -4.4 cm on echocardiogram -Will need outpatient follow-up after discharge -Could consider CTA for better examination of aortic root as an outpatient -Overall blood pressure control has been within goal range ideally less than 130/80 Hypertension -Continue Coreg 12.5 mg p.o. twice daily--> he will need this prescription at discharge -Blood pressure remains in goal ranges of 130/80 or less Hepatosteatosis -GI referral at discharge -Suspect related to severe dysmetabolic syndrome Elevated TSH -TSH was 8.81 -Free T4 was within normal limits -Euthyroid sick syndrome Debility -Patient has significant weakness -Plan is for discharge to skilled facility per OT/PT recommendations -Pre-CERT was initiated on 04/25/2022 Morbid Obesity -BMI 73.7 -Recommend wgt loss -Complicates treatment, prognosis, and outcomes DVT prophylaxis -Continue Lovenox 40 mg BID Code status -Full Code Charges/Coding Visit Charges Inpatient E&M: 37532 Subs Hosp L2
--- NOTE | 2022-04-26 11:46 | PCM.PN.ID ---
Physical Exam Narrative Still with asymptomatic fever. Breathing better. Some sputum. No abd pain, no n/v/d. Const alert and no apparent distress Resp normal air movement and clear to auscultation bilaterally Cardio regular rate and regular rhythm GI soft to palpation, non-tender and non-distended Extremity General Extremity: edema Skin Skin Narrative: mild erythema BLE ID ID: Route of nutrition/ use of supplements: [] Nutritional Intake: [] IV Site: [] [place] Catheter: [] Assessment & Plan Assessment/Plan (1) Acute respiratory failure with hypoxia and hypercapnia: PLAN: Bcx neg. Still low grade fever here. MRSA pcr neg. Pt says temp at baseline is elevated. Off abx. Will check repeat cxs, covid, procal. Will follow
[2022-04-26 12:28] LABS: Procalcitonin 0.13 ng/mL (0.00-0.09)
[2022-04-26 12:39] LABS: Bacteria 0 SEEN /hpf (None Seen); Mucous, Urine 0 SEEN /hpf (<or=2+); Red Blood Cells-Urine 0 SEEN /hpf (0-5); Squamous Epithelial Cells - UA 0 SEEN /hpf (0-5)
--- NOTE | 2022-04-26 12:41 | CASEMGMT ---
Social Work Updated PT/OT sent to [facility] via [facility]. OLYDA Brownlee
[2022-04-26 12:45] LABS: Color, Urine Yellow (Yellow); Glucose, Dipstick Normal (Normal); Ketone-Dipstick Negative (Negative); Leukocyte Esterase-Dipstick 25 /ul (Negative); Nitrite-Dipstick Negative (Negative); Occult Blood-Urine 150 /ul (Negative); Protein-Dipstick 30 mg/dl (Negative); Urine Bilirubin Dipstick Negative (Negative); Urine Clarity Clear (Clear); Urine Urobilinogen Normal (Normal)
[2022-04-26 12:50] LABS: White Blood Cells 0-5 SEEN /hpf (0-5)
[2022-04-26 14:31] LABS: Anion Gap 5 (5-15); BUN 17 mg/dL (7-18); BUN/Creat Ratio 19.6 RATIO (10-20); Calcium,Total 9.2 mg/dL (8.5-10.1); Chloride 93 mmol/L (98-107); Creatinine, Serum 0.87 mg/dL (0.70-1.30); EST Glomerular Filtration Rate 106 mL/min (>60); Est Glom Filt Rate - Afr Amer 128 mL/min (>60); Estimated Creatinine Clearance 106.94 ml/min; Glucose 132 mg/dL (74-106); Potassium 3.5 mmol/L (3.5-5.1); Sodium Level 137 mmol/L (136-145)
[2022-04-27] VITALS (14 sets, daily range): BP systolic 124–156; BP diastolic 55–83; PULSE 76–99; RESP 12–24; TEMP 36.8–37.9; O2SAT 91–96; BMI 70.4
[2022-04-27] MEDS: Ipratropium/Albuterol Sulfate 3 ML AMPUL.NEB INHALATION ×3 (01:54→19:17)
[2022-04-27] MEDS: Nystatin Powder 15gm Bottle 1 APPLIC TOPICAL ×3 (04:39→21:49)
[2022-04-27 08:00] LABS: Anion Gap 6 (5-15); BUN 20 mg/dL (7-18); BUN/Creat Ratio 23.8 RATIO (10-20); Chloride 92 mmol/L (98-107); Creatinine, Serum 0.84 mg/dL (0.70-1.30); EST Glomerular Filtration Rate 110 mL/min (>60); Est Glom Filt Rate - Afr Amer 133 mL/min (>60); Estimated Creatinine Clearance 110.76 ml/min; Glucose 101 mg/dL (74-106); Magnesium 1.8 mg/dL (1.6-2.6); Potassium 3.6 mmol/L (3.5-5.1); Sodium Level 136 mmol/L (136-145)
[2022-04-27 08:58] LABS: Phosphorus 3.8 mg/dL (2.5-4.9)
[2022-04-27] MEDS: Potassium Chloride Oral Tablet 20 MEQ 60 MEQ PO ×2 (09:54→15:49)
[2022-04-27] MEDS: Magnesium Chloride 64 MG Delay Rel.Tablet 128 MG PO ×2 (09:55→21:52)
[2022-04-27] MEDS: Enoxaparin 40 MG/0.4 ML Syringe SC ×2 (09:55→21:47)
[2022-04-27] MEDS: Carvedilol 12.5 MG Tablet PO ×2 (09:55→21:48)
--- NOTE | 2022-04-27 10:50 | PCM.PN.HOSP ---
Reason for Visit Reason for Visit: Change in mental status Subjective Subjective No significant issues overnight. Patient diuresing extremely well and negative over 30 L for his hospital stay. His weight is down to 203 kg from 221 on admission. Creatinine remains stable then we will continue IV diuresis with the drip until I affect renal function some. Objective Data Objective Data Vital Signs: Vital Signs Temp Pulse Resp BP Pulse Ox O2 Del Method O2 Flow Rate 99.4 F H 89 18 156/83 H 94 Nasal Cannula 4 04/27/22 09:46 04/27/22 09:46 04/27/22 09:46 04/27/22 09:46 04/27/22 09:46 04/27/22 09:46 04/27/22 09:46 FiO2 40 04/27/22 08:14 Oxygen Flow Rate (L/min) 4 Oxygen Delivery Method Nasal Cannula Weight: 203.5 kg Body Mass Index (BMI) 70.4 Intake & Output: Intake and Output for Last 24 Hours 04/25/22 04/26/22 04/27/22 23:59 23:59 23:59 Intake Total 1060 / 1060 34 / 334 647.53 / 647.53 Output Total 1650 / 3150 7750 / 87856 4800 / 4800 Balance -590 / -2090 -7716 / -63687 -4152.47 / -4152.47 Lab / Micro Data Result Diagrams: 04/26/22 04:45 04/27/22 06:40 Labs: Laboratory Results - last 24 hr 04/26/22 11:50: Procalcitonin 0.13 H 04/26/22 12:30: Urine Color Yellow, Urine Clarity Clear, Urine pH 7.0, Ur Specific [place] 1.010, Urine Protein 30 H, Urine Glucose (UA) Normal, Urine Ketones Negative, Urine Occult Blood 150 H, Urine Nitrite Negative, Urine Bilirubin Negative, Urine Urobilinogen Normal, Ur Leukocyte Esterase 25 H, Urine RBC 0 SEEN, Urine WBC 0-5 SEEN, Ur Squamous Epith Cells 0 SEEN, Urine Bacteria 0 SEEN, Urine Mucus 0 SEEN 04/26/22 12:35: COVID-19 (EMRE) Not Detected 04/26/22 14:10: Sodium 137, Potassium 3.5, Chloride 93 L, Carbon Dioxide 39.0 H, Anion Gap 5, BUN 17, Creatinine 0.87, Estim Creat Clear Calc 106.94, Est GFR (MDRD) Af Amer 128, Est GFR (MDRD) Non-Af 106, BUN/Creatinine Ratio 19.6, Glucose 132 H, Calcium 9.2 04/27/22 06:40: Sodium 136, Potassium 3.6, Chloride 92 L, Carbon Dioxide 38.0 H, Anion Gap 6, BUN 20 H, Creatinine 0.84, Estim Creat Clear Calc 110.76, Est GFR (MDRD) Af Amer 133, Est GFR (MDRD) Non-Af 110, BUN/Creatinine Ratio 23.8 H, Glucose 101, Calcium 9.0, Magnesium 1.8 04/27/22 06:40: Phosphorus 3.8 Micro: Microbiology 04/26/22 12:30 Urine Catheter - Catheter Urine Culture - Preliminary Culture exhibits no growth. 04/20/22 05:05 Blood Culture (Wb) - Right Hand Blood Culture - Final No growth in 5 days. 04/20/22 05:15 Blood Culture (Wb) - Chest Bacteria Detection (PCR) - Final Staphylococcus epidermidis 04/20/22 05:15 Blood Culture (Wb) - Chest Blood Culture - Final Coag Negative Staph 04/19/22 20:06 Sputum, Tracheal Aspirate Gram Stain - Final 04/19/22 20:06 Sputum, Tracheal Aspirate Respiratory Culture - Final Mixed normal respiratory kolton. No Streptococcus pneumoniae, beta-hemolytic Streptococcus or Staphylococcus aureus isolated. 04/19/22 21:35 Mucosa - Nasopharyngeal Respiratory Panel (PCR) - Final 04/19/22 21:35 Mucosa - Nasopharyngeal Influenza Types A,B Direct FA (TARYN) - Final 04/19/22 18:20 Nasal Secretion SARS-CoV-2 Antigen (Rapid) - Final Physical Exam Const alert, oriented x3, no apparent distress and well nourished Constitutional Narrative: Morbidly obese, young middle-aged white male, lying in bed, watching television, occupational therapy professor at the bedside putting lotion on his legs, very pleasant, appears comfortable and nontoxic HEENT head/scalp atraumatic and moist oral mucous membranes HEENT Narrative: Mallampati 4, no thrush Head and Scalp: normocephalic Resp normal respiratory effort, no retractions, no use of accessory muscles and clear to auscultation bilaterally Resp Narrative: Diminished, breath sounds are distant but no adventitious sounds noted-exam is limited by body habitus Auscultation: Negative for rales, rhonchi or wheezes Cardio regular rate, regular rhythm, S1 normal heart sound, S2 normal heart sound, no murmurs, no rub, no gallops, no clicks and no JVD GI normal to inspection, nondistended, normoactive bowel sounds, soft to palpation and non-tender GI Narrative: Large protuberant abdomen, pannus was evaluated fully today and no signs of erythema or infection-decreased abdominal anasarca Extremity Extremity Narrative: Patient was still significant pitting edema in bilateral lower extremities distal lower extremity skin is compressible without pitting for the first time today posteriorly still some pitting anteriorly swelling is overall much improved Neuro oriented x3, moves all extremities and no focal motor deficits Speech: speech normal Psych affect normal Psych Narrative: Very pleasant Assessment & Plan Assessment/Plan (1) Acute respiratory failure with hypoxia and hypercapnia: (2) Transaminitis: (3) Elevated TSH: (4) Cellulitis: (5) Dilated aortic root: (6) Elevated blood pressure reading: (7) Debility: PLAN: Plan Acute hypoxic and hypercapnic respiratory failure -This is SYMONE untreated/cor pulmonale/obesity hypoventilation syndrome -Suspect baseline hypercapnic respiratory failure however no documentation of this -Required intubation prior to admission with initial pH of 7.08 and a PCO2 of 136--> was able to be extubated quite quickly -Continue Lasix drip--> renal function remained stable -Continue fluid restricted diet to 1750 daily -Continue sodium restricted diet to 2 g daily -Patient down 30.121 L for his hospital stay and weight is down almost 20 kg -Renal function remained stable so we will continue aggressive diuresis -Echocardiogram performed and shows an EF of 55% with mildly to moderately dilated aortic root and moderate concentric LVH -Pulmonary/CCM following-appreciate input -Dietitian has been consulted and is following for recommendations with a low sodium diet -Will need trilogy at discharge--> settings are 21/02 -We will need to check room air pulse ox when she is optimized from a heart failure standpoint to assess for obesity hypoventilation syndrome--> I need to wait to do this until he is completely medically optimized from a diuresis standpoint -Potassium remains normal however with aggressive diuresis will give 60 mill equivalents potassium is 3.6 today and I expect to drop with more aggressive diuresis -We will also repeat magnesium level in a.m. Fevers -Etiology is unclear -Thus far infectious work-up has been negative -Off antibiotics -Last true fever was overnight on 05/24/2022 -Check bilateral lower extremity Dopplers -ID is following Dilated aortic root -4.4 cm on echocardiogram -Will need outpatient follow-up after discharge -Could consider CTA for better examination of aortic root as an outpatient -Overall blood pressure control has been within goal range ideally less than 130/80 Hypertension -Continue Coreg 12.5 mg p.o. twice daily -Add lisinopril 10 mg daily -Blood pressures are a bit above goal range -Blood pressure remains in goal ranges of 130/80 or less Hepatosteatosis -GI referral at discharge -Suspect related to severe dysmetabolic syndrome Elevated TSH -TSH was 8.81 -Free T4 was within normal limits -Euthyroid sick syndrome Debility -Patient has significant weakness -Plan is for discharge to skilled facility per OT/PT recommendations -Pre-CERT was initiated on 04/25/2022 Morbid Obesity -BMI 73.7 -Recommend wgt loss -Complicates treatment, prognosis, and outcomes DVT prophylaxis -Continue Lovenox 40 mg BID Code status -Full Code Charges/Coding Visit Charges Inpatient E&M: 83674 Subs Hosp L2
--- NOTE | 2022-04-27 11:05 | VDLE_ITS ---
Reason For Study: Swelling RIGHT LEFT GSV is normal. GSV is normal. CFV is compressible, spontaneous, phasic, CFV is compressible, spontaneous, phasic, competent and demonstrates normal competent, and demonstrates normal augmentation. augmentation. FV is compressible, spontaneous, phasic, FV is compressible, spontaneous, phasic, competent and demonstrates normal competent and demonstrates normal augmentation. augmentation. POP V is compressible, spontaneous, phasic, POP V is compressible, spontaneous, phasic, competent and demonstrates normal competent and demonstrates normal augmentation. augmentation. T/P Trunk is compressible. T/P Trunk is compressible. PTV is compressible. PTV is compressible. RT PerV is compressible. LT PerV is compressible. Procedure Exam performed portable in patient room. Limited views were obtained due to body habitus, swelling and patient positioning. Calf vessels were viewed in segments. A preliminary report was called and/or faxed to [facility]. VL/Venous Duplex US - Aditya Extrem Interpretation Summary Deep veins of the bilateral lower extremities are patent and compressible segme ntally. There is no evidence of bilateral lower extremity deep vein thrombosis. The bilateral great saphenous veins appear patent and compressible segmentally. Ordering Physician: Shabana Hernandez Referring Physician: N/A Performed By: Salvatore Morrison RVT
[2022-04-27] MEDS: Lisinopril 10 MG Tablet PO (12:01)
[2022-04-27 13:30] LABS: Anion Gap 3 (5-15); BUN 20 mg/dL (7-18); BUN/Creat Ratio 21.8 RATIO (10-20); Calcium,Total 9.3 mg/dL (8.5-10.1); Chloride 92 mmol/L (98-107); Creatinine, Serum 0.92 mg/dL (0.70-1.30); EST Glomerular Filtration Rate 99 mL/min (>60); Est Glom Filt Rate - Afr Amer 120 mL/min (>60); Estimated Creatinine Clearance 101.13 ml/min; Glucose 112 mg/dL (74-106); Potassium 3.3 mmol/L (3.5-5.1); Sodium Level 138 mmol/L (136-145)
[2022-04-27] MEDS: Acetaminophen 325 MG Tablet 650 MG PO (21:46)
[2022-04-28] VITALS (11 sets, daily range): BP systolic 98–136; BP diastolic 51–87; PULSE 77–94; RESP 12–23; TEMP 36.3–37.8; O2SAT 92–97; BMI 69.5
[2022-04-28] MEDS: Ipratropium/Albuterol Sulfate 3 ML AMPUL.NEB INHALATION ×3 (01:48→19:28)
[2022-04-28] MEDS: Nystatin Powder 15gm Bottle 1 APPLIC TOPICAL ×3 (05:18→20:54)
[2022-04-28 06:37] LABS: Absolute Lymphocyte Count 1.63 X10^3/uL (0.83-4.51); Absolute Neutrophil Count 6.1 X10^3/uL (2.0-7.7); Basophil# 0.05 X10^3/uL; Basophil% 0.5 % (0-1); Eosinophil# 0.35 X10^3/uL; Eosinophils% 3.6 % (0-5); Hematocrit 41.7 % (40-54); Hemoglobin 12.7 g/dL (13.0-16.5); Lymphocyte # 1.63 X10^3/ul (0.83-4.51); Lymphocyte % 16.7 % (19-41); Mean Corp Hgb Conc 30.5 g/dL (32-36); Mean Corpuscular Hgb 28.5 pg (27.0-32.0); Mean Corpuscular Volume 93.5 fL (80-94); Mean Platelet Vol. 10.3 fl (6.2-12.0); Monocyte# 1.58 X10^3/uL; Monocyte% 16.2 % (0-10); NRBC Flagged by Analyzer 0 % (0-5); Neutrophil # 6.11 X10^3/uL (2.7-7.7); Neutrophil % 62.6 % (47-70); POSITIVE DIFFERENTIAL YES; Platelet Count 333 K/mm3 (150-450); RBC Distribution Width CV 14.1 % (11.6-14.6); Red Blood Count 4.46 M/mm3 (4.6-6.2); White Blood Count 9.8 K/mm3 (4.4-11.0)
[2022-04-28 06:46] LABS: Differential Indicated SCAN CRITERIA MET
[2022-04-28 07:03] LABS: Anion Gap 6 (5-15); BUN 29 mg/dL (7-18); BUN/Creat Ratio 28.7 RATIO (10-20); Calcium,Total 9.2 mg/dL (8.5-10.1); Chloride 92 mmol/L (98-107); Cholesterol 132 mg/dL (200); Creatinine, Serum 1.01 mg/dL (0.70-1.30); EST Glomerular Filtration Rate 89 mL/min (>60); Est Glom Filt Rate - Afr Amer 108 mL/min (>60); Estimated Creatinine Clearance 92.12 ml/min; Glucose 115 mg/dL (74-106); High Density Lipoprotein 30 mg/dL; Potassium 3.6 mmol/L (3.5-5.1); Sodium Level 138 mmol/L (136-145); Triglycerides 174 mg/dL; Very Low Density Lipoprotein 35 mg/dL (5-40)
[2022-04-28 07:11] LABS: Differential Comment SCANNED
[2022-04-28] MEDS: Potassium Chloride Oral Tablet 20 MEQ 40 MEQ PO (10:53)
[2022-04-28] MEDS: Magnesium Chloride 64 MG Delay Rel.Tablet 128 MG PO ×2 (10:54→20:53)
[2022-04-28] MEDS: Carvedilol 12.5 MG Tablet PO ×2 (10:54→20:54)
[2022-04-28] MEDS: Enoxaparin 40 MG/0.4 ML Syringe SC ×2 (10:54→20:53)
[2022-04-28] MEDS: Lisinopril 10 MG Tablet PO (10:54)
--- NOTE | 2022-04-28 12:13 | PN.HOSP_ITS ---
Reason for Visit Reason for Visit: Mental status change Subjective Subjective No significant issues overnight. Patient up to a chair and is feeling well overall. Remains on 4 L nasal cannula. Has overall diuresed 35.369 L for his hospital stay and is down about 20 kg. Objective Data Objective Data Vital Signs: Vital Signs Temp Pulse Resp BP Pulse Ox O2 Del Method O2 Flow Rate 97.4 F L 90 18 136/64 H 94 Nasal Cannula 4 04/28/22 10:51 04/28/22 10:51 04/28/22 10:51 04/28/22 10:51 04/28/22 10:51 04/28/22 10:51 04/28/22 10:51 FiO2 40 04/28/22 05:16 Oxygen Flow Rate (L/min) 4 Oxygen Delivery Method Nasal Cannula Weight: 201 kg Body Mass Index (BMI) 69.5 Intake & Output: Intake and Output for Last 24 Hours 04/26/22 04/27/22 04/28/22 23:59 23:59 23:59 Intake Total 34 / 334 1902.00 / 1902.00 268.87 / 268.87 Output Total 7750 / 49394 23096 / 69785 300 / 300 Balance -7716 / -10698 -9348.00 / -9348.00 -31.13 / -31.13 Lab / Micro Data Result Diagrams: 04/28/22 06:12 04/28/22 06:12 Labs: Laboratory Results - last 24 hr 04/27/22 13:00: Sodium 138, Potassium 3.3 L, Chloride 92 L, Carbon Dioxide 43.0 H, Anion Gap 3 L, BUN 20 H, Creatinine 0.92, Estim Creat Clear Calc 101.13, Est GFR (MDRD) Af Amer 120, Est GFR (MDRD) Non-Af 99, BUN/Creatinine Ratio 21.8 H, Glucose 112 H, Calcium 9.3 04/28/22 06:12: Sodium 138, Potassium 3.6, Chloride 92 L, Carbon Dioxide 40.0 H, Anion Gap 6, BUN 29 H, Creatinine 1.01, Estim Creat Clear Calc 92.12, Est GFR (MDRD) Af Amer 108, Est GFR (MDRD) Non-Af 89, BUN/Creatinine Ratio 28.7 H, Glucose 115 H, Calcium 9.2, Triglycerides 174, Cholesterol 132, LDL Cholesterol 67, VLDL Cholesterol 35, HDL Cholesterol 30 L 04/28/22 06:12: WBC 9.8, RBC 4.46 L, Hgb 12.7 L, Hct 41.7, MCV 93.5, MCH 28.5, MCHC 30.5 L, RDW Std Deviation 48.0 H, RDW Coeff of [place] 14.1, Plt Count 333, MPV 10.3, Immature Gran % (Auto) 0.400, Neut % (Auto) 62.6, Lymph % (Auto) 16.7 L, [place] % (Auto) 16.2 H, Eos % (Auto) 3.6, Baso % (Auto) 0.5, Absolute Neuts (auto) 6.1, Absolute Lymphs (auto) 1.63, Nucleated RBC % 0, Differential Comment SCANNED Micro: Microbiology 04/26/22 12:30 Urine Catheter - Catheter Urine Culture - Final Culture exhibits no growth. 04/20/22 05:05 Blood Culture (Wb) - Right Hand Blood Culture - Final No growth in 5 days. 04/20/22 05:15 Blood Culture (Wb) - Chest Bacteria Detection (PCR) - Final Staphylococcus epidermidis 04/20/22 05:15 Blood Culture (Wb) - Chest Blood Culture - Final Coag Negative Staph 04/19/22 20:06 Sputum, Tracheal Aspirate Gram Stain - Final 04/19/22 20:06 Sputum, Tracheal Aspirate Respiratory Culture - Final Mixed normal respiratory kolton. No Streptococcus pneumoniae, beta-hemolytic Streptococcus or Staphylococcus aureus isolated. 04/19/22 21:35 Mucosa - Nasopharyngeal Respiratory Panel (PCR) - Final 04/19/22 21:35 Mucosa - Nasopharyngeal Influenza Types A,B Direct FA (TARYN) - Final 04/19/22 18:20 Nasal Secretion SARS-CoV-2 Antigen (Rapid) - Final Physical Exam Const alert, oriented x3, no apparent distress and well nourished Constitutional Narrative: Morbidly obese, young middle-aged white male, sitting up in chair at the bedside, watching television, emergency medicine physician assistant at bedside putting lotion on him and helping him get a bath, appears comfortable nontoxic, remains on 4 L HEENT head/scalp atraumatic and moist oral mucous membranes HEENT Narrative: Mallampati 4, no thrush Resp normal respiratory effort, no retractions, no use of accessory muscles and clear to auscultation bilaterally Resp Narrative: Diminished, breath sounds are distant but no adventitious sounds noted-exam is limited by body habitus Auscultation: Negative for rales, rhonchi or wheezes Cardio regular rate, regular rhythm, S1 normal heart sound, S2 normal heart sound, no m urmurs, no rub, no gallops and no clicks GI normal to inspection, nondistended, normoactive bowel sounds, soft to palpation and non-tender GI Narrative: Large protuberant abdomen Extremity Extremity Narrative: Bilateral lower extremity pitting edema remains however tissue is much softer with aggressive diuresis, no cyanosis or clubbing Skin Skin Narrative: Bilateral lower extremity erythema consistent with chronic venous stasis, pannus as noted above Neuro oriented x3, CN's II-XII intact bilaterally, moves all extremities and no focal motor deficits Neuro Narrative: Marked generalized weakness however patient does feel his weakness is improving Speech: speech normal Psych affect normal Psych Narrative: Very pleasant Assessment & Plan Assessment/Plan (1) Acute respiratory failure with hypoxia and hypercapnia: (2) Transaminitis: (3) Elevated TSH: (4) Cellulitis: (5) Dilated aortic root: (6) Elevated blood pressure reading: (7) Debility: PLAN: Plan Acute hypoxic and hypercapnic respiratory failure -This is SYMONE untreated/cor pulmonale/obesity hypoventilation syndrome -Suspect baseline hypercapnic respiratory failure however no documentation of this -Required intubation prior to admission with initial pH of 7.08 and a PCO2 of 136--> was able to be extubated quite quickly -Continue Lasix drip but will decrease rate from 40-10 with slight jump in BUN and creatinine -Continue fluid restricted diet to 1750 daily--will need to continue at discharge and patient has met with dietitian--> outpatient follow-up to be arranged -Continue sodium restricted diet to 2 g daily--> will need to continue at discharge -Patient down 35.369 L for his hospital stay and weight is down 20 kg -Renal function remained stable so we will continue aggressive diuresis -Echocardiogram performed and shows an EF of 55% with mildly to moderately dilated aortic root and moderate concentric LVH -Pulmonary/CCM following-appreciate input -Dietitian has been consulted and is following for recommendations with a low sodium diet -Will need trilogy at discharge--> settings are 21/02 -We will need to check room air pulse ox when she is optimized from a heart failure standpoint to assess for obesity hypoventilation syndrome--> I need to wait to do this until he is completely medically optimized from a diuresis standpoint Fevers -Etiology is unclear -Thus far infectious work-up has been negative -Off antibiotics -Last true fever was overnight on 04/26/2022 at 2:40 AM -Bilateral lower extremity Dopplers are pending to rule out etiology for fever -ID is following Dilated aortic root -4.4 cm on echocardiogram -Will need outpatient follow-up after discharge -Could consider CTA for better examination of aortic root as an outpatient -Overall blood pressure control has been within goal range ideally less than 130/80 Hypertension -Continue Coreg 12.5 mg p.o. twice daily -Continue lisinopril 10 mg daily -Blood pressures since the addition of lisinopril on 04/27/2022 are much improved -Blood pressure remains in goal ranges of 130/80 or less Hepatosteatosis -GI referral at discharge -Suspect related to severe dysmetabolic syndrome Elevated TSH -TSH was 8.81 -Free T4 was within normal limits -Euthyroid sick syndrome Debility -Patient has significant weakness -Plan is for discharge to skilled facility per OT/PT recommendations -Pre-CERT was initiated on 04/25/2022 --> anticipate patient should be able to discharge in the next 24 to 48 hours if pre-CERT obtained Morbid Obesity -BMI 73.7 -Recommend wgt loss -Complicates treatment, prognosis, and outcomes DVT prophylaxis -Continue Lovenox 40 mg BID Code status -Full Code Disposition: Anticipate discharge in the next 24 to 48 hours if pre-CERT to be obtained. We have now been able to back off on his aggressive diuresis and patient is significantly negative for his hospitalization. Will need transition to orals. Charges/Coding Visit Charges Inpatient E&M: 13741 Subs Hosp L2
[2022-04-28 12:33] LABS: Anion Gap 8 (5-15); BUN 30 mg/dL (7-18); BUN/Creat Ratio 30.2 RATIO (10-20); Calcium,Total 8.9 mg/dL (8.5-10.1); Chloride 92 mmol/L (98-107); Creatinine, Serum 0.99 mg/dL (0.70-1.30); EST Glomerular Filtration Rate 91 mL/min (>60); Est Glom Filt Rate - Afr Amer 110 mL/min (>60); Estimated Creatinine Clearance 93.98 ml/min; Glucose 113 mg/dL (74-106); Potassium 3.8 mmol/L (3.5-5.1); Sodium Level 140 mmol/L (136-145)
[2022-04-28 14:23] LABS: Anion Gap 5 (5-15); BUN 27 mg/dL (7-18); Calcium,Total 9.2 mg/dL (8.5-10.1); Chloride 93 mmol/L (98-107); Creatinine, Serum 0.82 mg/dL (0.70-1.30); EST Glomerular Filtration Rate 113 mL/min (>60); Est Glom Filt Rate - Afr Amer 137 mL/min (>60); Estimated Creatinine Clearance 113.47 ml/min; Glucose 101 mg/dL (74-106); Potassium 3.8 mmol/L (3.5-5.1); Sodium Level 137 mmol/L (136-145)
[2022-04-28] MEDS: Acetaminophen 325 MG Tablet 650 MG PO (20:53)
[2022-04-29] VITALS (11 sets, daily range): BP systolic 106–145; BP diastolic 48–95; PULSE 73–85; RESP 12–21; TEMP 36.8–37.3; O2SAT 93–97; BMI 69.9
[2022-04-29] MEDS: Ipratropium/Albuterol Sulfate 3 ML AMPUL.NEB INHALATION ×4 (01:33→19:23)
[2022-04-29] MEDS: Nystatin Powder 15gm Bottle 1 APPLIC TOPICAL ×3 (05:32→22:04)
[2022-04-29 08:07] LABS: Anion Gap 11 (5-15); BUN 47 mg/dL (7-18); BUN/Creat Ratio 20.6 RATIO (10-20); Calcium,Total 9.1 mg/dL (8.5-10.1); Chloride 88 mmol/L (98-107); Creatinine, Serum 2.28 mg/dL (0.70-1.30); EST Glomerular Filtration Rate 35 mL/min (>60); Est Glom Filt Rate - Afr Amer 42 mL/min (>60); Estimated Creatinine Clearance 40.81 ml/min; Glucose 112 mg/dL (74-106); Magnesium 2.1 mg/dL (1.6-2.6); Phosphorus 5.6 mg/dL (2.5-4.9); Potassium 3.7 mmol/L (3.5-5.1); Sodium Level 134 mmol/L (136-145)
[2022-04-29] MEDS: Carvedilol 12.5 MG Tablet PO ×2 (08:30→22:04)
[2022-04-29] MEDS: Enoxaparin 40 MG/0.4 ML Syringe SC ×2 (08:30→22:03)
[2022-04-29] MEDS: Magnesium Chloride 64 MG Delay Rel.Tablet 128 MG PO ×2 (08:30→22:03)
--- NOTE | 2022-04-29 08:47 | CASEMGMT ---
GERMAN sent updates to Rowena Hayes via [employer]. Zhane Abarca FILLING AND PACKING SUPERVISOR DRAFTING SUPERVISOR
--- NOTE | 2022-04-29 09:53 | PN.HOSP_ITS ---
Reason for Visit Reason for Visit: Diagnoses Thoracic aortic ectasia (04/19/22) Acute respiratory failure with hypoxia (04/19/22) Acute respiratory failure with hypercapnia (04/19/22) Cellulitis, unspecified (04/19/22) Elevated blood-pressure reading, without diagnosis of hypertension (04/19/22) Other malaise (04/19/22) Elevation of levels of liver transaminase levels (04/19/22) Other specified abnormal findings of blood chemistry (04/19/22) Subjective Subjective Breathing slowly continues to improve, reports eating and drinking fair but did have creatinine bump this a.m. and Lasix drip stopped. Objective Data Objective Data Vital Signs: Vital Signs Temp Pulse Resp BP Pulse Ox O2 Del Method O2 Flow Rate 99.1 F 85 21 H 106/48 L 93 Nasal Cannula 4 04/29/22 04:21 04/29/22 07:44 04/29/22 07:44 04/29/22 04:21 04/29/22 07:44 04/29/22 08:25 04/29/22 08:25 FiO2 40 04/29/22 04:45 Oxygen Flow Rate (L/min) 4 Oxygen Delivery Method Nasal Cannula Weight: 202.3 kg Body Mass Index (BMI) 69.9 Intake & Output: Intake and Output for Last 24 Hours 04/27/22 04/28/22 04/29/22 23:59 23:59 23:59 Intake Total 1902.00 / 1902.00 988.87 / 1348.87 600 / 600 Output Total 48308 / 43579 3050 / 3300 350 / 350 Balance -9348.00 / -9348.00 -2061.13 / -1951.13 250 / 250 Lab / Micro Data Result Diagrams: 04/28/22 06:12 04/29/22 07:00 Labs: Laboratory Results - last 24 hr 04/28/22 06:12: Sodium 140, Potassium 3.8, Chloride 92 L, Carbon Dioxide 40.0 H, Anion Gap 8, BUN 30 H, Creatinine 0.99, Estim Creat Clear Calc 93.98, Est GFR (MDRD) Af Amer 110, Est GFR (MDRD) Non-Af 91, BUN/Creatinine Ratio 30.2 H, Glucose 113 H, Calcium 8.9 04/28/22 14:00: Sodium 137, Potassium 3.8, Chloride 93 L, Carbon Dioxide 39.0 H, Anion Gap 5, BUN 27 H, Creatinine 0.82, Estim Creat Clear Calc 113.47, Est GFR (MDRD) Af Amer 137, Est GFR (MDRD) Non-Af 113, BUN/Creatinine Ratio 33.0 H, Glucose 101, Calcium 9.2 04/29/22 07:00: Sodium 134 L, Potassium 3.7, Chloride 88 L, Carbon Dioxide 35.0 H, Anion Gap 11, BUN 47 H, Creatinine 2.28 H, Estim Creat Clear Calc 40.81, Est GFR (MDRD) Af Amer 42 L, Est GFR (MDRD) Non-Af 35 L, BUN/Creatinine Ratio 20.6 H , Glucose 112 H, Calcium 9.1, Phosphorus 5.6 H, Magnesium 2.1 Micro: Microbiology 04/26/22 12:00 Blood Culture (Wb) - Left Hand Blood Culture - Preliminary No growth in 48 hours. 04/26/22 11:50 Blood Culture (Wb) - Pic Blood Culture - Preliminary No growth in 48 hours. 04/26/22 12:30 Urine Catheter - Catheter Urine Culture - Final Culture exhibits no growth. 04/20/22 05:05 Blood Culture (Wb) - Right Hand Blood Culture - Final No growth in 5 days. 04/20/22 05:15 Blood Culture (Wb) - Chest Bacteria Detection (PCR) - Final Staphylococcus epidermidis 04/20/22 05:15 Blood Culture (Wb) - Chest Blood Culture - Final Coag Negative Staph 04/19/22 20:06 Sputum, Tracheal Aspirate Gram Stain - Final 04/19/22 20:06 Sputum, Tracheal Aspirate Respiratory Culture - Final Mixed normal respiratory kolton. No Streptococcus pneumoniae, beta-hemolytic Streptococcus or Staphylococcus aureus isolated. 04/19/22 21:35 Mucosa - Nasopharyngeal Respiratory Panel (PCR) - Final 04/19/22 21:35 Mucosa - Nasopharyngeal Influenza Types A,B Direct FA (TARYN) - Final 04/19/22 18:20 Nasal Secretion SARS-CoV-2 Antigen (Rapid) - Final Radiography Diagnostic Testing: Radiology Impression Venous Doppler Study 04/27/22 11:05 Interpretation Summary Deep veins of the bilateral lower extremities are patent and compressible segmentally. There is no evidence of bilateral lower extremity deep vein thrombosis. The bilateral great saphenous veins appear patent and compressible segmentally. Ordering Physician: Shabana Hernandez Referring Physician: N/A Performed By: Salvatore Morrison RVT Physical Exam Narrative General: Alert, oriented, no apparent distress HEENT: Atraumatic, normocephalic Eyes: Anicteric, normal conjunctiva, extraocular movements grossly intact Neck: Supple Respiratory: Diminished breath sounds at the bases, normal respiratory effort Cardiovascular: Regular rate and rhythm GI: Soft, nontender, nondistended Extremities: No extremity nonpitting edema Musculoskeletal: Moving all extremities Neuro: No overt focal neurological deficits Skin: No overt lesions Psych: Cooperative Assessment & Plan Assessment/Plan (1) Acute respiratory failure with hypoxia and hypercapnia: PLAN: Plan #Acute hypoxic and hypercapnic respiratory failure -Secondary to untreated SYMONE/cor pulmonale/obesity hypoventilation syndrome -Required intubation prior to admission with initial pH of 7.08 and a PCO2 of 136--> was able to be extubated quite quickly -Had been on a Lasix drip and was down 35 L for his hospital stay and is down 20 kg -Kidney function bump today so Lasix drip held but fluids were not given -Echocardiogram performed and shows an EF of 55% with mildly to moderately dilated aortic root and moderate concentric LVH -Low-sodium diet -Will need trilogy at discharge--> settings are 21/02 -We will need to check room air pulse ox when she is optimized from a heart failure standpoint to assess for obesity hypoventilation syndrome, pending resp and fluid status may be able to complete tomorrow #Acute kidney injury -Possibly prerenal, Lasix drip held -Given significant diuresis hesitant to give any fluids, repeat BMP in the evening -Hold lisinopril #Fevers -Etiology is unclear -Thus far infectious work-up has been negative -Off antibiotics -Last true fever was overnight on 04/26/2022 at 2:40 AM -Bilateral lower extremity Dopplers are pending to rule out etiology for fever- negative -ID followed but given negative blood cultures and stable off antibiotics they have signed off #Dilated aortic root -4.4 cm on echocardiogram -Will need outpatient follow-up after discharge -Could consider CTA for better examination of aortic root as an outpatient -Overall blood pressure control has been within goal range ideally less than 130/80 #Hypertension -Continue Coreg 12.5 mg p.o. twice daily - holding lisinopril given LEVAR #hepatosteatosis -GI referral at discharge -Suspect related to severe dysmetabolic syndrome #Elevated TSH -TSH was 8.81 -Free T4 was within normal limits -Euthyroid sick syndrome #Debility -Patient has significant weakness -Plan is for discharge to skilled facility per OT/PT recommendations -Pre-CERT was initiated on 04/25/2022 --> anticipate patient should be able to discharge in the next 24 to 48 hours if pre-CERT obtained #Morbid Obesity -BMI 70 -Recommend wgt loss -Complicates treatment, prognosis, and outcomes DVT prophylaxis -Continue Lovenox 40 mg BID Time spent in the patient's overall evaluation,decision-making process, review of diagnostic data, adjustment of management, discussion with other providers, n ursing nursing and ancillary staff involved in patient's care documentation, 30 minutes Charges/Coding Visit Charges Inpatient E&M: 07587 Subs Hosp L2
[2022-04-29] MEDS: Lisinopril 10 MG Tablet PO (10:45)
--- NOTE | 2022-04-29 11:47 | CASEMGMT ---
Rowena Hayes received pre-cert. Physician rounded and patient is not ready for d/c today as his creatinine went up. SW notified Malachishaan Hayes patient is not ready today. Zhane Abarca MSW CARLOS
--- NOTE | 2022-04-29 14:54 | PCM.PN.ID ---
Physical Exam Narrative Fever resolved, feeling better, no n/v/d Const alert and no apparent distress Resp normal air movement and clear to auscultation bilaterally Cardio regular rate and regular rhythm GI soft to palpation, non-tender and non-distended Skin no rashes or lesions noted ID ID: Route of nutrition/ use of supplements: [] Nutritional Intake: [] IV Site: [] [place]field Catheter: [] Assessment & Plan Assessment/Plan (1) Acute respiratory failure with hypoxia and hypercapnia: PLAN: Bcx neg. No further fever here. MRSA pcr neg. Stable off abx. Will sign off
[2022-04-29 19:40] LABS: Anion Gap 9 (5-15); BUN 53 mg/dL (7-18); BUN/Creat Ratio 34.2 RATIO (10-20); Calcium,Total 9.5 mg/dL (8.5-10.1); Chloride 88 mmol/L (98-107); Creatinine, Serum 1.55 mg/dL (0.70-1.30); EST Glomerular Filtration Rate 54 mL/min (>60); Est Glom Filt Rate - Afr Amer 66 mL/min (>60); Estimated Creatinine Clearance 60.03 ml/min; Glucose 123 mg/dL (74-106); Potassium 3.8 mmol/L (3.5-5.1); Sodium Level 133 mmol/L (136-145)
[2022-04-30] VITALS (7 sets, daily range): BP systolic 108–119; BP diastolic 52–62; PULSE 75–80; RESP 12–24; TEMP 36.6; O2SAT 91–99; BMI 70.4
[2022-04-30] MEDS: Ipratropium/Albuterol Sulfate 3 ML AMPUL.NEB INHALATION ×2 (01:15→07:05)
[2022-04-30] MEDS: Nystatin Powder 15gm Bottle 1 APPLIC TOPICAL ×2 (04:06→14:23)
[2022-04-30 05:50] LABS: Absolute Neutrophil Count 5.5 X10^3/uL (2.0-7.7); Basophil# 0.06 X10^3/uL; Basophil% 0.7 % (0-1); Eosinophil# 0.53 X10^3/uL; Eosinophils% 5.9 % (0-5); Hematocrit 38.4 % (40-54); Hemoglobin 11.9 g/dL (13.0-16.5); Lymphocyte % 16.8 % (19-41); Mean Corpuscular Hgb 27.8 pg (27.0-32.0); Mean Corpuscular Volume 89.7 fL (80-94); Mean Platelet Vol. 10.7 fl (6.2-12.0); Monocyte% 14.6 % (0-10); NRBC Flagged by Analyzer 0 % (0-5); Neutrophil # 5.49 X10^3/uL (2.7-7.7); Neutrophil % 61.4 % (47-70); Platelet Count 421 K/mm3 (150-450); RBC Distribution Width SD 45.9 fl (35.1-43.9); Red Blood Count 4.28 M/mm3 (4.6-6.2); White Blood Count 8.9 K/mm3 (4.4-11.0)
[2022-04-30 06:23] LABS: ALB/GLOB Ratio 0.5 RATIO (0.9-2.4); AST(SGOT) 22 U/L (15-37); Alanine Aminotransfer ALT/SGPT 25 U/L (16-61); Albumin, Serum 2.3 g/dL (3.2-5.0); Alkaline Phosphatase 58 U/L (45-117); Anion Gap 8 (5-15); BUN 64 mg/dL (7-18); BUN/Creat Ratio 33.2 RATIO (10-20); Calcium,Total 9.2 mg/dL (8.5-10.1); Chloride 88 mmol/L (98-107); Creatinine, Serum 1.93 mg/dL (0.70-1.30); EST Glomerular Filtration Rate 42 mL/min (>60); Est Glom Filt Rate - Afr Amer 51 mL/min (>60); Estimated Creatinine Clearance 48.21 ml/min; Globulin 4.3 g/dL (2.2-4.2); Glucose 111 mg/dL (74-106); Potassium 3.7 mmol/L (3.5-5.1); Protein, Total 6.6 g/dL (6.4-8.2); Sodium Level 129 mmol/L (136-145)
[2022-04-30] MEDS: Carvedilol 12.5 MG Tablet PO (11:05)
[2022-04-30] MEDS: Magnesium Chloride 64 MG Delay Rel.Tablet 128 MG PO (11:05)
[2022-04-30] MEDS: Enoxaparin 40 MG/0.4 ML Syringe SC (11:05)
[2022-04-30] MEDS: Furosemide 40 MG Tablet PO (11:09)
--- NOTE | 2022-04-30 11:14 | CASEMGMT ---
GERMAN let Rowena Hayes know that patient is getting another CMP later today and if it is okay patient could come today. SW let them know that if it is not better he won't go today. GERMAN asked when patient's pre-cert expires. Zhane Abarca GRINDING OPERATOR CARLOS
--- NOTE | 2022-04-30 12:47 | CASEMGMT ---
Patient's pre-cert is good through tomorrow, 05-01-22. Zhane Abarca DIE MECHANIC CARLOS
--- NOTE | 2022-04-30 12:53 | PN.HOSP_ITS ---
Reason for Visit Reason for Visit: Diagnoses Thoracic aortic ectasia (04/19/22) Acute respiratory failure with hypoxia (04/19/22) Acute respiratory failure with hypercapnia (04/19/22) Cellulitis, unspecified (04/19/22) Elevated blood-pressure reading, without diagnosis of hypertension (04/19/22) Other malaise (04/19/22) Elevation of levels of liver transaminase levels (04/19/22) Other specified abnormal findings of blood chemistry (04/19/22) Objective Data Objective Data Vital Signs: Vital Signs Temp Pulse Resp BP Pulse Ox O2 Del Method O2 Flow Rate 97.8 F 79 18 119/62 94 Nasal Cannula 3 04/30/22 11:00 04/30/22 11:00 04/30/22 11:00 04/30/22 11:00 04/30/22 11:00 04/30/22 11:00 04/30/22 11:00 FiO2 40 04/30/22 04:45 Oxygen Flow Rate (L/min) 3 Oxygen Delivery Method Nasal Cannula Weight: 203.6 kg Body Mass Index (BMI) 70.4 Intake & Output: Intake and Output for Last 24 Hours 04/28/22 04/29/22 04/30/22 23:59 23:59 23:59 Intake Total 988.87 / 1348.87 1586.75 / 1836.75 250 / 250 Output Total 3050 / 3300 1475 / 2350 950 / 950 Balance -2061.13 / -1951.13 111.75 / -513.25 -700 / -700 Lab / Micro Data Result Diagrams: 04/30/22 05:03 04/30/22 05:03 Labs: Laboratory Results - last 24 hr 04/29/22 19:21: Sodium 133 L, Potassium 3.8, Chloride 88 L, Carbon Dioxide 36.0 H, Anion Gap 9, BUN 53 H, Creatinine 1.55 H, Estim Creat Clear Calc 60.03, Est GFR (MDRD) Af Amer 66, Est GFR (MDRD) Non-Af 54 L, BUN/Creatinine Ratio 34.2 H, Glucose 123 H, Calcium 9.5 04/30/22 05:03: WBC 8.9, RBC 4.28 L, Hgb 11.9 L, Hct 38.4 L, MCV 89.7, MCH 27.8, MCHC 31.0 L, RDW Std Deviation 45.9 H, RDW Coeff of Zulma 14.0, Plt Count 421, MPV 10.7, Immature Gran % (Auto) 0.600, Neut % (Auto) 61.4, Lymph % (Auto) 16.8 L, [place] % (Auto) 14.6 H, Eos % (Auto) 5.9 H, Baso % (Auto) 0.7, Absolute Neuts (auto) 5.5, Absolute Lymphs (auto) 1.50, Nucleated RBC % 0 04/30/22 05:03: Sodium 129 L, Potassium 3.7, Chloride 88 L, Carbon Dioxide 33.0 H, Anion Gap 8, BUN 64 H, Creatinine 1.93 H, Estim Creat Clear Calc 48.21, Est GFR (MDRD) Af Amer 51 L, Est GFR (MDRD) Non-Af 42 L, BUN/Creatinine Ratio 33.2 H , Glucose 111 H, Calcium 9.2, Total Bilirubin 0.40, AST 22, ALT 25, Alkaline Phosphatase 58, Total Protein 6.6, Albumin 2.3 L, Globulin 4.3 H, Albumin/Globulin Ratio 0.5 L Micro: Microbiology 04/26/22 12:00 Blood Culture (Wb) - Left Hand Blood Culture - Preliminary No growth in 48 hours. 04/26/22 11:50 Blood Culture (Wb) - Pic Blood Culture - Preliminary No growth in 48 hours. 04/26/22 12:30 Urine Catheter - Catheter Urine Culture - Final Culture exhibits no growth. 04/20/22 05:05 Blood Culture (Wb) - Right Hand Blood Culture - Final No growth in 5 days. 04/20/22 05:15 Blood Culture (Wb) - Chest Bacteria Detection (PCR) - Final Staphylococcus epidermidis 04/20/22 05:15 Blood Culture (Wb) - Chest Blood Culture - Final Coag Negative Staph 04/19/22 20:06 Sputum, Tracheal Aspirate Gram Stain - Final 04/19/22 20:06 Sputum, Tracheal Aspirate Respiratory Culture - Final Mixed normal respiratory kolton. No Streptococcus pneumoniae, beta-hemolytic Streptococcus or Staphylococcus aureus isolated. 04/19/22 21:35 Mucosa - Nasopharyngeal Respiratory Panel (PCR) - Final 04/19/22 21:35 Mucosa - Nasopharyngeal Influenza Types A,B Direct FA (TARYN) - Final 04/19/22 18:20 Nasal Secretion SARS-CoV-2 Antigen (Rapid) - Final
[2022-04-30 13:35] LABS: Anion Gap 9 (5-15); BUN 62 mg/dL (7-18); BUN/Creat Ratio 41.1 RATIO (10-20); Calcium,Total 9.4 mg/dL (8.5-10.1); Chloride 91 mmol/L (98-107); Creatinine, Serum 1.51 mg/dL (0.70-1.30); EST Glomerular Filtration Rate 56 mL/min (>60); Est Glom Filt Rate - Afr Amer 68 mL/min (>60); Estimated Creatinine Clearance 61.62 ml/min; Glucose 120 mg/dL (74-106); Potassium 3.8 mmol/L (3.5-5.1); Sodium Level 132 mmol/L (136-145)
--- NOTE | 2022-04-30 14:15 | CHAPLAIN ---
Type of Pastoral Visit ___ Initial Visit _x__ Follow-up Visit ___ On-call Visit ___ General Patient Visit ___ Spiritual Assessment ___ Family Conference ___ Bereavement ___ Rapid Response ___ Code Blue ___ Other (describe below) Pastoral Care Referral From _x__ Patient ___ Family ___ Nurse ___ Physician ___ Household Appliance Repairer ___ Insecticide Maker ___ Other (describe below) Sacrament/Intervention _x__ Active listening ___ Anointing ___ Mandaeism ___ Bereavement ___ Communion ___ Ashlyn exploration ___ ___ Life review _x__ Prayer ___ Reconciliation ___ Sacrament of Sick _x__ Supportive presence ___ Wedding ___ Other (describe below) Pastoral Comments
--- NOTE | 2022-04-30 15:00 | TREXTCAR_ITS ---
Diet Diet Order/Speech Therapy: 04/21/22 13:25 Diet: Cardiac - Heart Healthy Is pt able to select menu?: Yes Fluid restriction:: 1750 mL Diet Comments: low sodium Routine Orders/Code Status Suppository Type: Dulcolax 10mg Suppository Frequency: Daily PRN O2 Liters per Minute: 3 O2 Frequency: Continuous Keep PO Greater than or Equal to (%): 92 Routine Lab Work: BMP (In AM ) Code Status: Full Code Wound(s) intergluteal cleft: Wound Type: fissure Therapies Physical Therapy: Eval and Treat Occupational Therapy: Eval and Treat Problem/Diagnosis (1) Acute respiratory failure with hypoxia and hypercapnia: Status: Acute Code(s): J96.01 - Acute respiratory failure with hypoxia; J96.02 - Acute respiratory failure with hypercapnia Plan #Acute hypoxic and hypercapnic respiratory failure #Acute kidney injury #Fevers #Dilated aortic root #Hypertension #hepatosteatosis #Elevated TSH #Debility #Morbid Obesity The 36-year-old male with a history of obstructive sleep apnea not on home CPAP who presented to [facility] 04/30/2022 with progressive lethargy. EMS arrived to his home and put him on oxygen and he was brought to the ED and was placed on BiPAP, initially was alert and oriented but became more lethargic and required intubation secondary to acute combined respiratory failure. His respiratory failure was felt to be combined untreated SYMONE, obesity hypoventilation syndrome, and cor pulmonale/volume overload. He improved fairly quickly from a respiratory standpoint and was extubated. He was put on a Lasix drip which continued to improve his respiratory status and he was down 35 L and 20 kg for the hospital stay. Continue to require BiPAP at bedtime and 3 L of O2 during the day but symptomatically improving. Echo obtained did show EF of 55% with mild to moderately dilated aortic root and moderate concentric LVH. During his hospitalization he also had fever of unknown origin but infectious work-up was negative, he was initially on antibiotics and was evaluated by infectious disease but given no etiology identified his antibiotics were discontinued. Patient was maintained on a Lasix drip with good diuresis however day prior to discharge had bump in BUN and creatinine and Lasix drip held and BMP trended, was restarted on 40 p.o. twice daily day of discharge and is in stable condition, can further monitor at SNF. Additionally goal was to obtain room air ABG to assess status and AA gradient for possible diagnosis of obesity hypoventilation syndrome so he could qualify for trilogy however unable to obtain ABG. DC to SNF on BiPAP at bedtime and prn (settings are 22/14 with a rate of 12 and FIO2 of 40%. High pressure alarm 30, low pressure alarm 2) and prior to discharge home can consider ABG on room air to see if he qualifies for trilogy. Would also recommend following up with pulmonology upon discharge, contact information will be provided. Discharge instructions as below: DISCHARGE INSTRUCTIONS PLEASE READ -Recommend checking BMP in the a.m. to assist with further adjustment of Lasix dosing -It will be important that he wears BiPAP at bedtime (settings are 22/14 with a rate of 12 and FIO2 of 40%. High pressure alarm 30, low pressure alarm 2) and prior to discharge home can consider ABG on room air to see if he qualifies for trilogy -Recommend daily weights -You were found to have a dilated aortic root of 4.4 cm on your echocardiogram, you may need a CTA as an outpatient for better evaluation, would recommend following up with cardiology upon discharge. Contact information provided -Due to the dilation seen it will be important to maintain blood pressure control with a goal less than 130/80 -You were also found to have fatty liver during your work-up and you would benefit from establishing care with gastroenterology upon discharge, contact information provided -You will be discharged on DuoNebs every 6 hours while awake as well as albuterol as needed and carvedilol 12.5 mg twice daily -Would recommend following up with pulmonology upon discharge as you are being discharged on oxygen and BiPAP and will need further follow-up and work-up -Please call your primary care provider's office upon discharge to schedule a hospital follow up within 1 week. -For any concerning signs or symptoms please call 911 or proceed to the nearest emergency department Allergies/Procedures Done in Hospital Allergies No Known Allergies Allergy (Verified 04/19/22 17:45) Procedures: 2-D Echocardiogram and Intubation Type of Care/Length of Stay Estimated LOS: More Than 30 Days Type of Care Needed: Skilled Rehab Potential: Good Prognosis: Good Additional Orders/Day of Discharge Day of Discharge: 04/30/22 Dietary and Speech Recommendations Dietitian Recommendations/Changes: Continue Cardiac / Low sodium diet w/ fluid restriction as ordered; will monitor renal labs and adjust diet as indicated Discharge Plan Admission Admit Date/Time: 04/19/22 20:09 Primary Reason for Your Visit: Mental Status Change Attending Provider: Agueda Plasencia Primary Care Provider: Care Physician,No Primary Consulting Providers: Agueda Plasencia ; Dom Tamayo ; Harish Benton ; Alen Son ; David Bautista ; Anibal March ; Tameka Marquez NP ; Shabana Hernandez Instructions Patient Instructions: Losing Weight for Heart Health, Lung Disease Healthy Weight, ED Sleep Apnea, Obstructive, Watch Your Weight Additional Instructions / Restrictions: DISCHARGE INSTRUCTIONS PLEASE READ -Recommend checking BMP in the a.m. to assist with further adjustment of Lasix dosing -Itwill be important that he wears BiPAP at bedtime (settings are 22/14 with a rate of 12 and FIO2 of 40%. High pressure alarm 30, low pressure alarm 2) and prior to discharge home can consider ABG on room air to see if he qualifies for trilogy -Recommend daily weights -You were found to have a dilated aortic root of 4.4 cm on your echocardiogram, you may need a CTA as an outpatient for better evaluation, would recommend following up with cardiology upon discharge. Contact information provided -Due to the dilation seen it will be important to maintain blood pressure control with a goal less than 130/80 -You were also found to have fatty liver during your work-up and you would benefit from establishing care with gastroenterology upon discharge, contact information provided -Would recommend following up with pulmonology upon discharge as you are being discharged on oxygen and BiPAP and will need further follow-up and work-up -I will also be very important for you to establish with a primary care physician prior to your discharge from the skilled rehab facility -For any concerning signs or symptoms please call 911 or proceed to the nearest emergency department Discharge Orders/Prescriptions Prescriptions: New furosemide 40 mg Tablet 40 mg PO BIDLX Qty: 30 0RF carvedilol 12.5 mg Tablet 12.5 mg PO BID Qty: 30 0RF ipratropium-albuterol 0.5 mg-3 mg(2.5 mg base)/3 mL Solution For Nebulization 3 ml inhalation Q6H.RT Qty: 0 0RF albuterol sulfate 2.5 mg /3 mL (0.083 %) Solution For Nebulization 2.5 mg inhalation Q2H PRN PRN (Reason: SOB/Wheezing) Qty: 0 0RF nystatin [Nyamyc] 100,000 unit/gram Powder 1 applic topical TID Qty: 0 0RF Protocol: *Topical Application Instructions APPLICATION INSTRUCTIONS: affected area Mag 64 64 mg Tablet,Delayed Release (Dr/Ec) 128 mg PO BID Qty: 0 0RF Referrals / Follow Up: Harish Benton MD [Med Staff - Active Staff] - Within 1 Month Francesco Benites MD [Med Staff - Active Staff] - Within 1 Month (ou were found to have a dilated aortic root of 4.4 cm on your echocardiogram, you may need a CTA as an outpatient for better evaluation, would recommend following up with cardiology upon discharge) FriendTamir DO [Med Staff - Active Staff] - Within 3 Months (for fatty liver disease) Care Physician,No Primary [Primary Care Provider] - NOT,DEFINED [Non-Staff] - Tameka Marquez NP, [facility] [Med Staff - Adv Practice Prof] - Disposition Disposition (needs filled in before D/C Order can be placed): [facility]
--- NOTE | 2022-04-30 15:21 | CASEMGMT ---
Patient is ready for discharge. SW notified RN and Rowena Hayes. PASRR was completed. SW called [facility] and arranged for patient to get picked up at 430 via wheelchair van. RN was notified. Await rest of orders. Zhane GONZALEZ
--- NOTE | 2022-04-30 15:50 | CASEMGMT ---
SW spoke with patient and his significant other. They are aware patient will be picked up at 430. Plan: d/c to [facility] under skilled level of care on a PASRR. [facility] will transport patient via wheelchair van. Zhane GONZALEZ
--- NOTE | 2022-04-30 16:05 | DS.PCM_ITS ---
Providers Date of Admission: 04/19/22 Date of Discharge: 04/30/22 Primary Care Physician: Shruthi Primary Care Phys Consultations 04/19/22 20:50 Consult: Circus Laborer / Pulmonary Medicine Routine Consulting Provider: [facility] Reason for Consult: Vent management, acute combined respiratory failure EMERGENT Consult: No Notified: Yes Date Notified: 04/19/22 Time Notified: 20:50 Method of Notification: Text 04/22/22 08:33 Consult: Infectious Disease Routine Consulting Provider: Dom Tamayo Reason for Consult: possible GP bacteremia EMERGENT Consult: No Notified: Yes Date Notified: 04/22/22 Time Notified: 09:00 Method of Notification: Answering Service Reason For Visit: ACUTE COMBINED RESP FAILURE Diagnosis Discharge Diagnosis (1) Acute respiratory failure with hypoxia and hypercapnia: Status: Acute Code(s): J96.01 - Acute respiratory failure with hypoxia; J96.02 - Acute respiratory failure with hypercapnia Plan #Acute hypoxic and hypercapnic respiratory failure #Acute kidney injury #Fevers #Dilated aortic root #Hypertension #hepatosteatosis #Elevated TSH #Debility #Morbid Obesity Medications at Discharge Home Medications albuterol sulfate 2.5 mg/3 mL (0.083 %) solution for nebulization 2.5 mg (3 mL) inhalation Q2H PRN PRN SOB/Wheezing #0 mL 04/30/22 carvedilol 12.5 mg tablet 12.5 mg PO BID #30 tabs 04/30/22 furosemide 40 mg tablet 40 mg PO BIDLX #30 tabs 04/30/22 ipratropium 0.5 mg-albuterol 3 mg (2.5 mg base)/3 mL nebulization soln 3 ml inhalation Q6H.RT #0 mL 04/30/22 magnesium chloride 64 mg (magnesium chloride) tablet,delayed release (Mag 64) 128 mg PO BID #0 tabs 04/30/22 nystatin 100,000 unit/gram topical powder (Nyamyc) 1 applic topical TID #0 grams 04/30/22 Hospital Course Procedures 2-D Echocardiogram and Intubation Summary of Care Provided Minutes Spent on Discharge: 40 Hospital Course: The 36-year-old male with a history of obstructive sleep apnea not on home CPAP who presented to [facility] 04/30/2022 with progressive lethargy. EMS arrived to his home and put him on oxygen and he was brought to the ED and was placed on BiPAP, initially was alert and oriented but became more lethargic and required intubation secondary to acute combined respiratory failure. His respiratory failure was felt to be combined untreated SYMONE, obesity hypoventilation syndrome, and cor pulmonale/volume overload. He improved fairly quickly from a respiratory standpoint and was extubated. He was put on a Lasix drip which continued to improve his respiratory status and he was down 35 L and 20 kg for the hospital stay. Continue to require BiPAP at bedtime and 3 L of O2 during the day but symptomatically improving. Echo obtained did show EF of 55% with mild to moderately dilated aortic root and moderate concentric LVH. During his hospitalization he also had fever of unknown origin but infectious work-up was negative, he was initially on antibiotics and was evaluated by infectious disease but given no etiology identified his antibiotics were discontinued. P atient was maintained on a Lasix drip with good diuresis however day prior to discharge had bump in BUN and creatinine and Lasix drip held and BMP trended, was restarted on 40 p.o. twice daily day of discharge and is in stable condition, can further monitor at SNF. Additionally goal was to obtain room air ABG to assess status and AA gradient for possible diagnosis of obesity hypoventilation syndrome so he could qualify for trilogy however unable to obtain ABG. DC to SNF on BiPAP at bedtime and prn (settings are 22/14 with a rate of 12 and FIO2 of 40%. High pressure alarm 30, low pressure alarm 2) and prior to discharge home can consider ABG on room air to see if he qualifies for trilogy. Would also recommend following up with pulmonology upon discharge, contact information will be provided. Discharge instructions as below: DISCHARGE INSTRUCTIONS PLEASE READ -Recommend checking BMP in the a.m. to assist with further adjustment of Lasix dosing -Itwill be important that he wears BiPAP at bedtime (settings are 22/14 with a rate of 12 and FIO2 of 40%. High pressure alarm 30, low pressure alarm 2) and prior to discharge home can consider ABG on room air to see if he qualifies for trilogy -Recommend daily weights -You were found to have a dilated aortic root of 4.4 cm on your echocardiogram, you may need a CTA as an outpatient for better evaluation, would recommend following up with cardiology upon discharge. Contact information provided -Due to the dilation seen it will be important to maintain blood pressure control with a goal less than 130/80 -You were also found to have fatty liver during your work-up and you would benefit from establishing care with gastroenterology upon discharge, contact information provided -Would recommend following up with pulmonology upon discharge as you are being discharged on oxygen and BiPAP and will need further follow-up and work-up -I will also be very important for you to establish with a primary care physician prior to your discharge from the skilled rehab facility -For any concerning signs or symptoms please call 911 or proceed to the nearest emergency department Physical Exam Narrative General: Alert, oriented, no apparent distress HEENT: Atraumatic, normocephalic Eyes: Anicteric, normal conjunctiva, extraocular movements grossly intact Neck: Supple Respiratory: Diminished breath sounds at the bases, normal respiratory effort Cardiovascular: Regular rate and rhythm GI: Soft, nontender, nondistended Extremities: No extremity nonpitting edema Musculoskeletal: Moving all extremities Neuro: No overt focal neurological deficits Skin: No overt lesions Psych: Cooperative Weight / BMI Weight Weight: 203.6 kg Body Mass Index (BMI) 70.4 ABG / Lab / Microbiology Data Result Diagrams: 04/30/22 05:03 04/30/22 12:50 Laboratory: Laboratory Results - last 24 hr 04/29/22 19:21: Sodium 133 L, Potassium 3.8, Chloride 88 L, Carbon Dioxide 36.0 H, Anion Gap 9, BUN 53 H, Creatinine 1.55 H, Estim Creat Clear Calc 60.03, Est GFR (MDRD) Af Amer 66, Est GFR (MDRD) Non-Af 54 L, BUN/Creatinine Ratio 34.2 H, Glucose 123 H, Calcium 9.5 04/30/22 05:03: WBC 8.9, RBC 4.28 L, Hgb 11.9 L, Hct 38.4 L, MCV 89.7, MCH 27.8, MCHC 31.0 L, RDW Std Deviation 45.9 H, RDW Coeff of Zulma 14.0, Plt Count 421, MPV 10.7, Immature Gran % (Auto) 0.600, Neut % (Auto) 61.4, Lymph % (Auto) 16.8 L, Steele % (Auto) 14.6 H, Eos % (Auto) 5.9 H, Baso % (Auto) 0.7, Absolute Neuts (auto) 5.5, Absolute Lymphs (auto) 1.50, Nucleated RBC % 0 04/30/22 05:03: Sodium 129 L, Potassium 3.7, Chloride 88 L, Carbon Dioxide 33.0 H, Anion Gap 8, BUN 64 H, Creatinine 1.93 H, Estim Creat Clear Calc 48.21, Est GFR (MDRD) Af Amer 51 L, Est GFR (MDRD) Non-Af 42 L, BUN/Creatinine Ratio 33.2 H , Glucose 111 H, Calcium 9.2, Total Bilirubin 0.40, AST 22, ALT 25, Alkaline Phosphatase 58, Total Protein 6.6, Albumin 2.3 L, Globulin 4.3 H, Albumin/Globulin Ratio 0.5 L 04/30/22 12:50: Sodium 132 L, Potassium 3.8, Chloride 91 L, Carbon Dioxide 32.0, Anion Gap 9, BUN 62 H, Creatinine 1.51 H, Estim Creat Clear Calc 61.62, Est GFR (MDRD) Af Amer 68, Est GFR (MDRD) Non-Af 56 L, BUN/Creatinine Ratio 41.1 H, Glucose 120 H, Calcium 9.4 Microbiology: Microbiology 04/30/22 14:58 Nasal Secretion SARS-CoV-2 Antigen (Rapid) - Final 04/26/22 12:00 Blood Culture (Wb) - Left Hand Blood Culture - Preliminary No growth in 48 hours. 04/26/22 11:50 Blood Culture (Wb) - Pic Blood Culture - Preliminary No growth in 48 hours. 04/26/22 12:30 Urine Catheter - Catheter Urine Culture - Final Culture exhibits no growth. 04/20/22 05:05 Blood Culture (Wb) - Right Hand Blood Culture - Final No growth in 5 days. 04/20/22 05:15 Blood Culture (Wb) - Chest Bacteria Detection (PCR) - Final Staphylococcus epidermidis 04/20/22 05:15 Blood Culture (Wb) - Chest Blood Culture - Final Coag Negative Staph 04/19/22 20:06 Sputum, Tracheal Aspirate Gram Stain - Final 04/19/22 20:06 Sputum, Tracheal Aspirate Respiratory Culture - Final Mixed normal respiratory kolton. No Streptococcus pneumoniae, beta-hemolytic Streptococcus or Staphylococcus aureus isolated. 04/19/22 21:35 Mucosa - Nasopharyngeal Respiratory Panel (PCR) - Final 04/19/22 21:35 Mucosa - Nasopharyngeal Influenza Types A,B Direct FA (TARYN) - Final 04/19/22 18:20 Nasal Secretion SARS-CoV-2 Antigen (Rapid) - Final Meaningful Use Info Meaningful Use Diagnoses (Choose all that apply): None applicable Discharge Plan Admission Admit Date/Time: 04/19/22 20:09 Primary Reason for Your Visit: Mental Status Change Attending Provider: Agueda Plasencia Primary Care Provider: Care Physician,No Primary Consulting Providers: Agueda Plasencia ; Dom Tamayo ; aHrish Benton ; Alen Son ; David Bautista ; Anibal March ; Tameka Marquez NP ; Shabana Hernandez Instructions Patient Instructions: Losing Weight for Heart Health, Lung Disease Healthy Weight, ED Sleep Apnea, Obstructive, Watch Your Weight Additional Instructions / Restrictions: DISCHARGE INSTRUCTIONS PLEASE READ -Recommend checking BMP in the a.m. to assist with further adjustment of Lasix dosing -Itwill be important that he wears BiPAP at bedtime (settings are 22/14 with a rate of 12 and FIO2 of 40%. High pressure alarm 30, low pressure alarm 2) and prior to discharge home can consider ABG on room air to see if he qualifies for trilogy -Recommend daily weights -You were found to have a dilated aortic root of 4.4 cm on your echocardiogram, you may need a CTA as an outpatient for better evaluation, would recommend following up with cardiology upon discharge. Contact information provided -Due to the dilation seen it will be important to maintain blood pressure control with a goal less than 130/80 -You were also found to have fatty liver during your work-up and you would benefit from establishing care with gastroenterology upon discharge, contact information provided -Would recommend following up with pulmonology upon discharge as you are being discharged on oxygen and BiPAP and will need further follow-up and work-up -I will also be very important for you to establish with a primary care physician prior to your discharge from the skilled rehab facility -For any concerning signs or symptoms please call 911 or proceed to the nearest emergency department Discharge Orders/Prescriptions Prescriptions: New furosemide 40 mg Tablet 40 mg PO BIDLX Qty: 30 0RF carvedilol 12.5 mg Tablet 12.5 mg PO BID Qty: 30 0RF ipratropium-albuterol 0.5 mg-3 mg(2.5 mg base)/3 mL Solution For Nebulization 3 ml inhalation Q6H.RT Qty: 0 0RF albuterol sulfate 2.5 mg /3 mL (0.083 %) Solution For Nebulization 2.5 mg inhalation Q2H PRN PRN (Reason: SOB/Wheezing) Qty: 0 0RF nystatin [Nyamyc] 100,000 unit/gram Powder 1 applic topical TID Qty: 0 0RF Protocol: *Topical Application Instructions APPLICATION INSTRUCTIONS: affected area Mag 64 64 mg Tablet,Delayed Release (Dr/Ec) 128 mg PO BID Qty: 0 0RF Referrals / Follow Up: Harish Benton MD [Med Staff - Active Staff] - Within 1 Month Francesco Benites MD [Med Staff - Active Staff] - Within 1 Month (ou were found to have a dilated aortic root of 4.4 cm on your echocardiogram, you may need a CTA as an outpatient for better evaluation, would recommend following up with cardiology upon discharge) Tamir Neil DO [Med Staff - Active Staff] - Within 3 Months (for fatty liver disease) Care Physician,No Primary [Primary Care Provider] - NOT,DEFINED [Non-Staff] - Tameka Marquez NP, STUDENT SERVICES COUNSELOR-C [Med Staff - Adv Practice Prof] - Disposition Disposition (needs filled in before D/C Order can be placed): [facility] Charges/Coding Visit Charges Inpatient E&M: 09703 Disch Hosp >30min
--- NOTE | 2022-04-30 16:08 | CASEMGMT ---
Orders, fiber picker time, and COVID test faxed to [facility] per their request. (fax: [phone]) Plan: d/c to [facility] under skilled level of care on a PAS. Physicians transported patient via wheelchair van. Zhane GONZALEZ
--- NOTE | 2022-04-30 16:30 | PHA.DC.MR ---
Pharmacy Service has performed discharge medication reconciliation for this patient. The patient's discharge medication list was reviewed for discrepancies and discrepancies were resolved. Home Medications albuterol sulfate 2.5 mg/3 mL (0.083 %) solution for nebulization 2.5 mg (3 mL) inhalation Q2H PRN PRN SOB/Wheezing #0 mL 04/30/22 carvedilol 12.5 mg tablet 12.5 mg PO BID #30 tabs 04/30/22 furosemide 40 mg tablet 40 mg PO BIDLX #30 tabs 04/30/22 ipratropium 0.5 mg-albuterol 3 mg (2.5 mg base)/3 mL nebulization soln 3 ml inhalation Q6H.RT #0 mL 04/30/22 magnesium chloride 64 mg (magnesium chloride) tablet,delayed release (Mag 64) 128 mg PO BID #0 tabs 04/30/22 nystatin 100,000 unit/gram topical powder (Nyamyc) 1 applic topical TID #0 grams 04/30/22
--- NOTE | 2022-04-30 19:58 | NURSING ---
This RN attempted to nikky lreport to Rowena evans. Rowena Evans RN said she would call back.
== END 2022-04-30 17:19 | disposition skilled nursing facility (03) | DRG 133 ==
LOC: ED 18:12 → ICU 20:19 → PCU 04-26 17:55
PROVIDERS: Internal Medicine; Internal Medicine Critical Care Medicine; Internal Medicine Infectious Disease; Admitting Provider Internal Medicine; Emergency Provider Emergency Medicine; Visit Provider Internal Medicine
DX: J96.02 Acute respiratory failure with hypercapnia (principal); E66.2 Morbid (severe) obesity with alveolar hypoventilation; N17.9 Acute kidney failure, unspecified; I77.819 Aortic ectasia, unspecified site; J96.01 Acute respiratory failure with hypoxia; Z68.45 Body mass index [BMI] 70 or greater, adult; K76.0 Fatty (change of) liver, not elsewhere classified; I10 Essential (primary) hypertension; F17.220 Nicotine dependence, chewing tobacco, uncomplicated; L03.311 Cellulitis of abdominal wall; Q63.1 Lobulated, fused and horseshoe kidney; R94.6 Abnormal results of thyroid function studies; Z59.7 Insufficient social insurance and welfare support; Z91.190 Patient's noncompliance with other medical treatment and regimen due to financial hardship; Z71.3 Dietary counseling and surveillance; Z79.01 Long term (current) use of anticoagulants; Z79.899 Other long term (current) drug therapy
CPT/HCPCS: 31500; 31720; 36415; 36569; 36600; 51702; 71045; 74018; 76705; 80048; 80053; 80061; 80202; 81001; 82550; 82803; 82962; 83605; 83735; 83880; 84100; 84145; 84439; 84443; 84478; 84681; 85025; 85610; 85730; 87040; 87070; 87086; 87149; 87205; 87426; 87633; 87635; 87641; 87804; 87811; 93005; 93306; 93970; 94002; 94003; 94640; 94660; 94668; 94762; 97110; 97116; 97162; 97166; 97530; 97535; 97802; 97803; 99252; 99285; J7030; J7040; Q9957; A4216; G0463; J1940; J3010; U0003; U0005

== ENCOUNTER → 2022-05-23 | Outpatient (CLI) | payer MEDICAID, SELFPAY ==
[2022-05-23 18:39] LABS: Absolute Lymphocyte Count 1.68 X10^3/uL (0.83-4.51); Absolute Neutrophil Count 3.8 X10^3/uL (2.0-7.7); Basophil# 0.03 X10^3/uL; Basophil% 0.5 % (0-1); Eosinophils% 4.6 % (0-5); Hematocrit 43.8 % (40-54); Hemoglobin 13.3 g/dL (13.0-16.5); Lymphocyte # 1.68 X10^3/ul (0.83-4.51); Lymphocyte % 25.8 % (19-41); Mean Corp Hgb Conc 30.4 g/dL (32-36); Mean Corpuscular Hgb 27.8 pg (27.0-32.0); Mean Corpuscular Volume 91.4 fL (80-94); Mean Platelet Vol. 11.1 fl (6.2-12.0); Monocyte# 0.69 X10^3/uL; Monocyte% 10.6 % (0-10); NRBC Flagged by Analyzer 0 % (0-5); Neutrophil # 3.79 X10^3/uL (2.7-7.7); Platelet Count 269 K/mm3 (150-450); RBC Distribution Width CV 14.9 % (11.6-14.6); RBC Distribution Width SD 50.4 fl (35.1-43.9); Red Blood Count 4.79 M/mm3 (4.6-6.2); White Blood Count 6.5 K/mm3 (4.4-11.0)
[2022-05-23 18:57] LABS: ALB/GLOB Ratio 0.7 RATIO (0.9-2.4); AST(SGOT) 21 U/L (15-37); Alanine Aminotransfer ALT/SGPT 29 U/L (16-61); Alkaline Phosphatase 81 U/L (45-117); Anion Gap 8 (5-15); BUN 10 mg/dL (7-18); BUN/Creat Ratio 13.9 RATIO (10-20); Calcium,Total 9.1 mg/dL (8.5-10.1); Chloride 103 mmol/L (98-107); Creatinine, Serum 0.72 mg/dL (0.70-1.30); EST Glomerular Filtration Rate 132 mL/min (>60); Est Glom Filt Rate - Afr Amer 160 mL/min (>60); Globulin 4.3 g/dL (2.2-4.2); Glucose 87 mg/dL (74-106); Potassium 3.5 mmol/L (3.5-5.1); Protein, Total 7.3 g/dL (6.4-8.2); Sodium Level 138 mmol/L (136-145); Thyroid Stim Hormone (TSH) 6.75 uIU/mL (0.358-3.74)
[2022-05-24 14:15] LABS: T4 Free Direct 1.16 ng/dL (0.76-1.46)
== END | disposition home or self-care (01) ==
LOC: MFPLAB 14:55
PROVIDERS: PCP Family Medicine; Referring Provider Family Medicine; Visit Provider Family Medicine
DX: R79.89 Other specified abnormal findings of blood chemistry (principal)
CPT/HCPCS: 36415; 80053; 84439; 84443; 84445; 84481; 85025; 86376

== ENCOUNTER → 2022-06-03 | Outpatient (CLI) | payer MEDICAID, SELFPAY | END | disposition home or self-care (01) | LOC: SL 20:17 | PROVIDERS: PCP Family Medicine; Referring Provider Internal Medicine; Visit Provider Internal Medicine | DX: G47.33 Obstructive sleep apnea (adult) (pediatric) (principal) | CPT/HCPCS: 95811 ==

== ENCOUNTER → 2022-08-15 | Outpatient (CLI) | payer MEDICAID, SELFPAY ==
[2022-08-15 15:38] LABS: Absolute Lymphocyte Count 1.74 X10^3/uL (0.83-4.51); Absolute Neutrophil Count 5.5 X10^3/uL (2.0-7.7); Basophil# 0.03 X10^3/uL; Basophil% 0.4 % (0-1); Eosinophils% 2.4 % (0-5); Hematocrit 43.2 % (40-54); Hemoglobin 14.2 g/dL (13.0-16.5); Lymphocyte # 1.74 X10^3/ul (0.83-4.51); Mean Corp Hgb Conc 32.9 g/dL (32-36); Mean Corpuscular Hgb 29.6 pg (27.0-32.0); Monocyte# 0.82 X10^3/uL; Monocyte% 9.9 % (0-10); NRBC Flagged by Analyzer 0 % (0-5); Neutrophil # 5.49 X10^3/uL (2.7-7.7); Neutrophil % 66.1 % (47-70); Platelet Count 318 K/mm3 (150-450); RBC Distribution Width CV 13.5 % (11.6-14.6); RBC Distribution Width SD 44.5 fl (35.1-43.9); White Blood Count 8.3 K/mm3 (4.4-11.0)
[2022-08-15 16:05] LABS: Erythrocyte Sedimentation Rate 52 mm/hr (0-20)
[2022-08-15 16:09] LABS: International Normalized Ratio 1.1; Prothrombin Time (Protime)PT. 13.8 SECONDS (11.7-14.9)
[2022-08-15 16:26] LABS: ALB/GLOB Ratio 0.7 RATIO (0.9-2.4); AST(SGOT) 17 U/L (15-37); Alanine Aminotransfer ALT/SGPT 28 U/L (16-61); Albumin, Serum 3.2 g/dL (3.2-5.0); Alkaline Phosphatase 103 U/L (45-117); Anion Gap 6 (5-15); BUN 10 mg/dL (7-18); BUN/Creat Ratio 11.7 RATIO (10-20); Chloride 105 mmol/L (98-107); Creatinine, Serum 0.86 mg/dL (0.70-1.30); EST Glomerular Filtration Rate 107 mL/min (>60); Est Glom Filt Rate - Afr Amer 130 mL/min (>60); Ferritin 159 ng/mL (26-388); Globulin 4.4 g/dL (2.2-4.2); Glucose 97 mg/dL (74-106); LDH 233 U/L (87-241); Potassium 3.6 mmol/L (3.5-5.1); Protein, Total 7.6 g/dL (6.4-8.2); Sodium Level 138 mmol/L (136-145)
[2022-08-15 16:43] LABS: Hemoglobin A1c 5.3 % (3.8-5.6)
[2022-08-15 16:58] LABS: HIV - WCH Non-Reactive (Nonreactive)
[2022-08-19 15:08] LABS: Anti-Centromere B Ab <0.2 AI (0.0-0.9); Anti-Chromatin <0.2 AI (0.0-0.9); Anti-Jo <0.2 AI (0.0-0.9); Anti-Mitochondrial AB <20.0 Units (0.0-20.0); Anti-Scleroderma-70 AB <0.2 AI (0.0-0.9); Anti-dsDNA Ab <1 IU/mL (0-9); RNP Ab <0.2 AI (0.0-0.9); SJOGREN'S Anti-SS-A test < 0.2 AI (0.0-0.9); SJOGREN'S Anti-SS-B test < 0.2 AI (0.0-0.9); Smith Ab <0.2 AI (0.0-0.9)
[2022-08-20 05:07] LABS: AFP, Tumor Marker < 1.8 ng/mL (0.0-6.9); Angiotensin Convert Enzyme 49 U/L (14-82); Anti-Smooth Muscle ABS 13 Units (0-19); Ceruloplasmin 30.2 mg/dL (16.0-31.0); Copper, Serum or Plasma 151 ug/dL (69-132); Cytoplasmic Ab (C-ANCA) <1:20 titer (Neg:<1:20); HEPATITIS B SURFACE AG Negative (Negative); Haptoglobin 252 mg/dL (17-317); Hep C Antibodies Non Reactive (Non Reactive); Hepatitis A IgM Antibody Negative (Negative); Hepatitis B Core AB IgM Negative (Negative); Perinuclear Ab (P-ANCA) <1:20 titer (Neg:<1:20)
[2022-08-20 16:09] LABS: Thyroid Stim Immunoglob <0.10 IU/L (0.00-0.55)
== END | disposition home or self-care (01) ==
LOC: LAB 15:10
PROVIDERS: PCP Family Medicine; Visit Provider Internal Medicine Gastroenterology
DX: K76.0 Fatty (change of) liver, not elsewhere classified (principal)
CPT/HCPCS: 80053; 80074; 82105; 82140; 82164; 82390; 82525; 82728; 83010; 83036; 83516; 83615; 84445; 85025; 85610; 85652; 86140; 86225; 86235; 86256; 86703

== ENCOUNTER → 2022-09-05 | Outpatient (CLI) | payer MEDICAID, SELFPAY ==
--- NOTE | 2022-09-05 09:04 | US_ITS ---
STUDY: SUPERFICIAL ULTRASOUND - MEDIAL ASPECT OF THE LEFT KNEE. REASON FOR EXAM: Male, 37 years old. Mass in medial aspect of L thigh above knee TECHNIQUE: A superficial ultrasound was performed with real-time and static alfaro-scale imaging. COMPARISON: None. FINDINGS: Sonographic imaging was performed. There is evidence of soft tissue edema. No solid or cystic mass lesion is seen. US/Ext Non Vasc Limited/Soft Tiss IMPRESSION: Edematous changes. No solid or cystic masses seen. Electronically Signed: Len Vasquez MD at 13:05 EDT ,
--- NOTE | 2022-09-05 09:04 | US_ITS ---
STUDY: ABDOMINAL ULTRASOUND - RIGHT UPPER QUADRANT REASON FOR VISIT: Male, 37 years old Fatty Liver TECHNIQUE: Ultrasound evaluation of the right upper quadrant was performed with real-time and static alfaro-scale imaging. TECHNICAL QUALITY: Adequate. COMPARISON: Comparison is made with prior study dated April 20, 2022. FINDINGS: Liver: The liver is enlarged and measures 22 cm. There is increased echogenicity consistent with fatty infiltration. The bile ducts are within normal limits. There is hepatic color flow. The direction of portal flow is hepatopetal. There is no demonstrated mass lesion. Gallbladder: Normal distended gallbladder. The gallbladder wall measures 2.1 mm. There is a negative sonographic Rowell''s sign. There is no pericholecystic fluid. There are no gallstones. Common Bile Duct (C.B.D.): The common bile duct measures 2.9 mm. Pancreas: There is nonvisualization of the pancreas due to overlying bowel gas. Right Kidney: Normal size of the right kidney. The right kidney measures 11 cm x 5.5 cm x 4.5 cm. Normal renal cortex. The right cortex measures 1.4 cm. There is no demonstrated renal mass or cyst. There is no right hydronephrosis. US/Abdomen Limited IMPRESSION: Hepatomegaly and fatty infiltration of the liver. Electronically Signed: Len Vasquez MD at 12:57 EDT ,
--- NOTE | 2022-09-05 09:04 | US_ITS ---
STUDY: ABDOMINAL ULTRASOUND - ELASTOGRAPHY REASON FOR VISIT: Male, 37 years old. Hepatomegaly and fatty infiltration of the liver. TECHNIQUE: Liver stiffness measurements were obtained on a [employer] RS 85 ultrasound machine using a CA 1-7 probe following the SRU guidelines. 3 measurements were obtained using a 2-D-SWE method. TheIQR/M was 21 % suggesting a quality data set. TECHNICAL QUALITY: Adequate. COMPARISON: None. FINDINGS: Liver: Hepatomegaly and fatty infiltration of the liver. Median liver stiffness measured 19 kPa. Abdomen: There is no demonstrated mass lesion. US/Elastography Parenchyma/Organ IMPRESSION: Liver stiffness measures 19 kPa compatible with F3-F4 (Moderate to severe liver fibrosis) Metavir score. Electronically Signed: Len Vasquez MD at 12:58 EDT ,
== END | disposition home or self-care (01) ==
LOC: US 09:03
PROVIDERS: PCP Family Medicine; Referring Provider Internal Medicine Gastroenterology; Visit Provider Internal Medicine Gastroenterology
DX: K76.0 Fatty (change of) liver, not elsewhere classified (principal); R22.42 Localized swelling, mass and lump, left lower limb
CPT/HCPCS: 76705; 76882; 76981

== ENCOUNTER 2022-11-07 07:00 | Outpatient (RCR) | payer MEDICAID, SELFPAY ==
--- NOTE | 2022-05-29 18:56 | HP.PTEVAL ---
Patient's Visit Information ISELA MORRISSEY is a 37 year old M referred to Physical Therapy by Kacey Soriano DO with a diagnosis of Obesity Hypoventilation syndrome. Date of Evaluation: 05/29/22 Physical Therapist: Juan Cordoba DPT - Visit Plan Frequency: 2x /Week Duration: 6 Weeks Plan: Start with progressive walking program, monitoring SpO2 levels and HR to maintain save levels. Add in BLE strengthening. Progress as tolerated. Pt. to add in walking program at home as well. Progress cardiovascular stress as tolerated. - Subjective Pt. is here today for his initial evaluation with diagnosis of morbid obesity and obesity hypoventilation syndrome. Pt. reports going into the hospital Apr 09 due to acute respiratory failure. He reports having an issue with alcohol as well. Pt. reports then going to a intermediate until last week. Pt. was working on LE strengthening, reducing edema, and increase lung compacity. Pt. is now back home. He reports being able to do some ADLS, but does fatigue rapidly. Pt. lives with his girlfriend. He does have stairs to his basement, but has not been using them currently. Pt. reports difficulty lying on his back to due difficulty breathing. He still c/o shortness of breath, but is no longer using supplemental O2. Pt. is hopeful to improve his breathing and tolerance to all activities. He is in the process of getting compression stockings and a BiPAP machine. He does not have them yet. - Objective POSTURE: FH Posture, rounded shoulders, wide LILIANA, morbid obesity. PALPATION: Pt. has marked edema in BLEs. 2+ pitting BLEs. NEURO: Pt. has normal sensation in BLEs. Pt. has normal DTR of BLEs. Pt. is able to rise on heels and toes without LOB or myotomal weakness. ROM: Pt. has right B HS, normal knee and hip ROM. Pt. has mod loss throughout lumbar spine. Tightness noted, no pain. MMT: Pt. has decent strength throughout BLEs. Pt. has 5-/5 in BLEs. Core strength poor. GAIT: Pt. is able to ambulate without AD. Pt. has wide LILIANA and decreased step length. STAIRS: pt. is able to negotiate with reciprocal pattern with 2 HR to complete, HR increased to 122 BPM with 1 flight but maintained above 90% SpO2. - Balance/Special Test Scores Lower Extremity Functional Score: 33 6 Minute Walk Test: 694feet with out AD. SpO2 dropped to 84% and 131 BPM HR. SpO2 elevated to above 90% with in 1 min. Pt. reported RPE of 12 on dyspnea scale. Pt. did not complete test, but had to stop at 4:10 due to fatigue and SpO2 levels dropping. - Goals Goal 1:: LTG: Pt. to be I with HEP and walking program. Goal Time Frame: 4-6 Weeks Goal 2:: STG: Pt. to be able to walk for 3 minutes with maintaining above SpO2 levels above 90%. Goal Time Frame: 2-4 Weeks Goal 3:: LTG: Pt. to complete 6 MWT with maintaining above 90% SpO2 levels. Goal Time Frame: 4-6 Weeks Goal 4:: LTG: Pt. to be able to walk 1000' with maintaining above 90% SpO2 during 6MWT. Goal Time Frame: 4-6 Weeks Goal 5:: LTG: Pt. to negotiate 1 flight of stairs with 1 HR with reciprocal pattern with maintaining above 90% SpO2. Goal Time Frame: 4-6 Weeks - Rehabilitation Potential Physical Therapy Diagnosis: Pt. has signs and symptoms consistent with OHS. Pt. has increased respiratory stress with walking and simple activities. Pt. would benefit from PT to work on progressive cardio vascular exercises, BLE strengthening and progression walking program. Rehabilitation Potential: Good - Anticipated Interventions Patient/Client Instruction: Educate patient on: Condition, Plan of Care, Risk Factors, Benefits of Fitness Program For the Purpose of:: To improve decision making, To facilitate caregiver knowledge, To improve self management, To prevent re-injury, To improve ability to perform tasks related to life management Therapeutic Exercise to Include: Strength training, Power training, Endurance training, Postural training, Flexibilty training, Gait and locomotor training For the Purpose of:: To decrease swelling/inflammation, To increase ROM, To improve nutrient delivery to tissue, To increase oxygenation perfusion, To improve muscle performance and motor function, To improve ability of physical actions for home/community/work/leisure, To improve gait and locomotor functions, To improve health of tissue, To decrease soft tissue restriction, To increase flexibility/ROM, To improve endurance Thank you for the opportunity to evaluate your patient. For Medicare and Medicare HMO plans, please review the plan of care and approve it. It will need to be FAXED BACK to us at [phone] for Medicare purposes. For Medicare only, by signing this I certify the plan of care. Please let me know if there are questions or concerns regarding this plan of care. Physician Signature: Date:
--- NOTE | 2022-08-27 15:28 | HP.PTREVAL_ITS ---
Kacey Soriano, DO, It has been my pleasure to treat ISELA MORRISSEY over the last 27 visits for Obesity Hypoventilation syndrome. Please see the progress note below for an update on the physical therapy plan of care! Subjective: Pt. reports having no pain. Pt. reports no issues with his breathing. He is back to doing most activities. He reports losing close to 50 pounds since going into long-term. Objective/Function: Pt. has very good strength throughout BLEs. NO pain with testing. ROM: Pt. has decent ROM in BLEs, tight HS, but otherwise fine. Minimal edema noted in BLEs, non pitting. He does have some growth at medial thigh, unsure if this is fatty tissue. It does not feel like edema. 6 MWT: Pt. ambulated 1071 feet SpO2 pre test: 95%, post 91%, HR pre test 101BPM, post 147 BPM. STAIRS: 1 flight: good control no instability. SpO2 pre 94%, post 90%. HR pre 105 BPM, post 151 BPM. Pt. is overall doing much better when it comes to his O2 saturation with activities. His HR does elevate quickly with gait and stair negotiation. He would benefit from continued fitness program working on cardiovascular fitness in order to reduce stress applied to HR with his daily and recreational activities. Plan Plan: I am requesting continued PT x2 visits per week for 4 weeks progress a program to I with focus on cardiovascular fitness in order to reduce stress on his heart. Monitored via HR and RPE scale. Balance/Gait/Functional tests - Balance/Special Test Scores Lower Extremity Functional Score: 33 6 Minute Walk Test: 694feet with out AD. SpO2 dropped to 84% and 131 BPM HR. SpO2 elevated to above 90% with in 1 min. Pt. reported RPE of 12 on dyspnea scale. Pt. did not complete test, but had to stop at 4:10 due to fatigue and SpO2 levels dropping. Goals Goal 1:: LTG: Pt. to be I with HEP and walking program. Goal Time Frame: 4-6 Weeks Goal Progress: Progressing Goal 2:: STG: Pt. to be able to walk for 3 minutes with maintaining above SpO2 levels above 90%. Goal Time Frame: 2-4 Weeks Goal Progress: Goal Met Goal 3:: LTG: Pt. to complete 6 MWT with maintaining above 90% SpO2 levels. Goal Time Frame: 4-6 Weeks Goal Progress: Goal Met Goal 4:: LTG: Pt. to be able to walk 1000' with maintaining above 90% SpO2 during 6MWT. Goal Time Frame: 4-6 Weeks Goal Progress: Goal Met Goal 5:: LTG: Pt. to negotiate 1 flight of stairs with 1 HR with reciprocal pattern with maintaining above 90% SpO2. (new goal: Pt. to negotiate 1 flight of stairs with 1 HR with maintaining above 90% SpO2 as well as HR maintain below 130BPM). Goal Time Frame: 4-6 Weeks Goal Progress: Progressing Goal 6:: Pt. to walk for 6 minutes with maintaining SpO2 above 90% and HR below 120 BPM showing improved cardiovascular system. Goal Time Frame: 4-6 Weeks Goal Progress: Progressing Anticipated Interventions Patient/Client Instruction: Educate patient on: Condition, Plan of Care, Risk Factors, Benefits of Fitness Program For the Purpose of:: To improve decision making, To facilitate caregiver knowledge, To improve self management, To prevent re-injury, To improve ability to perform tasks related to life management Therapeutic Exercise to Include: Strength training, Power training, Endurance training, Postural training, Flexibilty training, Gait and locomotor training For the Purpose of:: To decrease swelling/inflammation, To increase ROM, To improve nutrient delivery to tissue, To increase oxygenation perfusion, To improve muscle performance and motor function, To improve ability of physical actions for home/community/work/leisure, To improve gait and locomotor functions, To improve health of tissue, To decrease soft tissue restriction, To increase flexibility/ROM, To improve endurance Please do not hesitate to contact me at [phone] by phone or if you have questions or concerns regarding this new plan of care! Sincerely, Juan Cordoba DPT
== END 2022-11-07 19:00 | disposition home or self-care (01) ==
LOC: PT 07:00
PROVIDERS: PCP Family Medicine; Referring Provider Family Medicine; Visit Provider Family Medicine
DX: E66.2 Morbid (severe) obesity with alveolar hypoventilation (principal)
CPT/HCPCS: 97110; 97161; 97164

== ENCOUNTER 2022-11-28 08:00 | Outpatient (RCR) | payer MEDICAID, SELFPAY ==
--- NOTE | 2022-11-28 08:43 | HP.PTDCSUM ---
Discharge Summary D/C summary: It has been my pleasure to treat ISELA MORRISSEY referred by Kacey Soriano DO, with the diagnosis of Obesity hypoventiation for a total of 24 visit(s). Discharge Date: 11/28/22 Please see the following information for a summary of their discharge status. Subjective Subjective: Pt. reports overall doing better. Pt. reports being 90% better overall. No breathing issues noted. Sleeping well. Still using CPAP. Overall Improvement % Improvement: 90 Objective Objective/Function: 6 MWT: 1398 feet SpO2 95%, HR 124 STAIRS 2 flights SpO2 92%, HR 118 Pt. has 5/5 strength throughout BLEs and UEs. PT. is overall doing much better I talked to him about continuing Goals Goal 1:: LTG: Pt. to be I with HEP. Goal Progress: Goal Met Goal 2:: LTG: Pt. to negotiate 2 flights of stairs with SpO2 above 91%. Goal Progress: Goal Met Goal 3:: LTG: Pt. to complete 6 MWT above 1100' with above 90% SpO2. Goal Progress: Goal Met D/C Information Discharge Comments: Pt. has been treated with endurance and strengthening with focus on SpO2 levels and progressing endurance. Pt. is overall doing well and much better at this point in time. Pt. will be DC from PT at this point. d/c sentence: If there are questions or concerns regarding this patient's physical therapy, please feel free to call me at [phone]. Thank you for the referral of this patient. Sincerely, Juan Cordoba, DPT Balance/Gait/Functional tests Improvement % Improvement: 90
== END 2022-11-28 09:50 | disposition home or self-care (01) ==
LOC: PT 08:00
PROVIDERS: PCP Family Medicine; Referring Provider Family Medicine; Visit Provider Family Medicine
DX: E66.2 Morbid (severe) obesity with alveolar hypoventilation (principal)
CPT/HCPCS: 97164; 97530

== ENCOUNTER 2023-03-20 12:00 | Outpatient (RCR) | payer MEDICAID, SELFPAY ==
--- NOTE | 2023-02-11 10:00 | HP.PTEVAL ---
Patient's Visit Information Visit Information Visit Information: ISELA MORRISSEY is a 37 year old M referred to Physical Therapy by Kacey Soriano DO with a diagnosis of Obesity. Date of Evaluation: 02/06/23 Physical Therapist: Juan Cordoba DPT Visit Plan Frequency: 2x /Week Duration: 4 Weeks Plan: Start with core stability exercises in neutral spine progressing to dynamic stability. Add in cardiovascular training with progressive walking programs with focus on endurance. Subjective Subjective: Pt. is here today for his initial evaluation with diagnosis of obesity. Pt. was seen here earlier this year. At that point in time he was having issues with hypoventilation as well. He reports this has resolved. Pt. is still using CPAP, but normal O2 sat during the day. He reports having some mild B knee pain and lumbar spine soreness. 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 Pt. is sleeping okay as well. He is hopeful to reduce in B knee pain, LBP, but also get stronger. He does report increased rapid fatigue limiting his ability to complete some work duties as well as recreational activities. He does a lot of lifting during his odd jobs and has some back pain after. Pt. would like to be able to complete all work activties with less back pain limiting his tolerance. Pain B knee: Pain Intensity (Out of 10): 1 Pain Intensity Range: 0 and 2 Lumbar spine: Pain Intensity (Out of 10): 1 Pain Intensity Range: 0 and 2 Objective Objective: POSTURE: Pt. has increased thoracic kyphosis. Pt. has increased Forward head posture with wide LILIANA. PALPATION: Pt. did not have much pain with palpation of B knees, not much pain with palpation throughout lumbar spine. NEURO: Normal throughout. Pt is able to rise in heels and toes without issues. ROM: Pt has full B knee ext, knee flexion to 118deg on R and 116deg on L. Pt. has tight HS, Lumbar ROM: normal throughout, no increase in symptoms. MMT: RLE: knee: ext 31#, flexion 28#. LLE: knee: ext 33#, flexion 27#. Core strength: fair-. Mild increase in LBP with core trials. GAIT: Pt. has fairly normal gait pattern. 6 MWT: 1031feet. HR prior 88 BPM, after 137 BPM. STAIRS: Pt. is able to negotiate with out HR with reciprocal pattern. Special Tests L/S Slump test left side: Negative L/S Slump test right side: Negative L/S Left Straight Leg Raise: Negative L/S Right Straight Leg Raise: Negative Lumbar Standing: Flexion - Mechanical Response: No effect Lumbar Standing: Flexion - Symptoms During Testing: Increases Lumbar Standing: Flexion - Symptoms After Testing: No worse Lumbar Standing: Extension - Mechanical Response: No effect Lumbar Standing: Extension - Symptoms During Testing: No effect Lumbar Standing: Extension - Symptoms After Testing: No effect Lumbar Standing: Right Side Glides - Mechanical Response: No effect Lumbar Standing: Right Side [place] - Symptoms During Testing: No effect Lumbar Standing: Right Side [place] - Symptoms After Testing: No effect Lumbar Standing: Left Side [place] - Mechanical Response: No effect Lumbar Standing: Left Side [place] - Symptoms During Testing: No effect Lumbar Standing: Left Side [place] - Symptoms After Testing: No effect Lumbar Lying: Flexion - Mechanical Response: No effect Lumbar Lying: Flexion - Symptoms During Testing: No effect Lumbar Lying: Flexion - Symptoms After Testing: No effect Lumbar Lying: Extension - Mechanical Response: No effect Lumbar Lying: Extension - Symptoms During Testing: Increases Lumbar Lying: Extension - Symptoms After Testing: No worse R Knee Apley - Meniscus: Negative R Knee Disco Test - Meniscus: Negative R Knee Anterior Drawer - ACL: Negative R Knee Posterior Drawer - PCL: Negative R Knee Patellar Grind - PFS: Negative L Knee Apley - Meniscus: Negative L Knee Disco Test - Meniscus: Negative L Knee Anterior Drawer - ACL: Negative L Knee Valgus - MCL: Negative L Knee Varus - LCL: Negative L Knee Patellar Apprehension - PFS: Negative Goals Goal 1:: LTG: Pt. to be I with HEP for core strengthening and HS, hip flexor stretching. Goal Time Frame: 4-6 Weeks Goal 2:: STG: Pt. to sleep without increase in B knee or back pain. Goal Time Frame: 2-4 Weeks Goal 3:: LTG: Pt. to have increased B HS and hip flexor length to normal allowing for better pelvic positioning. Goal Time Frame: 4-6 Weeks Goal 4:: LTG: Pt. to have increased core strength to fair+ without increase in symptoms in order to reduce stress to lumbar spine with all work related activites. Goal Time Frame: 4-6 Weeks Goal 5:: LTG: Pt. to complete 6 MWT with over 1300' with RPE of at most 12 indicating increased tolerance to all endurance activities. Goal Time Frame: 4-6 Weeks Rehabilitation Potential Physical Therapy Diagnosis: Pt. has signs and symptoms consistent with obesity, but is also having increased B knee and LBP. Pt. has marked tightness in his HS and hip flexors, but also marked core weakness. Pt. would benefit from PT to address his LBP with stretching and core strengthening as well as working on endurance training to increase tolerance to all work related activities. Rehabilitation Potential: Excellent Anticipated Interventions Patient/Client Instruction: Educate patient on: Condition, Plan of Care, Risk Factors and Benefits of Fitness Program For the Purpose of:: To improve decision making, To facilitate caregiver knowledge, To improve self management, To prevent re-injury and To improve ability to perform tasks related to life management Therapeutic Exercise to Include: Strength training, Power training, Endurance training, Flexibilty training and Dynamic Lumbar Stabilization For the Purpose of:: To decrease pain, To increase ROM, To improve nutrient delivery to tissue, To increase oxygenation perfusion, To improve muscle performance and motor function, To improve ability to perform ADL's, To increase tolerance to activity/condition/position, To improve performance and independence with ADL's, To decrease level of supervision to perform tasks, To improve ability of physical actions for home/community/work/leisure and To increase flexibility/ROM Text: Thank you for the opportunity to evaluate your patient. For Medicare and Medicare HMO plans, please review the plan of care and approve it. It will need to be FAXED BACK to us at [phone] for Medicare purposes. For Medicare only, by signing this I certify the plan of care. Please let me know if there are questions or concerns regarding this plan of care. Physician Signature: Date:
--- NOTE | 2023-03-31 09:43 | HP.PTDCSUM ---
Discharge Summary D/C summary: It has been my pleasure to treat ISELA MORRISSEY referred by Kacey Soriano DO, with the diagnosis of Obesity for a total of 8 visit(s). Discharge Date: 03/20/23 Please see the following information for a summary of their discharge status. Subjective Subjective: Pt. reports being 90% better overall. Pain B knee: Pain Intensity (Out of 10): 0 Lumbar spine: Pain Intensity (Out of 10): 0 Overall Improvement % Improvement: 90 Objective Objective/Function: Pt. is no longer having any pain. 6 MWT 1587 feet core strength fair+ HS length normal, hip flexor length normal. stairs: 2 flights, SpO2 stayed above 93% throughout. No back or knee pain with all testing. Goals Goal 1:: LTG: Pt. to be I with HEP for core strengthening and HS, hip flexor stretching. Goal Progress: Goal Met Goal 2:: STG: Pt. to sleep without increase in B knee or back pain. Goal Progress: Goal Met Goal 3:: LTG: Pt. to have increased B HS and hip flexor length to normal allowing for better pelvic positioning. Goal Progress: Goal Met Goal 4:: LTG: Pt. to have increased core strength to fair+ without increase in symptoms in order to reduce stress to lumbar spine with all work related activites. Goal Progress: Goal Met Goal 5:: LTG: Pt. to complete 6 MWT with over 1300' with RPE of at most 12 indicating increased tolerance to all endurance activities. Goal Progress: Goal Met Plan Plan: Pt. to be DC from PT at this point in time. D/C Information Discharge Comments: Pt. was treated with core, BLE strengthening. Pt. did well. He has good endurance and is no longed having any pain. I am DCing him to HEP and focus on walking program to further assist with cardiovascular endurance. Pt. agrees with plan. d/c sentence: If there are questions or concerns regarding this patient's physical therapy, please feel free to call me at [phone]. Thank you for the referral of this patient. Sincerely, Juan Edmonds Sipos, DPT Balance/Gait/Functional tests Balance/Special Test Scores Lower Extremity Functional Score: 74 Improvement % Improvement: 90
== END 2023-03-20 19:00 | disposition home or self-care (01) ==
LOC: PT 12:00
PROVIDERS: PCP Family Medicine; Referring Provider Family Medicine; Visit Provider Family Medicine
DX: E66.01 Morbid (severe) obesity due to excess calories (principal)
CPT/HCPCS: 97110; 97161; 97164

== ENCOUNTER → 2023-04-09 | Outpatient (CLI) | payer MEDICAID, SELFPAY ==
[2023-04-09 11:22] LABS: Absolute Lymphocyte Count 2.05 X10^3/uL (0.83-4.51); Basophil# 0.05 X10^3/uL; Basophil% 0.7 % (0-1); Eosinophil# 0.24 X10^3/uL; Eosinophils% 3.4 % (0-5); Hemoglobin 13.7 g/dL (13.0-16.5); Lymphocyte # 2.05 X10^3/ul (0.83-4.51); Lymphocyte % 29.1 % (19-41); Mean Corp Hgb Conc 32.6 g/dL (32-36); Mean Corpuscular Hgb 29.3 pg (27.0-32.0); Mean Corpuscular Volume 89.9 fL (80-94); Mean Platelet Vol. 9.5 fl (6.2-12.0); Monocyte% 9.9 % (0-10); NRBC Flagged by Analyzer 0 % (0-5); Neutrophil # 3.97 X10^3/uL (2.7-7.7); Neutrophil % 56.3 % (47-70); Platelet Count 282 K/mm3 (150-450); RBC Distribution Width CV 13.1 % (11.6-14.6); RBC Distribution Width SD 42.5 fl (35.1-43.9); Red Blood Count 4.67 M/mm3 (4.6-6.2); White Blood Count 7.1 K/mm3 (4.4-11.0)
[2023-04-09 11:31] LABS: Prothrombin Time (Protime)PT. 12.8 SECONDS (11.7-14.9)
[2023-04-09 12:13] LABS: ALB/GLOB Ratio 0.8 RATIO (0.9-2.4); AST(SGOT) 12 U/L (15-37); Alanine Aminotransfer ALT/SGPT 30 U/L (16-61); Albumin, Serum 3.1 g/dL (3.2-5.0); Alkaline Phosphatase 102 U/L (45-117); Anion Gap 2 (5-15); BUN 11 mg/dL (7-18); BUN/Creat Ratio 20.1 RATIO (10-20); Calcium,Total 9.5 mg/dL (8.5-10.1); Chloride 111 mmol/L (98-107); Cholesterol 196 mg/dL (200); Creatinine, Serum 0.55 mg/dL (0.70-1.30); EST Glomerular Filtration Rate 180 mL/min (>60); Est Glom Filt Rate - Afr Amer 218 mL/min (>60); GGTP 18 U/L (15-85); Globulin 4.1 g/dL (2.2-4.2); Glucose 98 mg/dL (74-106); High Density Lipoprotein 48 mg/dL; Potassium 4.7 mmol/L (3.5-5.1); Protein, Total 7.2 g/dL (6.4-8.2); Sodium Level 140 mmol/L (136-145); Triglycerides 155 mg/dL; Very Low Density Lipoprotein 31 mg/dL (5-40); Vitamin D,25 Hydroxy 18.6 ng/mL
[2023-04-09 13:22] LABS: Hemoglobin A1c 5.7 % (3.8-5.6)
== END | disposition home or self-care (01) ==
PROVIDERS: PCP Family Medicine; Referring Provider Internal Medicine; Visit Provider Internal Medicine
DX: K76.0 Fatty (change of) liver, not elsewhere classified (principal); E66.01 Morbid (severe) obesity due to excess calories; Z68.44 Body mass index [BMI] 60.0-69.9, adult
CPT/HCPCS: 36415; 80053; 80061; 82306; 82977; 83036; 85025; 85610

== ENCOUNTER → 2023-04-21 | Outpatient (CLI) | payer MEDICAID, SELFPAY ==
--- NOTE | 2023-04-21 07:58 | US_ITS ---
STUDY: ABDOMINAL ULTRASOUND - RIGHT UPPER QUADRANT REASON FOR VISIT: Male, 37 years old FATTY LIVER, MAFLD, R/O LIVER MASS -- LAST liver stiffness 19kPa in 04/2022 TECHNIQUE: Ultrasound evaluation of the right upper quadrant was performed with real-time and static alfaro-scale imaging. TECHNICAL QUALITY: Limited. Examination limited due to obesity. COMPARISON: Comparison is made with prior study dated September 05, 2022. FINDINGS: Liver: The liver is enlarged and measures 21 cm. There is increased echogenicity consistent with fatty infiltration. The bile ducts are within normal limits. There is hepatic color flow. The direction of portal flow is hepatopetal. There is no demonstrated mass lesion. Gallbladder: There is a contracted gallbladder. The gallbladder wall measures 2.1 mm. There is a negative sonographic Rowell''s sign. There is no pericholecystic fluid. There are no gallstones. Common Bile Duct (C.B.D.): The common bile duct measures 5 mm. Pancreas: Normal size of the head, body and tail of the pancreas. There is increased echogenicity of the pancreas. There is no demonstrated pancreatic mass or cyst. Right Kidney: Normal size of the right kidney. The right kidney measures 13.4 cm x 6.7 cm x 5 cm. Normal renal cortex. The right cortex measures 1.3 cm. There is no demonstrated renal mass or cyst. There is no right hydronephrosis. IMPRESSION: Hepatomegaly. Fatty infiltration of the liver. Electronically Signed: Len Vasquez MD at 13:16 EST , STUDY: ABDOMINAL ULTRASOUND - ELASTOGRAPHY REASON FOR VISIT: Male, 37 years old. Hepatomegaly and fatty infiltration of the liver. TECHNIQUE: Liver stiffness measurements were obtained on a [email or web address] RS 85 ultrasound machine using a CA 1-7 probe following the SRU guidelines. 3 measurements were obtained using a 2-D-SWE method. TheIQR/M was 9 % suggesting a quality data set. TECHNICAL QUALITY: Adequate. COMPARISON: None. FINDINGS: Liver: There is no demonstrated mass lesion. Median liver stiffness measured 8.6 kPa. Abdomen: There is no demonstrated mass lesion. US/ABD Limited w/ Elastography IMPRESSION: Liver stiffness measures 8.6 kPa compatible with F2-F3 (Mild to moderate liver fibrosis) Metavir score. Electronically Signed: Len Vasquez MD at 13:17 EST ,
--- OUTSIDE RECORDS SUMMARY | 2023-04-21 08:26 | XMS RPT_ITS | CCD ---
Author Name Unknown Address [address] [place] [address] Organization [facility] Care Team Providers Care Floor Sweeper Name Role Phone PROVIDER, UNKNOWN Attending Unavailable PROVIDER, UNKNOWN Admitting Unavailable MOHAMMED, MORTADA Primary Care Unavailable SHAHEED WANG Referring Unavailable GARCÍA IVY Admitting Unavailable PROVIDER, UNKNOWN Attending Unavailable SHAHEED WANG HTerir Referring Unavailable GARCÍA IVY Admitting Unavailable ABDOUL WEAVER Attending Unavailable BRITTNEY WANGOTHY HTerri Referring Unavailable GARCÍA IVY Admitting Unavailable PROVIDER, UNKNOWN Attending Unavailable MOHAMMED, MORTADA Primary Care Unavailable PROVIDER, UNKNOWN Attending Unavailable THUY STRONG Referring Unavailable PROVIDER, UNKNOWN Admitting Unavailable PROVIDER, UNKNOWN Attending Unavailable GARCÍA IVY Referring Unavailable PROVIDER, UNKNOWN Admitting Unavailable PROVIDER, UNKNOWN Attending Unavailable GARCÍA IVY Referring Unavailable PROVIDER, UNKNOWN Admitting Unavailable PROVIDER, UNKNOWN Attending Unavailable GARCÍA IVY Referring Unavailable PROVIDER, UNKNOWN Admitting Unavailable EDWIN EARL Referring Unavailable MOHAMMED, MORTADA Primary Care Unavailable PROVIDER, UNKNOWN Attending Unavailable PROVIDER, UNKNOWN Admitting Unavailable PROVIDER, UNKNOWN Attending Unavailable PROVIDER, UNKNOWN Admitting Unavailable MOHAMMED, MORTADA Primary Care Unavailable PROVIDER, UNKNOWN Attending Unavailable PROVIDER, UNKNOWN Admitting Unavailable MOHAMMED, MORTADA Primary Care Unavailable ROLANDA, CYNTHIA PA-C Primary Care Unavailable ROLANDA, CYNTHIA PA-C Attending Unavailable ROLANDA, CYNTHIA PA-C Admitting Unavailable ROLANDA, CYNTHIA PA-C Admitting Unavailable ROLANDA, CYNTHIA PA-C Primary Care Unavailable ROLANDA, CYNTHIA PA-C Attending Unavailable ANA MOTA MD Admitting Unavailable ANA MOTA MD Primary Care Unavailable ANA MOTA MD Attending Unavailable Problems Problem Classification Problem Date Documented Da te Episodic/Chronic Acute and unspecified renal failure (1 source) Acute kidney failure, unspecified; Translations: [Acute kidney failure, unspecified] Onset: 04-30-2022 Episodic Congestive heart failure; nonhypertensive (3 sources) Heart failure, unspecified; Translations: [Heart failure, unspecified] Onset: 04-30-2022 Chronic Respiratory failure; insufficiency; arrest (adult) (2 sources) Acute respiratory failure with hypoxia; Translations: [Acute respiratory failure with hypercapnia] Onset: 04-30-2022 Episodic Results Test Name Value Interpretation Reference Range Facil ity Encounters Encounter Date Encounter Type Care Provider Facility Start: 05-20-2022 End: 05-20-2022 ambulatory [facility] Start: 05-14-2022 End: 05-14-2022 ambulatory [facility] Start: 04-30-2022 End: [facility]ulatory EDWIN EARL Facili ty:[facility] Start: 12-28-2020 ambulatory UNKNOWN PROVIDER Facili ty:[facility] Start: 12-22-2020 ambulatory UNKNOWN PROVIDER Facili ty:[facility] Start: 12-21-2020 ambulatory UNKNOWN PROVIDER Facili ty:[facility] Start: 12-11-2020 End: 12-12-2020 ambulatory UNKNOWN PROVIDER Facility:[facility] Start: 12-09-2020 End: 12-11-2020 ambulatory UNKNOWN PROVIDER Facility:[facility] Start: 12-07-2020 ambulatory SHAHEED WANG Facili ty:[facility] Start: 12-06-2020 ambulatory SHAHEED WANG Facili ty:[facility] Start: 12-06-2020 End: 12-19-2020 Evaluation and management of inpatient SHAHEED WANG Facility:[facility] Start: 12-04-2020 ambulatory UNKNOWN PROVIDER Facili ty:[facility] Payers Date Payer Category Payer Medicaid [id number] 2013 Medicaid [id number] 1985 Unknown [id number] 2.16. [id number] 1985 Unknown [id number] 2.16. [id number] 1986 Unknown [id number] 2.16. [id number] 1986 Unknown [id number] 2.16. [id number]. 1986 Unknown [id number] 2.16. [id number]. 1986 Unknown [id number] 2.16. 840.1.569541.3.579.2. 1986 Unknown [id number] 2.16. 840.1.676279.3.579.2. 1986 Unknown [id number] 2.16. 840.1.669348.3.579.2. 1986 Unknown [id number] 2.16. 840.1.510474.3.579.2. 1986 Unknown [id number] 2.16. 840.1.819901.3.579.2. 1986 Unknown [id number] 2.16. 840.1.563503.3.579.2.2 1986 Unknown [id number] 2.16.84 0.1.242791.3.579.2.651 1986 Unknown [id number] 2.16.84 0.1.616213.3.579.2.651 1986 Unknown [id number] 2.16.84 [id number] Clinical Notes 12-07-2020 to 12-19-2020 Note Date & Type Note Facility 12-19-2020 Note PHYSICAL THERAPY PRO VANDANA SUMMARY Patient seen from 1000 to 1030 on 974-02 unit for 30 minute treatment. SUBJECTIVE: Patient Subjective/Goals: pt agreeable to therapy upon PT arrival, no compliants OBJECTIVE: Appearance: Obese, IV and Palacios Behavior: WFL Pain: Site/Location: nono; Pain Scale: 0/10 Pain Relief Interventions Implemented: None required; No pain at this time Mobility NA Dep Max Mod Min CG CS DS NC I Comment Sit to/from stand x Walking on level surface x 150 feet x 3 with no device Gait Analysis: pt ambulating with functional gait speed, wide LILIANA with decreased step length, no LOB. Vitals monitored throughout session. On RA throughout pt SpO2 at rest 94%, pt dropping to 90% with exertion returning quickly to 94% with seated rest. At end of first trial pt dropped to 89% for <5 seconds. HR at rest 95 bpm increasing to 130 bpm with exertion and returning to baseline 95% within 30 seconds. Pt denying SOB throughout trials. At end of trial 3 pt peripheral IV became dislodged. Nursing notified and pt handed off to nursing for further management directly from therapy care. Stand to sit x Functional Endurance: Fair. Pt tolerating increased activity volume On RA remaining 90 or > throughuot except momentary desat at end of trial 1. Seated rest 2-3 minutes between gati trials Sitting Balance: Static:good no UE support Dynamic:good Standing Balance: Static: good without assistive device Dynamic:good without assistive device Patient/Family Education: Instructed Patient in roles, goals, treatment plan: demonstrated good verbal understanding. Patient up sitting EOB} with call light in reach. Nursing present delivering services with pt upon therapy departure DME: With Patients permission ordered no equipment via [employer] Order. If any questions contact [facility] DME Provider at [phone]. 6 Clicks Basic Mobility PT 12/19/2020 Difficulty turning over in bed 4 Difficulty sitting down and standing up from a chair with arms 4 Difficulty moving from lying on back to sitting on the side of the bed 4 Help from another person moving to and from bed to a chair 4 Help from another person to walk in hospital room 4 Help from another person climbing 3-5 steps with a railing 3 PT 6 Clicks Score 23 6 Click Score Guidelines: 1 - Total = Requires total assistance, or cannot do at all. 2 - A lot = Requires a lot of help (maximun to moderate assistance) Can use assistive devices. 3 - A little = Requires a little help (supervision, minimal assistance) Can use assistive devices. 4 - None = Does not require any help and does the activity independently. Can use assistive devices. ??? ASSESSMENT: Patient is functionally appropriate for discharge home once medically cleared. Will continue to follow patient while in hospital as appropriate. Recommend home vs outpatient PT at [place] pending functional levels and nursing needs. Revised Goals: Goals (to be achieved by???10???days or by discharge from acute care):?Continue with current goals as stated/revised below:? 1. Patient will increase bed mobility to???modified independent?GOAL MET 2. Patient will perform???transfer bed to/from chair???with no AD???with close supervision?GOAL MET 2. REVISED GOAL???Patient will perform???transfer bed to/from chair???with no AD???with???modified independent 3. Patient will ambulate???150???feet with no AD???with close supervision, sats >90%?GOAL MET 3. ???REVISED GOAL Patient will ambulate???150???feet with no AD???with???modified independent, sats >90% 4. Patient will ascend/descend???12???stairs with single???rail(s) and no AD???with close supervision, sats >90% 5. Patient will increase ROM/Strength/Endurance/Balance to allow for above goals. 6. Patient/Family independent with exercise program/precautions PLAN: Continue with plan per Initial Evaluation Deshaun Fermin PT, DPT NA = Not Assessed, I = Independent, NC = Modified Independent, Sup = Supervised, Set up = Physical Assistance for Set-up Only, Min = Minimal Assistance, Mod = Moderate Assistance, Max = Maximal assistance; Dep = Dependent; AROM = Active Range of Motion; PROM = Passive Range of Motion; MMT = Manual Muscle Test [facility] [employer] [facility] 12-19-2020 Note OCCUPATIONAL THERAPY PROGRESS SUMMARY Patient seen from 8:50 AM to 9:22 AM on 9 C unit for 32 minute treatment. SUBJECTIVE: Patient Subjective/Goals I need to find a ride home. OBJECTIVE: Pain: 05/10 left knee Pain Relief Interventions Implemented: Notified Nurse Appearance/Behavior: Patient supine in bed, obese, cooperative Cognition: A+OX3 UE Status: BUE WFL for ADL Self Care: Assistance Level NA Dep Max Mod Min CG CS DS NC I Set-Up Cues Comment Feeding x Grooming/ Hygiene x Bathing: Upper Body X Standing at sink Bathing: Lower Body X Chair to walker level to reach melecio area/buttocks needing verbal cues for thoroughness Dressing: Upper Body X Doff/don gown at walker level Dressing: Lower Body X Doff/don socks seated at commode Toileting X Hygiene Toilet Transfers X Functional mobility in room without device Bed Transfer X Functional mobility in room without device Bed Mobility X Supine to sit EOB Patient sitting EOB with call light/phone within reach. Endurance for Self Care: Fair Patient/Family Education: Educated energy conservation techniques incorporating compensatory methods to assist self care capabilities. DME: With Patients permission ordered no equipment via [employer] Order. If any questions contact [facility] DME Provider at [phone]. 6 Clicks Daily Activity OT 12/19/2020 Help from another person Eating meals 4 Help from another person taking care of personal grooming 4 Help from another person bathing 3 Help from another person putting on and taking off regular upper body clothing 4 Help from another person putting on and taking off regular lower body clothing 3 Help from another person toileting 3 OT 6 Clicks Score 21 6 Click Score Guidelines: 1 - Unable = Total/Dependent Assist 2 - A lot = Max/Moderate Assist 3 - A little = Minimum/Contact Guard Assist/Supervision 4 - Non = Modified [place]/Independent ASSESSMENT: Patient is functionally appropriate for discharge home once medically cleared. Will continue to follow patient while in hospital as appropriate Goals (to be achieved by discharge from acute care):???ONGOING Patient will perform grooming with???Modified Independent - MET Patient will dress upper body with???Modified Independent Patient will dress lower body with???Modified Independent???with PRN AE Patient will perform bed mobility with???Modified Independent - MET Patient will perform bathing with???Modified Independent Patient will perform toileting with???Modified Independent Patient will perform bed transfers with???Modified Independent Patient will perform commode transfers with???Modified Independent Patient will increase???dynamic???balance to good???for safe completion of standing ADLs Patient will increase endurance sufficient to perform???15 minute ADLs with PRN rest breaks??? Patient will safely perform simple homemaking tasks at?Distant supervision???level PLAN: Continue with Plan as per Initial Evaluation. Behzad Singh RODRIGUES/L NA = Not Assessed, I = Independent, NC = Modified Independent, Sup = Supervised, Set up = Physical Assistance for Set-up Only, Min = Minimal Assistance, Mod = Moderate Assistance, Max = Max assistance; Dep = Dependent; AROM = Active Range of Motion;PROM=Passive Range of Motion; MMT = Manual Muscle Test; Shld= Shoulder; Add = Adduction; Abd = Abduction [facility] 12-19-2020 Note Attestation signed by Abdoul Weaver MD at 12/19/2020 8:49 PM Teaching Physician Note: I saw and evaluated the patient. I personally obtained the alvarado and critical portions of the history and physical exam. I reviewed the resident's documentation and discussed the patient with the resident. I agree with the resident's medical decision making as documented in the resident's note. 35 year old M with PMH of HTN, morbid obesity who presented 12/06 with AHHRF 2/2 acute on chronic diastolic HF and SYMONE/OHS. Initially admitted to MICU and required BPAP and IV diuresis. Also started on BPAP. Transferred to F. Continuing diuresis and changed to PO for homegoing. Has had adequate diuresis with PO. AHHRF ADHF SYMONE/OHS Morbid obesity HTN - Changed to PO diuresis yesterday with good response - Ensured BPAP for homegoing; brought to bedside - Plan for home PT/OT on discharge - Outpatient f/u with PCP and consideration of bariatric surgery Sukhjinder Weaver MD Internal Medicine, Chief Resident Pager: [phone] DISCHARGE SUMMARY [address] [address] Isela Myles Date of : 1985 35 year old male Attending Abdoul Weaver MD Date of Admission 12/06/2020 Date of Discharge 12/19/2020 [Principal Hospital Problem (Final Diagnosis)] Acute respiratory failure with hypoxia and hypercapnia (HCC) [Secondary Hospital Problems] Acute on chronic diastolic heart failure (HCC) Class 3 severe obesity with body mass index (BMI) of 60.0 to 69.9 in adult (HCC) Discharge Procedure Orders Basic Metabolic Panel Standing Status: Future Standing Exp. Date: 01/19/21 Magnesium Standing Status: Future Standing Exp. Date: 01/19/21 Sleep Lab Studies Service Requests Standing Status: Future Standing Exp. Date: 12/15/21 HEART FAILURE CONSULT SERVICE REQUEST PFT per Protocol Service Request Standing Status: Future Standing Exp. 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 Nose: Nose normal. Mouth/Throat: Mouth: Mucous membranes are moist. Eyes: Pupils: Pupils are equal, round, and reactive to light. Cardiovascular: Rate and Rhythm: Normal rate and regular rhythm. Pulses: Normal pulses. Heart sounds: Normal heart sounds. Pulmonary: Effort: Pulmonary effort is normal. Breath sounds: Normal breath sounds. No rales. Abdominal: General: Abdomen is flat. Palpations: Abdomen is soft. Musculoskeletal: General: Normal range of motion. Cervical back: Normal range of motion. Right lower leg: Edema present. Left lower leg: Edema present. Skin: General: Skin is warm. Neurological: General: No focal deficit present. Mental Status: He is alert. Reason for Hospitalization AHHRF Significant Findings Echo 12/07/20 Technically difficult study. Left ventricular systolic function is normal. The left ventricular ejection fraction (LVEF) is 60% +/- 5% No hemodynamically significant valve disease by Doppler exam only. The pulmonary artery systolic pressure could not be estimated. CXR 12/06 IMPRESSION: Pulmonary vascular congestion with or without superimposed infection. Hospital Course Patient is a 35yo male with hx HTN and chronic migraines who presented with cough, SOB, and headache. Admitted with acute hypercapnic, hypoxic respiratory failure. COVID negative.???OHS/SYMONE leading to likely HFpEF and pHTN, fluid overload. Cannot rule out underlying OLD. Diuresis with lasix and creatinine maintained within normal limits. Wearing BiPAP at night with NC during the day. Weight management did see patient during hospital stay, and will need follow up.???Weight down 40+ since admission. Patient responded well to aggressive diuresis (over 4L per day). BMPs remained WNL throughout diuresis on GMF. Was switched to PO bumex 2g BID to meet goal of 4L, which we are discharging him with, along with BiPAP. He no longer requires supplemental oxygen. Will repeat BMP outpatient in 1 week and will follow up with heart failure in 1 week, at a doctor near his home in [facility] (however, he is willing to come back to [facility] for his follow up if needed, though he lives 90 minutes away). Will also have a sleep study outpatient for BiPAP adjustment. I provided the patient and/or family/surrogate with the following information (more content not included)... [facility] 12-15-2020 Note PHYSICAL THERAPY PRO VANDANA SUMMARY Patient seen from 3:13pm to 3:43pm on unit for 30 minute treatment. SUBJECTIVE: Patient Subjective/Goals: I feel like I did pretty good on the steps. OBJECTIVE: Appearance: Obese and Palacios Behavior: Awake, Cooperative Pain: Site/Location: none; Mobility NA Dep Max Mod Min CG CS DS NC I Comment Sit to/from stand x Walking on level surface x 150 feet x 2 with no device Gait Analysis: Wide Base of support Stairs x 4 stairs intermittent use of bilateral rails Stand to sit x Functional Endurance: impaired Vital Signs At Rest: spO2 95 on 0 L/min via NC; HR 101 With activity: Lowest spO2 89 on 0 L/min via NC; HR 132. (Patient would drop to 89 for a few seconds then increase to 90-91) After sitting spO2 dropped to 86 for a few seconds then returned to 92 in less than 30 sec with pursed lip breathing) At end of session: spO2 95 on 0 L/min via NC; HR 103 Sitting Balance: Static:good Dynamic:good Standing Balance: Static: good without assistive device Dynamic:good without assistive device Patient/Family Education: Instructed Patient in roles of therapy. Patient up seated at edge of bed with call light in reach. ??? DME: With Patients permission ordered no equipment via [employer] Order. If any questions contact [facility] DME Provider at [phone]. 6 Clicks Basic Mobility PT 12/14/2020 Difficulty turning over in bed 4 Difficulty sitting down and standing up from a chair with arms 3 Difficulty moving from lying on back to sitting on the side of the bed 4 Help from another person moving to and from bed to a chair 3 Help from another person to walk in hospital room 3 Help from another person climbing 3-5 steps with a railing 3 PT 6 Clicks Score 20 6 Click Score Guidelines: 1 - Total = Requires total assistance, or cannot do at all. 2 - A lot = Requires a lot of help (maximun to moderate assistance) Can use assistive devices. 3 - A little = Requires a little help (supervision, minimal assistance) Can use assistive devices. 4 - None = Does not require any help and does the activity independently. Can use assistive devices. ??? ASSESSMENT: Patient is functionally appropriate for discharge home once medically cleared. Will continue to follow patient while in hospital as appropriate. Recommend home vs outpatient PT at [place] pending functional levels and nursing needs. Goals (to be achieved by???10???days or by discharge from acute care):?Continue with current goals as stated/revised below:? 1. Patient will increase bed mobility to???modified independent GOAL MET 2. Patient will perform???transfer bed to/from chair???with no AD???with close supervision GOAL MET 2. REVISED GOAL Patient will perform???transfer bed to/from chair???with no AD???with modified independent 3. Patient will ambulate???150???feet with no AD???with close supervision, sats >90% GOAL MET 3. REVISED GOAL Patient will ambulate???150???feet with no AD???with modified independent, sats >90% 4. Patient will ascend/descend???12???stairs with single???rail(s) and no AD???with close supervision, sats >90% 5. Patient will increase ROM/Strength/Endurance/Balance to allow for above goals. 6. Patient/Family independent with exercise program/precautions. ??? PLAN: Continue with plan per Initial Evaluation Zonia Elise PT NA = Not Assessed, I = Independent, NC = Modified Independent, Sup = Supervised, Set up = Physical Assistance for Set-up Only, Min = Minimal Assistance, Mod = Moderate Assistance, Max = Maximal assistance; Dep = Dependent; AROM = Active Range of Motion; PROM = Passive Range of Motion; MMT = Manual Muscle Test [facility] 12-15-2020 Note OCCUPATIONAL THERAPY PROGRESS SUMMARY Patient seen from 11:30am to 11:53am on 9c unit for 23 minute treatment. SUBJECTIVE: Patient Subjective/Goals yea lets do some moving OBJECTIVE: Pain: No pain reported or noted Pain Relief Interventions Implemented: None required; No pain at this time Appearance/Behavior: Patient seated EOB upon arrival, Obese, Oxygen, palacios, pleasant and cooperative Cognition: A AND Ox3 UE Status: BUE WFL for ADL Self Care: Assistance Level NA Dep Max Mod Min CG CS DS NC I Set-Up Cues Comment Feeding x With tray Grooming/ Hygiene x Seated EOB Bathing: Upper Body X Bathing: Lower Body X Dressing: Upper Body x Gown Dressing: Lower Body x Donning socks seated EOB Toileting x Anticipate for clothing management Toilet Transfers x Ambulates distance of bathroom with no device Bed Transfer x Sit to stand from EOB Bed Mobility x Supine to sit EOB Endurance for Self Care: Fair Patient/Family Education: Instructed Patient in roles of therapy. DME: With Patients permission ordered no equipment via [employer] Order. If any questions contact [facility] DME Provider at [phone]. 6 Clicks Daily Activity OT 12/15/2020 Help from another person Eating meals 4 Help from another person taking care of personal grooming 3 Help from another person bathing 3 Help from another person putting on and taking off regular upper body clothing 3 Help from another person putting on and taking off regular lower body clothing 3 Help from another person toileting 3 OT 6 Clicks Score 19 6 Click Score Guidelines: 1 - Unable = Total/Dependent Assist 2 - A lot = Max/Moderate Assist 3 - A little = Minimum/Contact Guard Assist/Supervision 4 - Non = Modified [place]/Independent ASSESSMENT: ASSESSMENT: Patient is functionally appropriate for discharge home once medically cleared. Will continue to follow patient while in hospital as appropriate. Goals (to be achieved by discharge from acute care): ONGOING Patient will perform grooming with???Modified Independent Patient will dress upper body with???Modified Independent Patient will dress lower body with???Modified Independent???with PRN AE Patient will perform bed mobility with???Modified Independent Patient will perform bathing with???Modified Independent Patient will perform toileting with???Modified Independent Patient will perform bed transfers with???Modified Independent Patient will perform commode transfers with???Modified Independent Patient will increase???dynamic???balance to good???for safe completion of standing ADLs Patient will increase endurance sufficient to perform???15 minute ADLs with PRN rest breaks??? Patient will safely perform simple homemaking tasks at?Distant supervision???level PLAN: Continue with Plan as per Initial Evaluation. Aby Perry OT NA = Not Assessed, I = Independent, NC = Modified Independent, Sup = Supervised, Set up = Physical Assistance for Set-up Only, Min = Minimal Assistance, Mod = Moderate Assistance, Max = Max assistance; Dep = Dependent; AROM = Active Range of Motion;PROM=Passive Range of Motion; MMT = Manual Muscle Test; Shld= Shoulder; Add = Adduction; Abd = Abduction [facility] 12-14-2020 Note PHYSICAL THERAPY PRO VANDANA SUMMARY Patient seen from 2:08 pm to 2:33pm on unit for 25 minute treatment. SUBJECTIVE: Patient Subjective/Goals: I know I put myself in this position. (re: health issues) OBJECTIVE: Appearance: Obese, IV, Oxygen and Palacios Behavior: Awake, pleasant and cooperative Pain: Site/Location: left knee; Pain Scale: 0/10 (Patient states he has pain from an old injury at times. Pain Relief Interventions Implemented: None required; No pain at this time Mobility NA Dep Max Mod Min CG CS DS NC I Comment Supine to sit x Extra time and effort to complete task. Sit to/from stand x Walking on level surface x 150 feet with no device with O2 at 2L/min Gait Analysis: Wide Base of support Stairs x Stand to sit x Functional Endurance: impaired. Vital Signs At Rest: spO2 96 on 2 L/min via NC; HR 84 With activity: spO2 92 on 2 L/min via NC; HR 121 At end of session: spO2 95 on 2 L/min via NC; HR 80 Sitting Balance: Static:good Dynamic:good Standing Balance: Static: good- without assistive device Dynamic:good- without assistive device Patient/Family Education: Instructed Patient in roles of therapy. Patient up seated at edge of bed with call light in reach. ??? DME: With Patients permission ordered no equipment via [employer] Order. If any questions contact [facility] DME Provider at [phone]. 6 Clicks Basic Mobility PT 12/14/2020 Difficulty turning over in bed 4 Difficulty sitting down and standing up from a chair with arms 3 Difficulty moving from lying on back to sitting on the side of the bed 4 Help from another person moving to and from bed to a chair 3 Help from another person to walk in hospital room 3 Help from another person climbing 3-5 steps with a railing 3 PT 6 Clicks Score 20 6 Click Score Guidelines: 1 - Total = Requires total assistance, or cannot do at all. 2 - A lot = Requires a lot of help (maximun to moderate assistance) Can use assistive devices. 3 - A little = Requires a little help (supervision, minimal assistance) Can use assistive devices. 4 - None = Does not require any help and does the activity independently. Can use assistive devices. ??? ASSESSMENT: Patient demonstrated improved mobility and oxygen saturation this date. Patient is functionally appropriate for discharge home once medically cleared. Will continue to follow patient while in hospital as appropriate. Recommend Home Physical Therapy. Goals (to be achieved by???10???days or by discharge from acute care):?Continue with current goals as stated/revised below:? 1. Patient will increase bed mobility to???modified independent GOAL MET 2. Patient will perform???transfer bed to/from chair???with no AD???with close supervision GOAL MET 2. REVISED GOAL Patient will perform???transfer bed to/from chair???with no AD???with modified independent 3. Patient will ambulate???150???feet with no AD???with close supervision, sats >90% GOAL MET 3. REVISED GOAL Patient will ambulate???150???feet with no AD???with modified independent, sats >90% 4. Patient will ascend/descend???12???stairs with single???rail(s) and no AD???with close supervision, sats >90% 5. Patient will increase ROM/Strength/Endurance/Balance to allow for above goals. 6. Patient/Family independent with exercise program/precautions. PLAN: Continue with plan per Initial Evaluation Zonia Elise PT NA = Not Assessed, I = Independent, NC = Modified Independent, Sup = Supervised, Set up = Physical Assistance for Set-up Only, Min = Minimal Assistance, Mod = Moderate Assistance, Max = Maximal assistance; Dep = Dependent; AROM = Active Range of Motion; PROM = Passive Range of Motion; MMT = Manual Muscle Test [facility] 12-14-2020 Note OCCUPATIONAL THERAPY PROGRESS SUMMARY Patient seen from 9:40 AM to 10:10 AM on 9 C unit for 30 minute treatment. SUBJECTIVE: Patient Subjective/Goals I live a hour and a half away. OBJECTIVE: Pain: 09/09 left knee Pain Relief Interventions Implemented: Notified Nurse Appearance/Behavior: Patient supine in bed with IV, O2, obese, cooperative Cognition: A+OX3 UE Status: BUE WFL to perform self care tasks tasks Self Care: Assistance Level NA Dep Max Mod Min CG CS DS NC I Set-Up Cues Comment Feeding x Grooming/ Hygiene X Washed face sitting EOB Bathing: Upper Body X Sitting EOB needing extra time Bathing: Lower Body X Sitting EOB to walker level to reach melecio area/buttocks needing assist to reach past knees Dressing: Upper Body X Doff/don gowns front/back needing extra time Dressing: Lower Body x Anticipated Toileting x Anticipated Toilet Transfers x Anticioated Bed Transfer X Stand pivot EOB to chair without device Bed Mobility X Supine to sit EOB Patient sitting EOB with call light/phone within reach. Endurance for Self Care: Fair Patient/Family Education: Educated roles/benefits of therapy. Provided energy conservation strategies and explained pursed lip breathing techniques. Educated compensatory methods to assist self care functioning. Instructed pacing techniques to increase transfer safety awareness. DME: With Patients permission ordered no equipment via [employer] Order. If any questions contact [employer] DME Provider at [phone]. 6 Clicks Daily Activity OT 12/14/2020 Help from another person Eating meals 4 Help from another person taking care of personal grooming 3 Help from another person bathing 3 Help from another person putting on and taking off regular upper body clothing 3 Help from another person putting on and taking off regular lower body clothing 3 Help from another person toileting 3 OT 6 Clicks Score 19 6 Click Score Guidelines: 1 - Unable = Total/Dependent Assist 2 - A lot = Max/Moderate Assist 3 - A little = Minimum/Contact Guard Assist/Supervision 4 - Non = Modified [place]/Independent ASSESSMENT: Patient is functionally appropriate for discharge home once medically cleared. Will continue to follow patient while in hospital as appropriate. Recommend Home Occupational Therapy. Recommend PRN family/caregiver assist for???safe completion of IADLs and community mobility??? Goals (to be achieved by discharge from acute care): ONGOING Patient will perform grooming with???Modified Independent Patient will dress upper body with???Modified Independent Patient will dress lower body with???Modified Independent???with PRN AE Patient will perform bed mobility with???Modified Independent Patient will perform bathing with???Modified Independent Patient will perform toileting with???Modified Independent Patient will perform bed transfers with???Modified Independent Patient will perform commode transfers with???Modified Independent Patient will increase???dynamic???balance to good???for safe completion of standing ADLs Patient will increase endurance sufficient to perform???15 minute ADLs with PRN rest breaks??? Patient will safely perform simple homemaking tasks at?Distant supervision???level PLAN: Continue with Plan as per Initial Evaluation. Behzad RODRIGUES/Grey NA = Not Assessed, I = Independent, NC = Modified Independent, Sup = Supervised, Set up = Physical Assistance for Set-up Only, Min = Minimal Assistance, Mod = Moderate Assistance, Max = Max assistance; Dep = Dependent; AROM = Active Range of Motion;PROM=Passive Range of Motion; MMT = Manual Muscle Test; Shld= Shoulder; Add = Adduction; Abd = Abduction [facility] [employer] [facility] 12-14-2020 Note INTERNAL MEDICINE TEAM 2 DAILY PROGRESS NOTE Patient: Isela Myles : 1985 Sex: male Room: 74/02 Admit Date: 12/06/2020 Today's Date: 12/14/2020 Length of stay: 8 day(s) HOSPITAL COURSE: Patient is a 35yo male with hx HTN and chronic migraines who presented with cough, SOB, and headache. Admitted with acute hypercapnic, hypoxic respiratory failure. COVID negative.???OHS/SYMONE leading to likely HFpEF and pHTN, fluid overload. Cannot rule out underlying OLD. Diuresis with lasix and creatinine maintained within normal limits. Wearing BiPAP at night with NC during the day. Weight management did see patient during hospital stay, and will need follow up. Weight down 40+ since admission. EVENTS IN PAST 24H: 96% on 3L. Weaning down to 2L. SUBJECTIVE: No complaints. OBJECTIVE: Patient Vitals for the past 24 hrs: BP Temp Temp src Pulse Resp SpO2 O2 Device O2 Flow Rate (l/min) 12/14/20 1046 139/82 -- -- -- -- -- -- -- 12/14/20 0754 96/42 98.3 ???F (36.8 ???C) Temporal 87 18 97 % Nasal cannula -- 12/14/20 0740 -- -- -- -- -- -- Nasal cannula 2 12/14/20 0400 98/55 98.2 ???F (36.8 ???C) Oral 76 20 92 % BiPAP -- 12/14/20 0230 -- -- -- -- -- -- BiPAP 3 12/14/20 0016 133/84 98.6 ???F (37 ???C) Temporal 93 20 97 % Nasal cannula 3 12/13/20 1830 135/74 97.1 ???F (36.2 ???C) Temporal 83 20 95 % Nasal cannula 3 12/13/20 1700 -- -- -- 84 20 94 % Nasal cannula 6 12/13/20 1600 127/89 98 ???F (36.7 ???C) Oral 89 18 90 % -- -- Is/Os Baseline Weight unknown Admission Weight 418 lbs Today's Weight BMI 68.29 Change in Weight: Current value is 423.1 lb (191.915 kg) on 12/14/2020 at 0533 +4.9 lb (2.217 kg) (1.17 %) from 418.2 lb (189.698 kg) on 12/13/2020 at 0000 (previous value) -34.1 lb (-15.483 kg) (-7.47 %) from 457.2 lb (207.398 kg) on 12/06/2020 at 2000 (first value for this admission) Intake/Output Summary (Last 24 hours) at 12/14/2020 1528 Last data filed at 12/14/2020 1245 Gross per 24 hour Intake -- Output 4525 ml Net -4525 ml In: - (0 mL/kg) Out: 4525 (23.6 mL/kg) [Urine:4525 (1 mL/kg/hr)] Net: -4525 Weight: 191.9 kg Physical Exam: Physical Exam HENT: Head: Normocephalic. Nose: Nose normal. Mouth/Throat: Pharynx: Oropharynx is clear. Eyes: Pupils: Pupils are equal, round, and reactive to light. Comments: R eye lazy, not new Cardiovascular: Rate and Rhythm: Normal rate and regular rhythm. Pulses: Normal pulses. Heart sounds: Normal heart sounds. Comments: Cannot appreciate JVD Pulmonary: Breath sounds: Wheezing present. Comments: Diffuse End expiratory wheezes Abdominal: General: There is distension. Comments: Pitting edema +1, has gone down since yesterday Musculoskeletal: Cervical back: Normal range of motion. Right lower leg: Edema present. Left lower leg: Edema present. Comments: +2 below knees, +1 above knees Skin: General: Skin is warm and dry. Neurological: General: No focal deficit present. Mental Status: He is alert. Peripheral IV Access: 12/04/20 18 gauge Right Antecubital Present on Arrival to Hospital (Active) Site Assessment WNL;Dressing intact 12/13/20 1200 Infusion Status Port #1 Capped;Patent;Positive blood return 12/13/20 1200 Number of days: 9 Peripheral IV Access: 12/06/20 Posterior;Right Hand Present on Arrival to Hospital (Active) Site Assessment WNL;Dressing intact 12/13/20 1200 Infusion Status Port #1 Capped;Patent 12/13/20 1200 Number of days: 7 Indwelling Urinary Catheter 12/06/20 1950 16 FR (Active) $ Drains / Tubes: $ [facility]/straight cath insertion, adult (supply) 12/06/201999 Site Assessment WNL 12/13/20 1354 Catheter Care Catheter tube secured 12/13/20 1354 [place] Procedure Assessment Maintain critical need for accurate I AND Os 12/13/20 1354 Urine (ml) 800 12/13/20 1354 Number of days: 7 CURRENT MEDICATIONS: Scheduled Meds * [START ON 12/15/2020] furosemide 20 mg 2x Daily Diuretic * [MAY Hold] albuterol 2.5 mg Q4H RT * [MAY Hold] albuterol 2 Puff Q4H RT * enoxaparin 60 mg 2x Daily IV Meds PRN Meds * albuterol 2.5 mg Q4H PRN * petrolatum-zinc oxide PRN * acetaminophen 650 mg Q4H PRN LAB DATA: Basic Metabolic Panel Na K Cl CO2 Gap Glu BUN Cr Ca Mg PO4 12/14/20 0337 1.9 12/14/20 0337 136 4.2 96 29 15 99 17 0.72 8.9 12/13/20228 1.9 12/13/20228 138 4.1 96 31 15 109 16 0.69 8.9 12/12/205 1.9 12/12/205 136 4.5 98 30 13 100 14 0.61 8.8 12/11/202028 4.2 CBC/PT/INR WBC RBC Hgb Hct MCV RDW Plt PT aPTT INR 12/13/20 0812 5.4 4.35 13.1 40.2 93 13.6 258 WBC/Diff None Creatinine clearance from [facility]: 130 ml/min using IBW 63.8 kg (actual weight 191.9 kg ignored) GFR from MDRD: greater than 60 age 35 yr, cr=0.72 on 12/14/2020, race White Hepatic/Biliary/Pancreas None Arterial Blood Gases None PT/INR PT aPTT INR 12/06/202040 1.14 Cardiac None Fingerstick Glucose (last 72 hours) None No results foun (more content not included)... [facility] [employer] [facility] 12-13-2020 Note INTERNAL MEDICINE TEAM 2 DAILY PROGRESS NOTE Patient: Isela Myles : 1985 Sex: male Room: [place] [id number] Admit Date: 12/06/2020 Today's Date: 12/13/2020 Length of stay: 7 day(s) HOSPITAL COURSE: Patient is a 35yo male with hx HTN and chronic migraines who presented with cough, SOB, and headache. Admitted with acute hypercapnic, hypoxic respiratory failure. COVID negative.???OHS/SYMONE leading to likely HFpEF and pHTN, fluid overload. Cannot rule out underlying OLD. Diuresis with lasix and creatinine maintained within normal limits. Wearing BiPAP at night with NC during the day. Weight management did see patient during hospital stay, and will need follow up. Weight down 40+ since admission. EVENTS IN PAST 24H: On bilevel pressure support for 7 hours OVN. SUBJECTIVE: Patient feels well, has no complaints. OBJECTIVE: Patient Vitals for the past 24 hrs: BP Temp Temp src Pulse Resp SpO2 O2 Device O2 Flow Rate (l/min) 12/13/20 1600 127/89 98 ???F (36.7 ???C) Oral 89 18 90 % -- -- 12/13/20 1400 155/95 -- -- 82 12 93 % -- -- 12/13/20 1303 -- -- -- 94 17 92 % Nasal cannula 3 12/13/20 1200 140/80 -- -- 97 21 90 % Nasal cannula 3 12/13/20 1000 114/67 -- -- 78 19 91 % Nasal cannula 3 12/13/20 0805 -- -- -- 83 14 93 % Nasal cannula 3 12/13/20 0800 127/83 97.9 ???F (36.6 ???C) Axillary 85 19 93 % BiPAP -- 12/13/20 0600 109/64 -- -- 78 17 91 % BiPAP -- 12/13/20 0400 115/71 98.5 ???F (36.9 ???C) Axillary 84 18 92 % -- -- 12/13/20 0059 -- -- -- 93 23 94 % BiPAP 6 12/13/20 0000 135/73 -- -- 94 16 94 % -- -- 12/12/20 2342 -- 98.8 ???F (37.1 ???C) Oral -- -- -- -- -- 12/12/20 2211 137/81 -- -- 95 25 95 % Nasal cannula -- 12/12/202019 139/82 98.4 ???F (36.9 ???C) Oral 91 20 89 % Nasal cannula -- 12/12/202010 -- -- -- 92 24 89 % Nasal cannula 3 12/12/201999 168/92 -- -- 91 21 93 % -- -- Is/Os Baseline Weight unknown Admission Weight 418 lbs Today's Weight BMI 67.5 Change in Weight: Current value is 418.2 lb (189.698 kg) on 12/13/2020 at 0000 -3.7 lb (-1.700 kg) (-0.89 %) from 422.0 lb (191.398 kg) on 12/12/2020 at 0000 (previous value) -39.0 lb (-17.700 kg) (-8.53 %) from 457.2 lb (207.398 kg) on 12/06/2020 at 2000 (first value for this admission) Intake/Output Summary (Last 24 hours) at 12/13/2020 1634 Last data filed at 12/13/2020 1354 Gross per 24 hour Intake 1560 ml Output 6850 ml Net -5290 ml In: 1560 (8.2 mL/kg) [P.O.:1560] Out: 6850 (36.1 mL/kg) [Urine:6850 (1.5 mL/kg/hr)] Net: -5290 Weight: 189.7 kg Physical Exam: Physical Exam HENT: Head: Normocephalic. Nose: Nose normal. Mouth/Throat: Mouth: Mucous membranes are dry. Eyes: Pupils: Pupils are equal, round, and reactive to light. Comments: Lazy right eye, not new Cardiovascular: Rate and Rhythm: Normal rate and regular rhythm. Pulses: Normal pulses. Pulmonary: Effort: Pulmonary effort is normal. Breath sounds: Normal breath sounds. Comments: Diminished d/t body habitus Labored breathing Abdominal: General: There is distension. Tenderness: There is no abdominal tenderness. Comments: Pitting edema Musculoskeletal: General: No tenderness. Cervical back: Normal range of motion. Right lower leg: Edema present. Left lower leg: Edema present. Skin: General: Skin is warm and dry. Neurological: General: No focal deficit present. Mental Status: He is alert. Peripheral IV Access: 12/04/20 18 gauge Right Antecubital Present on Arrival to Hospital (Active) Site Assessment WNL;Dressing intact 12/13/20 1200 Infusion Status Port #1 Capped;Patent;Positive blood return 12/13/20 1200 Number of days: 9 Peripheral IV Access: 12/06/20 Posterior;Right Hand Present on Arrival to Hospital (Active) Site Assessment WNL;Dressing intact 12/13/20 1200 Infusion Status Port #1 Capped;Patent 12/13/20 1200 Number of days: 7 Indwelling Urinary Catheter 12/06/20 1950 16 FR (Active) $ Drains / Tubes: $ [place]/straight cath insertion, adult (supply) 12/06/201999 Site Assessment WNL 12/13/20 1354 Catheter Care Catheter tube secured 12/13/20 1354 [place] Procedure Assessment Maintain critical need for accurate I AND Os 12/13/20 1354 Urine (ml) 800 12/13/20 1354 Number of days: 7 CURRENT MEDICATIONS: Scheduled Meds * albuterol 2.5 mg Q4H RT * albuterol 2 Puff Q4H RT * furosemide 40 mg 2x Daily Diuretic * enoxaparin 60 mg 2x Daily * docusate sodium 100 mg 2x Daily IV Meds PRN Meds * albuterol 2.5 mg Q4H PRN * petrolatum-zinc oxide PRN * ondansetron 4 mg Q4H PRN * acetaminophen 650 mg Q4H PRN LAB DATA: Basic Metabolic Panel Na K Cl CO2 Gap Glu BUN Cr Ca Mg PO4 12/13/20228 1.9 12/13/20228 138 4.1 96 31 15 109 16 0.69 8.9 12/12/20454 1.9 12/12/20454 136 4.5 98 30 13 100 14 0.61 8.8 12/11/202028 4.2 12/11/20 0030 1.9 12/11/2029 137 3.9 95 35 11 97 14 0.67 8.9 CBC/PT/INR WBC RBC Hgb Hct MCV RDW Plt PT aPTT INR 12/13/20 0812 5.4 (more content not included)... [facility] [employer] [facility] 12-13-2020 Note PHYSICAL THERAPY PRO VANDANA SUMMARY Patient seen from 1609 to 1632 on [facility] 4E unit for 23 minute treatment. SUBJECTIVE: Patient Subjective/Goals: I'll try . Pt supine in bed, agreeable to PT treatment, has not been OOB yet today. 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 Transfers X Stand step transfer to the L from bed to chair Sit to/from stand X To/from recliner chair x3 during session Walking on level surface X Amb 80 ft with no AD, wide LILIANA, required 6 LNC to maintain sats >88%. Pt takes 5 min standing rest break at window working on posture and PLB, pt reports improved breathing when standing, O2 sats increase to 96% on 6L. Amb 80 ft without AD back to room. Pt stands in front of chair x2 mins while therapist placing cushion and adjusting chair for pt. Gait Analysis: Wide Base of support Functional Endurance: decreased Sitting Balance: Static:good Dynamic:good Standing Balance: Static: good Dynamic:good Patient/Family Education: 1. Instructed Patient in roles, goals, treatment plan: demonstrated good verbal understanding. 2. Educated Patient NOT to stand or mobilize without Staff Assist to minimize fall risk and improve safety. 3. Educated patient on importance of getting OOBTC for all meals to facilitate return to baseline function Patient up in chair with call light in reach. ??? DME: With Patients permission ordered no equipment via [employer] Order. If any questions contact [facility] DME Provider at [phone]. 6 Clicks Basic Mobility PT 12/13/2020 Difficulty turning over in bed 4 Difficulty sitting down and standing up from a chair with arms 4 Difficulty moving from lying on back to sitting on the side of the bed 4 Help from another person moving to and from bed to a chair 4 Help from another person to walk in hospital room 3 Help from another person climbing 3-5 steps with a railing 3 PT 6 Clicks Score 22 6 Click Score Guidelines: 1 - Total = Requires total assistance, or cannot do at all. 2 - A lot = Requires a lot of help (maximun to moderate assistance) Can use assistive devices. 3 - A little = Requires a little help (supervision, minimal assistance) Can use assistive devices. 4 - None = Does not require any help and does the activity independently. Can use assistive devices. ??? ASSESSMENT: Patient is functionally appropriate for discharge home once medically cleared. Will continue to follow patient while in hospital as appropriate. Recommend Home Physical Therapy. Goals (to be achieved by???10???days or by discharge from acute care):??? Continue with current goals as stated/revised below: 1. Patient will increase bed mobility to???modified independent 2. Patient will perform???transfer bed to/from chair???with no AD???with close supervision 3. Patient will ambulate???150???feet with no AD???with close supervision, sats >90% 4. Patient will ascend/descend???12???stairs with sinlge???rail(s) and no AD???with close supervision, sats >90% 5. Patient will increase ROM/Strength/Endurance/Balance to allow for above goals. 6. Patient/Family independent with exercise program/precautions. PLAN: Continue with plan per Initial Evaluation Ginna Wilcox, PT, DPT NA = Not Assessed, I = Independent, NC = Modified Independent, Sup = Supervised, Set up = Physical Assistance for Set-up Only, Min = Minimal Assistance, Mod = Moderate Assistance, Max = Maximal assistance; Dep = Dependent; AROM = Active Range of Motion; PROM = Passive Range of Motion; MMT = Manual Muscle Test [facility] [employer] [facility] 12-13-2020 Note STEPDOWN UNIT DAILY PROGRESS NOTE Patient: Isela Myles : 1985 Sex: male Room: [place] [address]/ Admit Date: 12/06/2020 Today's Date: 12/13/2020 Length of stay: 7 day(s) HOSPITAL COURSE: Patient is a 35yo male with hx HTN and chronic migraines who presented with cough, SOB, and headache. Admitted with acute hypercapnic, hypoxic respiratory failure. COVID negative. EVENTS IN PAST 24H: NAEON. Given 40 lasix. Transfer order placed. Creatinine still wnl, tolerating aggressive diuresis well. SUBJECTIVE: Feeling okay, no pain or shortness of breath. OBJECTIVE: Patient Vitals for the past 24 hrs: BP Temp Temp src Pulse Resp SpO2 O2 Device O2 Flow Rate (l/min) 12/13/20 0805 -- -- -- 83 14 93 % Nasal cannula 2 12/13/20 0800 127/83 97.9 ???F (36.6 ???C) Axillary 85 19 93 % -- -- 12/13/20 0600 109/64 -- -- 78 17 91 % BiPAP -- 12/13/20 0400 115/71 98.5 ???F (36.9 ???C) Axillary 84 18 92 % -- -- 12/13/20 0059 -- -- -- 93 23 94 % BiPAP 6 12/13/20 0000 135/73 -- -- 94 16 94 % -- -- 12/12/20 2342 -- 98.8 ???F (37.1 ???C) Oral -- -- -- -- -- 12/12/20 2211 137/81 -- -- 95 25 95 % Nasal cannula -- 12/12/202019 139/82 98.4 ???F (36.9 ???C) Oral 91 20 89 % Nasal cannula -- 12/12/202010 -- -- -- 92 24 89 % Nasal cannula 3 12/12/201999 168/92 -- -- 91 21 93 % -- -- 12/12/20 1634 -- -- -- 88 18 90 % Nasal cannula 2 12/12/20 1548 150/78 98.6 ???F (37 ???C) Oral 86 18 90 % Nasal cannula 2l 12/12/20 1400 142/85 -- -- 83 23 93 % Nasal cannula 2l 12/12/20 1228 -- -- -- 94 20 -- -- -- 12/12/20 1226 -- -- -- 87 20 88 % Nasal cannula 2 12/12/20 1200 160/86 98 ???F (36.7 ???C) Oral 88 20 90 % Nasal cannula 2l 12/12/20 1000 150/80 -- -- 89 16 92 % Nasal cannula 2l 12/12/20 0949 -- -- -- 82 16 91 % -- -- 12/12/20 0945 -- -- -- 86 16 100 % Nasal cannula 2 Is/Os Baseline Weight Admission Weight Today's Weight BMI 67.5 Change in Weight: Current value is 418.2 lb (189.698 kg) on 12/13/2020 at 0000 -3.7 lb (-1.700 kg) (-0.89 %) from 422.0 lb (191.398 kg) on 12/12/2020 at 0000 (previous value) -39.0 lb (-17.700 kg) (-8.53 %) from 457.2 lb (207.398 kg) on 12/06/2020 at 2000 (first value for this admission) Intake/Output Summary (Last 24 hours) at 12/13/2020 0917 Last data filed at 12/13/2020 0600 Gross per 24 hour Intake 1680 ml Output 5700 ml Net -4020 ml In: 1680 (8.9 mL/kg) [P.O.:1680] Out: 5800 (30.6 mL/kg) [Urine:5800 (1.3 mL/kg/hr)] Net: -4120 Weight: 189.7 kg Physical Exam: Physical Exam Vitals reviewed. Constitutional: General: He is not in acute distress. Appearance: He is obese. He is not ill-appearing or toxic-appearing. Cardiovascular: Rate and Rhythm: Normal rate and regular rhythm. Heart sounds: No murmur heard. No friction rub. No gallop. Pulmonary: Effort: Pulmonary effort is normal. No respiratory distress. Comments: Upper anterior lung regions clear without rhonchi, wheezing, or crackles Abdominal: Tenderness: There is no abdominal tenderness. There is no guarding. Musculoskeletal: Comments: Trace pitting edema in dependent areas (near abdomen, etc. And improved from prior), but pitting not very apparent in LEs Skin: Coloration: Skin is not jaundiced. Neurological: Mental Status: He is alert. Comments: Converses appropriately Psychiatric: Mood and Affect: Mood normal. Behavior: Behavior normal. Thought Content: Thought content normal. Judgment: Judgment normal. Telemetry Findings: Lines/Drains Peripheral IV Access: 12/04/20 18 gauge Right Antecubital Present on Arrival to Hospital (Active) Site Assessment WNL;Dressing intact 12/13/20599 Infusion Status Port #1 Capped;Patent;Positive blood return 12/13/20599 Number of days: 9 Peripheral IV Access: 12/06/20 Posterior;Right Hand Present on Arrival to Hospital (Active) Site Assessment WNL;Dressing intact 12/13/20599 Infusion Status Port #1 Patent;Capped 12/13/20599 Number of days: 7 Indwelling Urinary Catheter 12/06/20 1950 16 FR (Active) $ Drains / Tubes: $ Palacios/straight cath insertion, adult (supply) 12/06/201999 Site Assessment WNL 12/13/20414 Catheter Care Catheter tube secured;Melecio-care performed;Performed 12/13/20414 [facility] Procedure Assessment Maintain critical need for accurate I AND Os 12/13/20414 Urine (ml) 250 12/13/20599 Number of days: 7 CURRENT MEDICATIONS: Scheduled Meds * albuterol 2 Puff Q4H RT * furosemide 40 mg 2x Daily Diuretic * enoxaparin 60 mg 2x Daily * docusate sodium 100 mg 2x Daily IV Meds PRN Meds * petrolatum-zinc oxide PRN * ondansetron 4 mg Q4H PRN * acetaminophen 650 mg Q4H PRN LAB DATA: Basic Metabolic Panel Na K Cl CO2 Gap Glu BUN Cr Ca Mg PO4 12/13/20228 1.9 12/13/20228 138 4.1 96 31 15 109 16 0.69 8.9 12/12/20454 1.9 12/12/20454 136 4.5 98 30 13 100 14 0.61 8.8 12/11/202028 4.2 12/11/200 1.9 12/11/2029 137 3.9 95 35 11 97 14 0.67 8.9 CBC/PT/INR W (more content not included)... [facility] 12-12-2020 Note OCCUPATIONAL THERAPY PROGRESS SUMMARY Patient seen from 10:30am to 10:54 on CCP4E unit for 24 minute treatment. SUBJECTIVE: Patient Subjective/Goals Yea my foot is a little too wide for that one (pt referring to sock aid) OBJECTIVE: Pain: No pain reported or noted Pain Relief Interventions Implemented: None required; No pain at this time Appearance/Behavior: Patient supine in bed, Oxygen via NC, EKG, pulse ox, BP cuff, obese, pleasant and cooperative Cognition: A AND Ox3 UE Status: BUE WFL for ADL tasks Self Care: Assistance Level NA Dep Max Mod Min CG CS DS NC I Set-Up Cues Comment Feeding x With breakfast tray Grooming/ Hygiene x Seated in bedside chair, set-up assist to obtain items Bathing: Upper Body Bathing: Lower Body Dressing: Upper Body x Gown Dressing: Lower Body x Donning socks with min assist, demonstrated use of sock aid this date however pt requires wide bariatric sock aid to practice with, educated pt on hip kit and where to purchase as well as where to purchase wider sock aid Toileting x Anticipate Toilet Transfers x Based on bed transfer Bed Transfer x Sit to stand, bed to chair with no device, wide LILIANA Bed Mobility x Supine to sit EOB Endurance for Self Care: Fair Patient/Family Education: Instructed Patient in roles of therapy. DME: With Patients permission ordered no equipment via [employer] Order. If any questions contact [facility] DME Provider at [phone]. 6 Clicks Daily Activity OT 12/12/2020 Help from another person Eating meals 4 Help from another person taking care of personal grooming 3 Help from another person bathing 3 Help from another person putting on and taking off regular upper body clothing 3 Help from another person putting on and taking off regular lower body clothing 3 Help from another person toileting 3 OT 6 Clicks Score 19 6 Click Score Guidelines: 1 - Unable = Total/Dependent Assist 2 - A lot = Max/Moderate Assist 3 - A little = Minimum/Contact Guard Assist/Supervision 4 - Non = Modified [place]/Independent ASSESSMENT: ASSESSMENT: Patient is functionally appropriate for discharge home once medically cleared. Will continue to follow patient while in hospital as appropriate. Recommend Home Occupational Therapy. Recommend PRN family/caregiver assist for safe completion of IADLs and community mobility Goals (to be achieved by discharge from acute care): Patient will perform grooming with Modified Independent Patient will dress upper body with Modified Independent Patient will dress lower body with Modified Independent with PRN AE Patient will perform bed mobility with Modified Independent Patient will perform bathing with Modified Independent Patient will perform toileting with Modified Independent Patient will perform bed transfers with Modified Independent Patient will perform commode transfers with Modified Independent Patient will increase dynamic balance to good for safe completion of standing ADLs Patient will increase endurance sufficient to perform 15 minute ADLs with PRN rest breaks Patient will safely perform simple homemaking tasks at Distant supervision level PLAN: Continue with Plan as per Initial Evaluation. Aby Perry OT NA = Not Assessed, I = Independent, NC = Modified Independent, Sup = Supervised, Set up = Physical Assistance for Set-up Only, Min = Minimal Assistance, Mod = Moderate Assistance, Max = Max assistance; Dep = Dependent; AROM = Active Range of Motion;PROM=Passive Range of Motion; MMT = Manual Muscle Test; Shld= Shoulder; Add = Adduction; Abd = Abduction [facility] 12-12-2020 Note STEPDOWN UNIT DAILY PROGRESS NOTE Patient: Isela Myles : 1985 Sex: male Room: [place] [address] Admit Date: 12/06/2020 Today's Date: 12/12/2020 Length of stay: 6 day(s) HOSPITAL COURSE: Isela Myles???is a 35 year old???male???with a history of HTN, obesity, bronchitis, and chronic migraine who presents as a transfer from [facility] increasing cough, SOB, and headache. ???He reports 3 days of morning headaches that prompted him to present to the ED. ???He also endorses one week of increasing cough with green sputum production. ???Of note, he his significant other has noticed that he occasionally stops breathing during his sleep. ???He does not follow regularly with his PCP and has never undergone a PSG. ???He does have a history of bronchitis that usually resolve with outpatient ABX treatement. ? ED course:???On presentation to the ED, he was noted to have anasarca and BMI was greater than 50. ???He was hypoxic and was started om 3L NC with improvement of SpO2 to low 90's. Vitals were notable for tachycardia (117), tachypnia (24), and hypertension (179/93). ???ABG showed pH of 7.27 with respiratory acidosis and elevated pCO2 of 82, Bicarb 41, O2 96%. Pro-BNP was elevated to 628. BiPAP was started at 12/06 at 50% FiO2. Repeat ABG showed CO2 of 106. Increased BiPAP setting to 02/05, 40%, rate of 14.? Pt improved with bipap, continuing diuretics lasix 40 mg with goal of neg 4 liters. Bipap with low FiO2 settings. EVENTS IN PAST 24H: Desaturated overnight during sleep study. SUBJECTIVE: No complaints this morning or from overnight OBJECTIVE: Patient Vitals for the past 24 hrs: BP Temp Temp src Pulse Resp SpO2 O2 Device O2 Flow Rate (l/min) 12/12/20 0600 162/99 -- -- 98 19 84 % -- -- 12/12/20 0445 -- 98.3 ???F (36.8 ???C) Oral -- -- -- -- -- 12/12/20 0400 166/94 -- -- 100 24 89 % -- -- 12/12/20 0200 163/95 -- -- 104 20 83 % -- -- 12/12/20 0111 -- -- -- 106 22 95 % Nasal cannula 3 12/12/20 0005 164/77 -- -- 96 21 87 % -- -- 12/11/20 2358 -- 98.5 ???F (36.9 ???C) Oral -- -- -- -- -- 12/11/20 2200 157/95 -- -- 94 15 91 % Nasal cannula -- 12/11/207 -- -- -- 93 16 91 % Nasal cannula 3 12/11/20 2000 137/81 98.6 ???F (37 ???C) Oral 94 -- 91 % Nasal cannula -- 12/11/20 1600 133/73 98.9 ???F (37.2 ???C) Oral 93 25 88 % Nasal cannula 3 12/11/20 1400 130/95 -- -- 91 27 88 % Nasal cannula 3 12/11/20 1204 -- -- -- 92 20 90 % -- -- 12/11/20 1200 145/81 98.4 ???F (36.9 ???C) Oral 88 18 90 % Nasal cannula 3 12/11/20 1001 160/62 -- -- 91 19 92 % Nasal cannula 3 12/11/20 0900 -- -- -- 82 16 -- Nasal cannula 3 12/11/20 0800 130/75 98.7 ???F (37.1 ???C) Oral 86 18 89 % Nasal cannula 3 12/11/20 0710 -- -- -- 90 24 94 % Nasal cannula 3 Is/Os Admission Weight Today's Weight BMI 68.11 Change in Weight: Current value is 422.0 lb (191.398 kg) on 12/12/2020 at 0000 -16.5 lb (-7.500 kg) (-3.77 %) from 438.5 lb (198.898 kg) on 12/11/2020 at 0600 (previous value) -35.3 lb (-16.000 kg) (-7.71 %) from 457.2 lb (207.398 kg) on 12/06/2020 at 2000 (first value for this admission) Intake/Output Summary (Last 24 hours) at 12/12/2020 0655 Last data filed at 12/12/2020 0451 Gross per 24 hour Intake 1260 ml Output 4860 ml Net -3600 ml In: 1440 (7.2 mL/kg) [P.O.:1440] Out: 4610 (23.2 mL/kg) [Urine:4610 (1 mL/kg/hr)] Net: -3170 Weight: 198.9 kg Physical Exam: Physical Exam Vitals reviewed. Constitutional: General: He is not in acute distress. Appearance: He is morbidly obese. He is ill-appearing. He is not toxic-appearing or diaphoretic. Interventions: Nasal cannula in place. Cardiovascular: Rate and Rhythm: Normal rate and regular rhythm. Pulses: Radial pulses are 2+ on the right side and 2+ on the left side. Heart sounds: Heart sounds are distant. Pulmonary: Effort: Tachypnea present. Breath sounds: Decreased air movement present. Examination of the right-upper field reveals decreased breath sounds. Examination of the left-upper field reveals decreased breath sounds. Examination of the right-middle field reveals decreased breath sounds. Examination of the left-middle field reveals decreased breath sounds. Examination of the right-lower field reveals decreased breath sounds. Examination of the left-lower field reveals decreased breath sounds. Decreased breath sounds present. Abdominal: General: Abdomen is protuberant. Bowel sounds are decreased. There is distension. Tenderness: There is no abdominal tenderness. There is no guarding or rebound. Comments: Pitting edema in abd Musculoskeletal: Right lower le+ Pitting Edema present. Left lower le+ Pitting Edema present. Skin: General: Skin is warm. Neurological: Mental Status: He is alert. Psychiatric: Attention and Perception: Attention normal. Mood and Affect: Mood normal. Speech: Speech normal. Behavior: Behavior normal. Thought Content: (more content not included)... [facility] 12-11-2020 Note STEPDOWN UNIT DAILY PROGRESS NOTE Patient: Isela Myles : 1985 Sex: male Room: [place] [address] Admit Date: 12/06/2020 Today's Date: 12/11/2020 Length of stay: 5 day(s) HOSPITAL COURSE: Patient is a 35yo male with hx HTN and chronic migraines who presented with cough, SOB, and headache. Admitted with acute hypercapnic, hypoxic respiratory failure. COVID negative. EVENTS IN PAST 24H: Overnight switched from 3L NC to bipap, then back to 3L NC. Getting 40 lasix BID. NAONE. SUBJECTIVE: Feeling good today. Denies SOB, chest pain, cough. Is eating and drinking okay. OBJECTIVE: Patient Vitals for the past 24 hrs: BP Temp Temp src Pulse Resp SpO2 O2 Device O2 Flow Rate (l/min) FiO2 (%) 12/11/20 1400 130/95 -- -- 91 27 88 % Nasal cannula 3 -- 12/11/20 1204 -- -- -- 92 20 90 % -- -- -- 12/11/20 1200 145/81 98.4 ???F (36.9 ???C) Oral 88 18 90 % Nasal cannula 3 -- 12/11/20 1001 160/62 -- -- 91 19 92 % Nasal cannula 3 -- 12/11/20 0900 -- -- -- 82 16 -- Nasal cannula 3 -- 12/11/20 0800 130/75 98.7 ???F (37.1 ???C) Oral 86 18 89 % Nasal cannula 3 -- 12/11/20 0710 -- -- -- 90 24 94 % Nasal cannula 3 -- 12/11/20 0610 -- -- -- -- -- -- Nasal cannula 3 -- 12/11/20 0607 146/72 -- -- 105 26 85 % Nasal cannula 3 -- 12/11/20 0500 -- -- -- -- -- -- Nasal cannula 3 -- 12/11/20 0414 -- -- -- 92 21 93 % Nasal cannula 3 -- 12/11/20 0413 -- -- -- 92 22 92 % Nasal cannula 3 -- 12/11/20 0400 147/83 -- -- 86 19 93 % BiPAP -- -- 12/11/20 0300 -- -- -- -- -- -- BiPAP -- -- 12/11/20 0200 137/85 -- -- 93 20 -- BiPAP -- -- 12/11/20 0100 -- -- -- -- -- -- BiPAP -- -- 12/11/202 -- -- -- 98 15 91 % BiPAP -- 50 12/11/20 0051 -- -- -- 90 19 91 % Nasal cannula 3 -- 12/11/20 0000 149/82 99.4 ???F (37.4 ???C) Oral 89 29 93 % Nasal cannula 3 -- 12/10/20 2350 -- -- -- -- -- -- Nasal cannula 3 -- 12/10/20 220 158/91 -- -- 91 24 94 % Nasal cannula 3 -- 12/10/202099 -- -- -- -- -- -- Nasal cannula 3 -- 12/10/202027 -- -- -- 90 23 93 % Nasal cannula 3 -- 12/10/202026 -- -- -- 89 21 93 % Nasal cannula 3 -- 12/10/201999 135/86 98.3 ???F (36.8 ???C) Oral 98 22 85 % Nasal cannula 3 -- 12/10/201936 -- -- -- -- -- -- Nasal cannula 3 -- 12/10/20 1900 -- -- -- -- -- -- Nasal cannula 3 -- 12/10/20 181 -- -- -- 84 18 91 % Nasal cannula 3 -- 12/10/20 1808 -- -- -- 90 19 92 % Nasal cannula 3 -- 12/10/20 1800 145/74 -- -- 89 20 93 % Nasal cannula 3 -- 12/10/20 1600 152/80 98.4 ???F (36.9 ???C) Oral 90 19 91 % Nasal cannula 3 -- Is/Os Baseline Weight Admission Weight Today's Weight BMI 70.77 Change in Weight: Current value is 438.5 lb (198.898 kg) on 12/11/2020 at 0600 -6.4 lb (-2.900 kg) (-1.44 %) from 444.9 lb (201.798 kg) on 12/10/2020 at 0000 (previous value) -18.7 lb (-8.500 kg) (-4.10 %) from 457.2 lb (207.398 kg) on 12/06/2020 at 2000 (first value for this admission) Intake/Output Summary (Last 24 hours) at 12/11/2020 1554 Last data filed at 12/11/2020 1400 Gross per 24 hour Intake 1420 ml Output 6300 ml Net -4880 ml In: 1420 (7.1 mL/kg) [P.O.:1420] Out: 6350 (31.9 mL/kg) [Urine:6350 (1.3 mL/kg/hr)] Net: -4930 Weight: 198.9 kg Physical Exam: Physical Exam Vitals reviewed. Constitutional: General: He is not in acute distress. Appearance: He is obese. He is not ill-appearing or toxic-appearing. Cardiovascular: Comments: Nl S1/S2 w/o MRG Pulmonary: Effort: Pulmonary effort is normal. No respiratory distress. Comments: Breath sounds distant in upper anterior lung regions. Abdominal: Tenderness: There is no abdominal tenderness. Musculoskeletal: Comments: 2+ pitting edema noted in proximal LEs and abdominal pannus, not so much pretibially Skin: Comments: No overt jaundice observed. Neurological: Mental Status: He is alert. Comments: Converses appropriately. Psychiatric: Mood and Affect: Mood normal. Behavior: Behavior normal. Thought Content: Thought content normal. Judgment: Judgment normal. Lines/Drains Peripheral IV Access: 12/04/20 18 gauge Right Antecubital Present on Arrival to Hospital (Active) Site Assessment WNL;Dressing intact 12/11/20 1240 Infusion Status Port #1 Capped 12/11/20 1240 Number of days: 7 Peripheral IV Access: 12/06/20 Posterior;Right Hand Present on Arrival to Hospital (Active) Site Assessment WNL;Dressing intact 12/11/20 1240 Infusion Status Port #1 Capped 12/11/20 1240 Number of days: 5 Indwelling Urinary Catheter 12/06/20 1950 16 FR (Active) $ Drains / Tubes: $ [facility]ios/straight cath insertion, adult (supply) 12/06/201999 Site Assessment WNL 12/11/20 1400 Catheter Care Catheter tube secured 12/11/20 1400 [facility] Procedure Assessment Maintain critical need for accurate I AND Os 12/11/20 1400 Urine (ml) 255 12/11/20 1400 Number of days: 5 CURRENT MEDICATIONS: Scheduled Meds * albuterol 2 Puff Q4H RT * furosemide 40 mg 2x Daily Diuretic * enoxaparin 60 mg 2x Daily * docusate sodium 100 mg (more content not included)... [facility] 12-11-2020 Note PHYSICAL THERAPY PRO VANDANA SUMMARY Patient seen from 1434 to 1458 on 4E unit for 24 minute treatment. SUBJECTIVE: I had all these migraines, that's why I came in OBJECTIVE: Appearance: Pt supine at onset, hep locked IV, palacios, 3L o2 via NC, obese Behavior: WFL Pain: Site/Location: pt denies pain Mobility NA Dep Max Mod Min CG CS DS NC I Comment Supine to sit x HOB minimally elevated, use of R bed rail Sit to/from stand x vc to push from bed, up w/o AD Walking on level surface x 75'x2 with no device Gait Analysis: slow griselda, mild lateral sway and Wide Base of support; moderate SOB with cues for pursed lips breathing Stairs x 4 stairs with omid rails, non-reciprocal pattern, moderate SOB, no LOB Stand to sit x Good eccentric control to chair Pt performed seated 1x15 ankle pumps, 2x15 LAQ, and marching Functional Endurance: decreased from baseline Pt desats to 85% twice during ambulation, however improves quickly >90% with cues for PLB Sitting Balance: WFL Standing Balance: Fair(+) with no AD Patient/Family Education: Instructed patient in Exercise Program for Ankle pumps, Heel slides, Long arch quad, Straight leg raises and Sitting marching x10-20/hr while sitting or supine to ameliorate the effects of immobility Encouraged patient to use IS x10/hr for pulmonary hygiene. Patient up in chair with call light in reach. ???Instructed patient to sit in chair x 1 hr and call for nursing for assist back to bed, patient verbalized understanding. DME: With Patients permission ordered no equipment via [employer] Order. If any questions contact [facility] DME Provider at [phone]. 6 Clicks Basic Mobility PT 12/11/2020 Difficulty turning over in bed 4 Difficulty sitting down and standing up from a chair with arms 3 Difficulty moving from lying on back to sitting on the side of the bed 3 Help from another person moving to and from bed to a chair 3 Help from another person to walk in hospital room 3 Help from another person climbing 3-5 steps with a railing 3 PT 6 Clicks Score 19 6 Click Score Guidelines: 1 - Total = Requires total assistance, or cannot do at all. 2 - A lot = Requires a lot of help (maximun to moderate assistance) Can use assistive devices. 3 - A little = Requires a little help (supervision, minimal assistance) Can use assistive devices. 4 - None = Does not require any help and does the activity independently. Can use assistive devices. ??? ASSESSMENT: Pt's primary limitation with mobility is impaired endurance. Patient is functionally appropriate for discharge home once medically cleared. Will continue to follow patient while in hospital as appropriate. Recommend Home Physical Therapy. Goals (to be achieved by 10 days or by discharge from acute care): 1. Patient will increase bed mobility to modified independent 2. Patient will perform transfer bed to/from chair with no AD with close supervision 3. Patient will ambulate 150 feet with no AD with close supervision, sats >90% 4. Patient will ascend/descend 12 stairs with sinlge rail(s) and no AD with close supervision, sats >90% 5. Patient will increase ROM/Strength/Endurance/Balance to allow for above goals. 6. Patient/Family independent with exercise program/precautions. PLAN: Continue with plan per Initial Evaluation Peterson MARIELLE [place] pager [phone] NA = Not Assessed, I = Independent, NC = Modified Independent, Sup = Supervised, Set up = Physical Assistance for Set-up Only, Min = Minimal Assistance, Mod = Moderate Assistance, Max = Maximal assistance; Dep = Dependent; AROM = Active Range of Motion; PROM = Passive Range of Motion; MMT = Manual Muscle Test [facility] 12-10-2020 Note STEPDOWN UNIT DAILY PROGRESS NOTE Patient: Isela Myles : 1985 Sex: male Room: [place] [address] Admit Date: 12/06/2020 Today's Date: 12/10/2020 Length of stay: 4 day(s) HOSPITAL COURSE: Isela Myles???is a 35 year old???male???with a history of HTN, obesity, bronchitis, and chronic migraine who presents as a transfer from [facility] increasing cough, SOB, and headache. ???He reports 3 days of morning headaches that prompted him to present to the ED. ???He also endorses one week of increasing cough with green sputum production. ???Of note, he his significant other has noticed that he occasionally stops breathing during his sleep. ???He does not follow regularly with his PCP and has never undergone a PSG. ???He does have a history of bronchitis that usually resolve with outpatient ABX treatement. ? ED course:???On presentation to the ED, he was noted to have anasarca and BMI was greater than 50. ???He was hypoxic and was started om 3L NC with improvement of SpO2 to low 90's. Vitals were notable for tachycardia (117), tachypnia (24), and hypertension (179/93). ???ABG showed pH of 7.27 with respiratory acidosis and elevated pCO2 of 82, Bicarb 41, O2 96%. Pro-BNP was elevated to 628. BiPAP was started at 10/6 at 50% FiO2. Repeat ABG showed CO2 of 106. Increased BiPAP setting to 12/6, 40%, rate of 14.? Pt improved with bipap, continuing diuretics lasix 40 mg with goal of neg 4 liters. Bipap with low FiO2 settings. EVENTS IN PAST 24H: BiPAP overnight-2 hrs. SUBJECTIVE: Pt states he is feeling better, reports his shortness of breath is improving. Denies chest pain, abdominal pain, leg pain, headache, or changes in vision. OBJECTIVE: Patient Vitals for the past 24 hrs: BP Temp Temp src Pulse Resp SpO2 O2 Device O2 Flow Rate (l/min) FiO2 (%) 12/10/20 0600 110/57 -- -- 90 20 90 % -- -- -- 12/10/20 0400 108/63 98.3 ???F (36.8 ???C) Oral 85 17 89 % Nasal cannula 3 -- 12/10/20 0324 -- -- -- 86 14 94 % Nasal cannula 3 -- 12/10/20 0200 104/66 -- -- 84 20 90 % BiPAP -- -- 12/10/20 0030 110/63 -- -- 84 21 90 % BiPAP 5 30 12/10/20 0004 -- -- -- 89 24 92 % BiPAP 5 -- 12/10/20 0000 -- 98.6 ???F (37 ???C) Oral -- -- -- -- -- -- 12/09/200 151/93 -- -- 88 20 90 % Nasal cannula 3 -- 12/09/202051 -- -- -- 91 14 92 % Nasal cannula 3 -- 12/09/202050 -- -- -- 89 19 92 % Nasal cannula 3 -- 12/09/20 2000 159/84 97.8 ???F (36.6 ???C) Oral 87 20 92 % Nasal cannula 3 -- 12/09/20 1800 152/78 -- -- 81 20 94 % Nasal cannula 3 -- 12/09/201716 -- -- -- 91 22 94 % -- -- -- 12/09/201714 -- -- -- 97 19 95 % Nasal cannula 3L -- 12/09/20 1600 147/77 97.2 ???F (36.2 ???C) Oral 84 20 91 % Nasal cannula 3 -- 12/09/20 1535 -- 97.8 ???F (36.6 ???C) Oral -- -- -- -- -- -- 12/09/20 1200 143/98 98.1 ???F (36.7 ???C) Oral 83 21 92 % -- -- -- 12/09/20 1005 109/88 -- -- 89 20 89 % Nasal cannula 3 -- 12/09/20 0900 -- -- -- -- -- 90 % Nasal cannula 3 -- 12/09/20 0830 -- -- -- -- -- 95 % Nasal cannula 2 -- 12/09/20 0800 118/76 99.1 ???F (37.3 ???C) Axillary 76 19 91 % BiPAP 9 30 Is/Os Admission Weight Today's Weight BMI 71.81 Change in Weight: Current value is 444.9 lb (201.798 kg) on 12/10/2020 at 0000 -4.2 lb (-1.900 kg) (-0.93 %) from 449.1 lb (203.698 kg) on 12/09/2020 at 0000 (previous value) -12.3 lb (-5.600 kg) (-2.70 %) from 457.2 lb (207.398 kg) on 12/06/2020 at 2000 (first value for this admission) Intake/Output Summary (Last 24 hours) at 12/10/2020 0643 Last data filed at 12/10/2020 0400 Gross per 24 hour Intake 1480 ml Output 5980 ml Net -4500 ml In: 1480 (7.3 mL/kg) [P.O.:1480] Out: 6330 (31.1 mL/kg) [Urine:5900 (1.2 mL/kg/hr)] Net: -4850 Weight: 203.7 kg Physical Exam: Physical Exam Vitals reviewed. Constitutional: General: He is not in acute distress. Appearance: He is morbidly obese. He is ill-appearing. He is not toxic-appearing or diaphoretic. HENT: Mouth/Throat: Mouth: Mucous membranes are moist. Cardiovascular: Rate and Rhythm: Normal rate and regular rhythm. Pulses: Radial pulses are 2+ on the right side and 2+ on the left side. Heart sounds: Heart sounds are distant. Pulmonary: Effort: Respiratory distress present. No tachypnea or accessory muscle usage. Breath sounds: Decreased air movement present. Decreased breath sounds present. Abdominal: Palpations: Abdomen is soft. Tenderness: There is no abdominal tenderness. Comments: Pitting edema in abdomen Musculoskeletal: Right lower le+ Edema present. Left lower le+ Edema present. Neurological: Mental Status: He is alert. Psychiatric: Attention and Perception: Attention normal. Mood and Affect: Mood normal. Speech: Speech normal. Behavior: Behavior normal. Telemetry Findings: -EKG: Sinus Tachycardia with QTC of 459 Lines/Drains Peripheral IV Access: 12/04/20 18 gauge Right Antecubital Present on Arrival to Hospital (Acti (more content not included)... [facility] 12-09-2020 Note INTERNAL MEDICINE STEPDOWN UNIT TRANSFER PROGRESS NOTE Patient: Isela Mylse : 1985 Sex: male Room: [place] [address] Admit Date: 12/06/2020 Today's Date: 12/08/2020 Length of stay: 2 day(s) HOSPITAL COURSE: Isela Myles???is a 35 year old???male???with a history of HTN, obesity, bronchitis, and chronic migraine who presents as a transfer from [facility] increasing cough, SOB, and headache. ???He reports 3 days of morning headaches that prompted him to present to the ED. ???He also endorses one week of increasing cough with green sputum production. ???Of note, he his significant other has noticed that he occasionally stops breathing during his sleep. ???He does not follow regularly with his PCP and has never undergone a PSG. ???He does have a history of bronchitis that usually resolve with outpatient ABX treatement. ? ED course: On presentation to the ED, he was noted to have anasarca and BMI was greater than 50. ???He was hypoxic and was started om 3L NC with improvement of SpO2 to low 90's. Vitals were notable for tachycardia (117), tachypnia (24), and hypertension (179/93). ???ABG showed pH of 7.27 with respiratory acidosis and elevated pCO2 of 82, Bicarb 41, O2 96%. Pro-BNP was elevated to 628. BiPAP was started at 10/6 at 50% FiO2. Repeat ABG showed CO2 of 106. Increased BiPAP setting to 12/6, 40%, rate of 14. ? Imaging/EKG: -CT chest???PE study???showed GGO on the right lower lobe but contrast was suboptimal for evaluation of pulmonary emboli. -CT head w/o contrast: No acute disease -CT Abd/pelvis showed stranding in the subcutaneous tissue anterior to the base of the penis with mild thickening of overlying skin that correlates with cellulitis. Fat containing left inguinal hernia. Diffuse fatty infiltration of the liver. Horseshoe kidney. -EKG: Sinus Tachycardia with QTC of 459 -Echo: ???Left ventricular systolic function is normal. ???The left ventricular ejection fraction (LVEF) is 60% +/- 5% ???No hemodynamically significant valve disease by Doppler exam only. ???The pulmonary artery systolic pressure could not be estimated. ??? Culture: Blood culture growing gram positive cocci x1, with other bottle no growth. Started on 2 gram of rocephin and Vanc. Zosyn given as well.? Medication: Received 40 mg of IV lasix EVENTS IN PAST 24H: Patient had sleep study overnight and currently on 2L of oxygen. Patient required 4L of oxygen during walk with PT/OT. Transferred to the SDU. SUBJECTIVE: Patient feeling well. Denies fever, chills, CP, SOB, nausea, abd pain. OBJECTIVE: Patient Vitals for the past 24 hrs: BP Temp Temp src Pulse Resp SpO2 O2 Device O2 Flow Rate (l/min) FiO2 (%) 12/08/20 2232 146/88 98.7 ???F (37.1 ???C) Oral 96 28 92 % Nasal cannula 2 -- 12/08/20 2200 136/66 -- -- 102 30 97 % -- -- -- 12/08/20 2100 131/86 -- -- 102 23 89 % -- -- -- 12/08/20 2000 142/92 98.5 ???F (36.9 ???C) Oral 97 19 93 % Nasal cannula 2 -- 12/08/20 1900 159/91 -- -- 96 29 91 % -- -- -- 12/08/20 1800 149/80 -- -- 90 21 89 % -- -- -- 12/08/20 1700 144/90 -- -- 94 20 90 % -- -- -- 12/08/20 1600 139/91 97.9 ???F (36.6 ???C) Oral 108 18 94 % Nasal cannula 2 -- 12/08/20 1500 129/60 -- -- 100 19 91 % Nasal cannula 2 -- 12/08/20 1400 140/87 -- -- 96 21 94 % -- -- -- 12/08/20 1300 146/86 -- -- 94 19 93 % -- -- -- 12/08/20 1200 156/106 99.3 ???F (37.4 ???C) Axillary 100 21 96 % CPAP -- 30 12/08/20 1158 -- -- -- -- -- -- CPAP -- 30 12/08/20 1100 171/88 -- -- 95 21 96 % -- -- -- 12/08/20 1000 149/92 -- -- 97 23 95 % -- -- -- 12/08/20 0915 -- -- -- 109 21 94 % -- -- -- 12/08/20 0800 127/104 98.6 ???F (37 ???C) Oral 103 23 92 % Nasal cannula 2 -- 12/08/20 0700 147/96 -- -- 95 20 92 % -- -- -- 12/08/20 0620 156/91 -- -- 98 23 95 % -- 2 -- 12/08/20 0600 162/85 -- -- 99 23 96 % Nasal cannula 2 -- 12/08/20 0500 143/84 -- -- 92 25 92 % -- -- -- 12/08/20 0400 137/89 99 ???F (37.2 ???C) Oral 96 22 94 % Nasal cannula 4 -- 12/08/20 0300 147/82 -- -- 111 32 93 % -- -- -- 12/08/20 0201 150/95 -- -- 99 29 95 % -- -- -- 12/08/20 0200 174/83 -- -- 101 31 95 % Nasal cannula 4 -- 12/08/20 0100 157/92 -- -- 94 21 98 % -- -- -- 12/08/20 0000 155/88 99.1 ???F (37.3 ???C) Oral 101 23 96 % Nasal cannula 4 -- 12/07/20 2300 155/141 -- -- 96 17 96 % -- -- -- Is/Os Baseline Weight Admission Weight Today's Weight BMI 73.66 Change in Weight: Current value is 456.4 lb (206.998 kg) on 12/08/2020 at 0255 -0.9 lb (-0.400 kg) (-0.19 %) from 457.2 lb (207.398 kg) on 12/07/2020 at 0600 (previous value) -0.9 lb (-0.400 kg) (-0.19 %) from 457.2 lb (207.398 kg) on 12/06/2020 at 2000 (first value for this admission) Intake/Output Summary (Last 24 hours) at 12/08/2020 2235 Last data filed at 12/08/2020 2200 Gross per 24 hour Intake 600 ml Output 7150 ml Net -6550 ml In: 360 (1.7 mL/kg) [P.O.:360] Out: 6590 (31.8 mL/kg) [Urine:6590 (1.3 mL/kg/ (more content not included)... [facility] 12-08-2020 Note MICU Progress Note Isela Myles 35 year old 457.27722 lbs MRN/Room: [id number]/CP3-123/1 Code Status: Full Code Admit Date: 12/06/2020 Length of stay: 1 day(s) Summary Isela Myles is a 35 year old male with a history of HTN, obesity, bronchitis, and chronic migraine who presents as a transfer from [facility] increasing cough, SOB, and headache. He reports 3 days of morning headaches that prompted him to present to the ED. He also endorses one week of increasing cough with green sputum production. Of note, he his significant other has noticed that he occasionally stops breathing during his sleep. He does not follow regularly with his PCP and has never undergone a PSG. He does have a history of bronchitis that usually resolve with outpatient ABX treatement. On presentation to the ED, he was noted to have anasarca and BMI was greater than 50. He was hypoxic and was started om 3L NC with improvement of SpO2 to low 90's. Vitals were notable for tachycardia (117), tachypnia (24), and hypertension (179/93). ABG showed pH of 7.27 with respiratory acidosis and elevated pCO2 of 82, Bicarb 41, O2 96%. Pro-BNP was elevated to 628. BiPAP was started at 10/6 at 50% FiO2. Repeat ABG showed CO2 of 106. Increased BiPAP setting to 12/6, 40%, rate of 14. -CT chest PE study showed GGO on the right lower lobe but contrast was suboptimal for evaluation of pulmonary emboli. -CT head w/o contrast: No acute disease -CT Abd/pelvis showed stranding in the subcutaneous tissue anterior to the base of the penis with mild thickening of overlying skin that correlates with cellulitis. Fat containing left inguinal hernia. Diffuse fatty infiltration of the liver. Horseshoe kidney. -EKG: Sinus Tachycardia with QTC of 459 -Blood culture growing gram positive cocci x1, with other bottle no growth. Started on 2 gram of rocephin and Vanc. Zosyn given as well. -Received 40 mg of IV lasix PSH: Eye surgery ( Lazy eye ) ??? FH: HTN, DM2, stroke, ovarian cancer ??? SH: Denies tobacco abuse but endorse second hand smoking exposure Drinks 5 beers a week (usually on the weekends), denies recreational drug usage. ??? Medications: None ??? Allergies: none Subjective Feels well this morning. Had sleep study overnight. Currently on 2L of oxygen Vital Signs and I/Os Vital sign ranges over the past 24 hours (retrieved 12/07/2020 at 10:30 PM): Tmax (24 hours): 98.5 ???F (36.9 ???C) Pulse Av.4 Min: 92 Max: 105 Systolic (24hrs), Av , Min:107 , Max:151 Diastolic (24hrs), Av, Min:31, Max:92 MAP (mmHg) Av.1 mmHg Min: 51 mmHg Max: 110 mmHg Resp Av Min: 15 Max: 35 SpO2 Av.9 % Min: 95 % Max: 98 % Patient Vitals for the past 24 hrs: BP Temp Temp src Pulse Resp SpO2 O2 Device O2 Flow Rate (l/min) FiO2 (%) 12/07/20 2200 147/89 -- -- 105 35 95 % Nasal cannula 4 -- 12/07/20 2114 -- -- -- 101 20 96 % Nasal cannula 4 -- 12/07/20 2100 148/84 -- -- 104 24 95 % -- -- -- 12/07/201999 151/92 -- -- 97 23 96 % Nasal cannula 4 -- 12/07/201952 -- 98.3 ???F (36.8 ???C) Oral -- -- -- -- -- -- 12/07/20 1900 135/71 -- -- 100 20 96 % -- -- -- 12/07/20 1800 132/58 -- -- 102 15 97 % -- -- -- 12/07/20 1700 116/72 -- -- 103 22 95 % -- -- -- 12/07/20 1600 127/71 97.8 ???F (36.6 ???C) Oral 100 24 95 % Nasal cannula 4 -- 12/07/20 1500 130/79 -- -- 103 28 95 % -- -- -- 12/07/20 1400 141/86 -- -- 96 18 96 % -- -- -- 12/07/20 1300 140/77 -- -- 96 17 96 % -- -- -- 12/07/20 1200 133/83 97.8 ???F (36.6 ???C) Oral 96 22 95 % Nasal cannula 4 -- 12/07/20 1119 -- -- -- -- -- -- Nasal cannula 4 -- 12/07/20 1100 115/68 -- -- 100 21 96 % -- -- -- 12/07/20 1000 136/83 -- -- 101 25 96 % -- -- -- 12/07/20 0948 -- -- -- -- -- -- Nasal cannula 4 -- 12/07/20 0946 128/72 -- -- 101 21 97 % -- -- -- 12/07/20 0805 -- 97.5 ???F (36.4 ???C) Axillary 102 20 96 % -- -- -- 12/07/20 0800 132/69 -- -- 95 17 96 % BiPAP -- 40 12/07/20 0700 114/58 -- -- 99 22 96 % -- -- -- 12/07/20 0600 118/69 -- -- 94 18 96 % -- -- -- 12/07/20 0500 133/67 -- -- 95 16 98 % -- -- -- 12/07/20 0400 122/67 98.5 ???F (36.9 ???C) Oral 97 15 95 % BiPAP -- 40 12/07/20 0300 141/66 -- -- 92 18 95 % -- -- -- 12/07/20 0200 120/68 -- -- 104 21 96 % BiPAP -- 40 12/07/20 0100 122/58 -- -- 96 21 96 % -- -- -- 12/07/20 0044 -- -- -- 98 24 97 % BiPAP -- 40 12/07/20 0000 107/31 98.4 ???F (36.9 ???C) Oral 103 19 97 % BiPAP -- 40 12/06/20 2300 143/64 -- -- 102 22 96 % -- -- -- 12/06/209 -- -- -- 102 20 96 % BiPAP -- 40 Weight From prior to hospitalization no prior weight on file During hospitalization Change in Weight: Current value is 457.2 lb (207.398 kg) on 12/07/2020 at 0600 0.0 lb (0.000 kg) from 457.2 lb (207.398 kg) on 12/06/2020 at 1999 (previous value) 0.0 lb (0.000 kg) from 457.2 lb (207.398 kg) on 12/06/2020 at 1999 (first value for this admission) I/O Intake/Output Summary (Last 24 hours) at 12/07/2020 2230 Last data file (more content not included)... [facility] 12-08-2020 Note PHYSICAL THERAPY ACU TE EVALUATION Referral received, chart reviewed. Patient seen from 839 to 907 on [facility] unit for 28 minutes. Admit date: 12/06/2020 7:21 PM Reason for Admit: headache, cough Diagnosis: Obesity hypoventilation syndrome SYMONE Acute on chronic hypercarbic and hypoxic respiratory failure Class III Extreme Obesity (BMI 74) Precautions: Full code Regular diet Progressive mobility Procedures this admit: 12/07/20: echo Imaging: CT Abd/pelvis: stranding in the subcutaneous tissue anterior to the base of the penis with mild thickening of overlying skin that correlates with cellulitis. Fat containing left inguinal hernia. Diffuse fatty infiltration of the liver. Horseshoe kidney. Past Medical and Surgical History: PMH: Past Medical History: Diagnosis Date * HTN (hypertension) PSH: No past surgical history on file. Identification was verified by patient verbalizing his/her name and date of . 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 Pt living in 2 story home alone. Pt reports no falls in the past 6 months. Pt independent with ADL's, reports he isn't prescribed any medications. Home: 2 steps to enter with rails. 12 steps to bedroom with rails. 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 Oximeter, Oxygen (2L initially, increased to 4L for mobility) and Palacios Behavior: Awake, alert, cooperative Orientation: Date: December 06, 2020 Location: [facility] Follows 2 step commands consistently Pain: 0/10 Passive ROM: WFL, hip flex slightly limited only by body habitus Strength/Active ROM: Impaired RIGHT LE MMT -Hip flexion 4-/5 (difficulty d/t swelling and weight of legs) -Knee extension 4/5 -Knee flexion 4/5 -Ankle DF 4+/5 -Ankle PF 4+/5 LEFT LE MMT -Hip flexion 4-/5 (difficulty d/t swelling and weight of legs) -Knee extension 4/5 -Knee flexion 4/5 -Ankle DF 4+/5 -Ankle PF 4+/5 Transfers/Bed Mobility Assistance Level Dep Max Mod Min CG CS DS NC I Set-Up Comment Rolling X To the R to remove wedge prior to EOB Supine to Sit X Mattress deflated prior to transition EOB d/t short stature and height of bed. Min to come EOB to the L, assist needed with trunk. Sit to/from Stand X To/from EOB x2, to/from standard chair x2 Ambulation X Pt amb 40' x2 in room, wide LILIANA, no AD. 1st attempt: pt on 2L desatted to 83%, RR 43, however pt reports no SOB. 2nd Attempt: on 4L desatted to 93%, RR 38, again no reports of SOB Theract: -Pt able to stand x2 mins at bedside with CGA to wash face and assess standing tolerance prior to first bout of gait. Endurance: Impaired Patient/Family Education: Instructed Patient in roles, goals, treatment plan: demonstrated good verbal understanding. Patient up in chair with call light in reach. DME: With Patients permission ordered no equipment via [employer]. If any questions contact [facility] DME Provider at [phone]. 6 Clicks Basic Mobility PT 12/08/20 Difficulty turning over in bed 4 Difficulty sitting down and standing up from a chair with arms 3 Difficulty moving from lying on back to sitting on the side of the bed 3 Help from another person moving to and from bed to a chair 3 Help from another person to walk in hospital room 3 Help from another person climbing 3-5 steps with a railing 3 PT 6 Clicks Score 19 6 Click Score Guidelines: 1 - Total = Requires total assistance, or cannot do at all. 2 - A lot = Requires a lot of help (maximum to moderate assistance) Can use assistive devices. 3 - A little = Requires a little help (supervision, minimal assistance) Can use assistive devices. 4 - None = Does not require any help and does the activity independently. Can use assistive devices. ASSESSMENT: Isela Myles is a 35 year old male admitted from home d/t SOB, cough. At time of evaluation, pt demonstrates decreased strength and endurance limiting independence with functional mobility. Pt presenting below baseline status, will benefit from PT services during hospitalization to address. Patient is functionally appropriate for discharge home once medically cleared. Recommend Home Physical Therapy. Problems: Decreased ROM/strength Decreased functional mobility Decreased endurance Decreased education in exercise/precautions Decreased cognition/behavior Rehabilitation Potential: Good Goals (to be achieved by 10 days (more content not included)... [facility] 12-08-2020 Note OCCUPATIONAL THERAPY INITIAL EVALUATION Patient seen from 838 to 906 on [facility] 3[facility] unit for 28 minutes. Co-eval and tx with PT for skilled management of patient Reason for Admit: 35 y.o. M transfer from OSH adm with migraine x3 days, anasarca Diagnosis: Acute hypoxemic hypercapnic respiratory failure Obstructive sleep apnea Precautions/Activity Order: moderate falls, full code, progressive mobility Procedures this admit: 12/07 Past Medical and Surgical History: PMH: Past Medical History: Diagnosis Date * HTN (hypertension) PSH: No past surgical history on file. SUBJECTIVE: Patient Subjective: I go fishing, or hang out with my friends. re: What do you do outside of work? 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 Equipment available at home: grab bars at toilet, shower, shower chair (however not appropriate size for pt) No falls in past 6 month OBJECTIVE: Patient Identification: patient verbalizing his/her name and date of . 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, Pulse Oximeter, Oxygen at 2L (PT titrate to 4L), Palacios and BP cuff, hep-locked IV Alertness: WFL Affect: WNL Cooperation/Behavior: Appropriate dialogue with therapist and Pleasant and cooperative Communication: WFL Pain: Pain ratin/10, Location: n/a Pain Relief Interventions Implemented: None required; No pain at this time Self Care: Assistance Level Dep Max Mod Min CG CS DS NC I Set-Up Comment Feeding x Eating breakfast on arrival, appropriate utilization of utensils and self-feeds without assistance Grooming/Hygiene x Facial hygiene in standing, supervision for pt safety Bathing:UB x Simulated Bathing:LB x Simulated Dressing:UB x Manage gown in standing and seated EOB Dressing: LB x Pt reports increased difficulty managing LB dressing (socks). Pt reports completing in modified long sit with leg propped on seat and attempts to reach toes. Educated patient on sock aide and pt receptive, pt may benefit from further education and demonstration during acute care stay. Toileting x Anticipated, pt declines at this time Transfers/Bed Mobility: Assistance Level Dep Max Mod Min CG CS DS NC I Set-Up Comment Toilet Transfers x Anticipated Bed Transfers x Seated EOB to standing without AD. CG for pt safety. Wide LILIANA. Standing to seated in chair, CG for seated to standing from chair to steady self on feet. Bed Mobility x Supine to seated EOB. Pt benefits from deflated mattress to increase ability for BLE to reach floor. Reaches for therapist arm to assist in trunk management to sit upright Functional mobility x In room mobility without AD x2. Initially on 2L O2, desats to 84%. PT increases O2 to 4L, pt completes further in room mobility and desats to 92%. No LOB, wide LILIANA noted. Patient remained seated in bedside chair end of session. Call lovett and telephone within reach. Patient instructed to call for staff assist when ready to return to bed and for all mobility. RN aware of patient location and mobility status. Endurance for Self Care: Good Static Sitting Balance: Good Dynamic Sitting Balance: Fair+ UE Motor: BUE AROM WFL BUE MMT 4/5 Vision/Perception: WFL - noted pt with strabismus to R eye, however pt reports no visual limitations Cognition: Orientation: Oriented to person, place and date Follows Commands: WFL Attention: WNL Memory: WFL Problem Solving: WFL Safety/Judgement: insight beginning to develop Sequencing: WFL Other Specialized Tests: None Patient/Family Education: Instructed patient in roles of therapy and Patient instructed in utilization of AE, d/c planning, breathing techniques Patient up in chair with call light in reach. ??? 6 Clicks Daily Activity OT 12/08/2020 Help from another person Eating meals 4 Help from another person taking care of personal grooming 3 Help from another person bathing 3 Help from another person putting on and taking off regular upper body clothing 3 Help from another person putting on and taking off regular lower body (more content not included)... [facility] 12-07-2020 Note 12/07/20 4015 Assessment and Discharge Planning Evaluation READMISSION LESS THAN 30 DAYS No READMISSION RISK SCORE IS Low Risk INTERVIEWED Chart Review COGNITIVE STATUS Age Appropriate LIVING SITUATION Home - Own PCP VERIFIED No ADMISSION INSURANCE Medicaid [place] [facility] [place] and/or from Appointments Family/Friend Provides Ride HOME HEALTH CARE PRIOR TO ADMISSION No TENTATIVE DISCHARGE PLAN Home - Own READMISSION RISK SCORE SHOULD BE Remain Unchanged REASON READMISSION SCORE NEEDS ADJUSTED NA CM attempted to reach out to patient's aunt Nathaly Terrell at [phone], however, patient's aunt was not available at this time. Patient is unavailable at this time both in person and for a telephone interview as patient is resting quietly in his room. Chart review completed. No needs assessed at this time. CM will remain available to assist with discharge planning and or needs as warranted. Zhou FREEDN, RN Inpatient Software Deployment EngineerPhotostat Operator Helper: [phone] ([phone]) [facility] 12-07-2020 Note MICU Progress Note Isela Myles 35 year old 457.11058 lbs MRN/Room: [id number]/CP3-123/1 Code Status: Full Code Admit Date: 12/06/2020 Length of stay: 1 day(s) Summary Isela Myles is a 35 year old male with a history of HTN, obesity, bronchitis, and chronic migraine who presents as a transfer from [facility] increasing cough, SOB, and headache. He reports 3 days of morning headaches that prompted him to present to the ED. He also endorses one week of increasing cough with green sputum production. Of note, he his significant other has noticed that he occasionally stops breathing during his sleep. He does not follow regularly with his PCP and has never undergone a PSG. He does have a history of bronchitis that usually resolve with outpatient ABX treatement. On presentation to the ED, he was noted to have anasarca and BMI was greater than 50. He was hypoxic and was started om 3L NC with improvement of SpO2 to low 90's. Vitals were notable for tachycardia (117), tachypnia (24), and hypertension (179/93). ABG showed pH of 7.27 with respiratory acidosis and elevated pCO2 of 82, Bicarb 41, O2 96%. Pro-BNP was elevated to 628. BiPAP was started at 10/6 at 50% FiO2. Repeat ABG showed CO2 of 106. Increased BiPAP setting to 12/6, 40%, rate of 14. -CT chest PE study showed GGO on the right lower lobe but contrast was suboptimal for evaluation of pulmonary emboli. -CT head w/o contrast: No acute disease -CT Abd/pelvis showed stranding in the subcutaneous tissue anterior to the base of the penis with mild thickening of overlying skin that correlates with cellulitis. Fat containing left inguinal hernia. Diffuse fatty infiltration of the liver. Horseshoe kidney. -EKG: Sinus Tachycardia with QTC of 459 -Blood culture growing gram positive cocci x1, with other bottle no growth. Started on 2 gram of rocephin and Vanc. Zosyn given as well. -Received 40 mg of IV lasix PSH: Eye surgery ( Lazy eye ) ??? FH: HTN, DM2, stroke, ovarian cancer ??? SH: Denies tobacco abuse but endorse second hand smoking exposure Drinks 5 beers a week (usually on the weekends), denies recreational drug usage. ??? Medications: None ??? Allergies: none Subjective Feels well this morning. Tolerated BiPAP well overnight. Headache has resolved. Vital Signs and I/Os Vital sign ranges over the past 24 hours (retrieved 12/07/2020 at 5:52 AM): Tmax (24 hours): 98.5 ???F (36.9 ???C) Pulse Av.1 Min: 89 Max: 104 Systolic (24hrs), Av , Min:107 , Max:160 Diastolic (24hrs), Av, Min:31, Max:92 MAP (mmHg) Av.8 mmHg Min: 51 mmHg Max: 108 mmHg Resp Av.7 Min: 15 Max: 27 SpO2 Av.2 % Min: 95 % Max: 100 % Patient Vitals for the past 24 hrs: BP Temp Temp src Pulse Resp SpO2 O2 Device O2 Flow Rate (l/min) FiO2 (%) 12/07/20 0500 133/67 -- -- 95 16 98 % -- -- -- 12/07/20 0400 122/67 98.5 ???F (36.9 ???C) Oral 97 15 95 % BiPAP -- 40 12/07/20 0300 141/66 -- -- 92 18 95 % -- -- -- 12/07/20 0200 120/68 -- -- 104 21 96 % BiPAP -- 40 12/07/20 0100 122/58 -- -- 96 21 96 % -- -- -- 12/07/20 0044 -- -- -- 98 24 97 % BiPAP -- 40 12/07/20 0000 107/31 98.4 ???F (36.9 ???C) Oral 103 19 97 % BiPAP -- 40 12/06/20 2300 143/64 -- -- 102 22 96 % -- -- -- 12/06/209 -- -- -- 102 20 96 % BiPAP -- 40 12/06/20 2200 151/90 -- -- 101 19 96 % Nasal cannula 4 -- 12/06/20 2130 142/90 -- -- 100 17 99 % -- -- -- 12/06/202101 -- -- -- 98 19 99 % Nasal cannula 4 -- 12/06/20 2100 148/82 -- -- 98 17 99 % -- -- -- 12/06/20 2045 134/74 -- -- 96 19 98 % -- -- -- 12/06/202029 129/86 -- -- 95 16 99 % -- -- -- 12/06/202014 144/92 -- -- 100 25 99 % -- -- -- 12/06/201999 121/80 98.4 ???F (36.9 ???C) Oral 89 22 100 % BiPAP -- 40 12/06/201929 160/88 -- -- 97 17 96 % -- -- -- 12/06/201928 -- -- -- 97 27 96 % BiPAP -- 40 Weight From prior to hospitalization no prior weight on file During hospitalization Change in Weight: Current value is 457.2 lb (207.398 kg) on 12/06/2020 at 1999 No other value found for comparison I/O Intake/Output Summary (Last 24 hours) at 12/07/2020 0552 Last data filed at 12/07/2020 0500 Gross per 24 hour Intake 1050 ml Output 3271 ml Net -2221 ml Current Medications * furosemide 40 mg 2x Daily Diuretic * vancomycin iv 2,000 mg Every 12 hours * cefTRIAXone orderable 1,000 mg Q24H Antibiotic * enoxaparin 60 mg 2x Daily * docusate sodium 100 mg 2x Daily * vancomycin dosing pharmacy consult As Directed * acetaminophen 650 mg Q4H PRN Physical Examination Gen: White male lying in bed in NAD, on BiPAP, Obese HEENT: Normocephalic, atraumatic. Dry MM Neck: No lymphadenopathy CV: Tachycardic, regular rhythm. No murmurs. Lungs: Poor air movement, No appreciable wheezes, rales, or rhonchi. Abdomen: Soft, obese, non-tender. Normoactive bowel sounds. Extremities: No clubbing, cyanosis, 2+ edema. 2+ peripheral pulses. Neuro: A AND Ox3 Laboratory Tests Basic Metab (more content not included)... [employer] [facility] Summary Purpose Family History No Family History Records FoundNo Family History Records Found Advance Directives No Advanced Directives Records FoundNo Advanced Directives Records Found Additional Source Comments (unrecognized sect ion and content) No Status Records FoundNo Status Records Found INFORMATION SOURCE (unrecogn ized section and content) DATE CREATED AUTHOR AUTHOR'S ADOLFO TAVARES 06/06/2022 [facility] FOR RECORDS PERTAINING TO PATIENTS WHO ARE OR HAVE BEEN ENROLLED IN A CHEMICAL DEPENDENCY/SUBSTANCEABUSE PROGRAM, SOME INFORMATION MAY BE OMITTED. This clinical summary was aggregated from multiple sources. Caution should be exercised in using it in the provision of clinical care. This summary normalizes information from multiple sources, and as a consequence, information in this document may materially change the coding, format and clinical context of patient data. In addition, data may be omitted in some cases. CLINICAL DECISIONS SHOULD BE BASED ON THE PRIMARY CLINICAL RECORDS. [facility] [employer] [facility]. provides no warranty or guarantee of the accuracy or completeness of information in this document.
== END | disposition home or self-care (01) ==
LOC: US 07:58
PROVIDERS: PCP Family Medicine; Referring Provider Internal Medicine; Visit Provider Internal Medicine
DX: E66.01 Morbid (severe) obesity due to excess calories (principal); Z68.44 Body mass index [BMI] 60.0-69.9, adult; K76.0 Fatty (change of) liver, not elsewhere classified
CPT/HCPCS: 76705; 76981